=== PATIENT | female | born 1995 | race Caucasian/White ===

== ENCOUNTER 2016-09-15 10:11 | Emergency (ER) | payer OTHER ==
[~2016-09-15] VITALS: Ht 160 cm; Wt 63.5 kg
[~2016-09-15 10:11] MED LIST: BUPROPION HCL75 MG PO; BUTALB-CAFF-AC1 EACH PO; CIPROFLOXACIN500 MG PO; CYCLOBENZAPRINE10 MG PO; MECLIZINE HCL25 MG PO; NORCO 5-325 TA1 EACH PO; PREDNISONE20 MG PO; RECLIPSEN1 EACH PO; TERCONAZOLE20 GM VAGINAL; VENTOLIN HFA18 GM INH; ZOFRAN ODT8 MG PO
--- OUTSIDE RECORDS SUMMARY | 2016-09-15 11:12 | XMS ---
Demographics + + + | Address | [address] | | | [place] [address] | + + + | Preferred Language | Unknown | + + + | Marital Status | Unknown | + + + | Uatsdin Affiliation | Unknown | + + + | Race | Unknown | + + + | Ethnic Group | Unknown | + + + Author + + + | Author | [facility] | + + + | Organization | [facility] | + + + | Address | [address] | | | [place] [address] | + + + | Phone | | + + + Care Team Providers + + + + | Care Furnace Loader Name | Role | Phone | + + + + Unavailable | Unavailable | + + + + PROBLEMS + + + + + + + + | Type | Condition | ICD9-CM | VPQ17-IA | Onset | Condition | SNOMED | | | | Code | Code | Dates | Status | Code | + + + + + + + + | Problem | Dysthymia | F34.1 | | | Active | 26164988 | + + + + + + + + | Problem | Family | | Z83.3 | | Active | 725168620 | | | history of | | | | | | | | diabetes | | | | | | | | mellitus | | | | | | + + + + + + + + | Problem | Fatigue | | R53.83 | | Active | 44344323 | + + + + + + + + | Problem | Right foot | | S99.921A | | Active | | | | injury | | | | | | + + + + + + + + | Assessment | Right foot | | S99.921A | 18 Apr, | Active | | | | injury | | | 2017 | | | + + + + + + + + | Problem | Unable to | R26.89 | | | Active | 63938603 | | | bear | | | | | | | | weight | | | | | | + + + + + + + + | Problem | Vaginal | | N89.8 | | Active | 028102876 | | | discharge | | | | | | + + + + + + + + | Problem | History of | Z86.2 | | | Active | 710451466 | | | anemia | | | | | | + + + + + + + + | Problem | Low | E87.6 | | | Active | 08772463 | | | potassium | | | | | | | | syndrome | | | | | | + + + + + + + + | Problem | Acute | | N30.01 | | Active | 45300289 | | | cystitis | | | | | | | | with | | | | | | | | hematuria | | | | | | + + + + + + + + | Problem | On | V25.49 | | | Active | 793188783 | | | Depo-Prove | | | | | | | | ra for | | | | | | | | contracept | | | | | | | | ion | | | | | | + + + + + + + + | Problem | Blurry | 368.8 | | | Active | 82293968 | | | vision, | | | | | | | | bilateral | | | | | | + + + + + + + + | Problem | Asthma | 493.90 | | | Active | 411078280 | + + + + + + + + | Problem | Drug | 995.20 | | | Active | 27791617 | | | reaction | | | | | | + + + + + + + + | Problem | Migraine | 346.90 | | | Active | 75848925 | + + + + + + + + | Problem | Depression | | F32.9 | | Active | 136685664 | + + + + + + + + | Problem | Menorrhagi | 626.2 | | | Active | 663930267 | | | a | | | | | | + + + + + + + + | Problem | Acute | | J01.11 | | Active | 52325515 | | | recurrent | | | | | | | | frontal | | | | | | | | sinusitis | | | | | | + + + + + + + + | Problem | Blood | 289.9 | | | Active | 24791885 | | | dyscrasia | | | | | | + + + + + + + + | Problem | BOM | H66.93 | | | Active | 09661070 | | | (bilateral | | | | | | | | otitis | | | | | | | | media) | | | | | | + + + + + + + + ALLERGIES + + + + +--------+ | Substance | Reaction | Event Type | Date | Status | + + + + +--------+ | Latex | irritation | Drug Allergy | Jun, | Active | + + + + +--------+ | Depo Provera IM | visual | Drug Allergy | Jun, | Active | | | changes/blurry | | | | | | vision | | | | + + + + +--------+ SOCIAL HISTORY No smoking Hx information available PLAN OF CARE VITAL SIGNS + + + + | Height | 63.5 in | 2016-06-20 | + + + + | Weight | 162.0 lbs | 2016-06-20 | + + + + | BMI | 28.24 kg/m2 | 2016-06-20 | + + + + | Temperature | 98.3 degrees Fahrenheit | 2016-06-20 | + + + + | Heart Rate | 95 /min | 2016-06-20 | + + + + | Blood pressure systolic | 117 mm Hg | 2016-06-20 | + + + + | Blood pressure diastolic | 59 mm Hg | 2016-06-20 | + + + + MEDICATIONS + + + + + + + +--------+ | Medicati | Instruct | Dosage | Frequenc | Start | End Date | Duration | Status | | on | ions | | y | Date | | | | + + + + + + + +--------+ | EpiPen | Injectio | | | | | | Active | | 0.3 | n prn | | | | | | | | MG/0.3ML | allergie | | | | | | | | | s | | | | | | | + + + + + + + +--------+ | Wellbutr | Orally | 1 tablet | 12h | 14 Feb, | | 30 days | Active | | in SR | Twice a | | | 2016 | | | | | 150 MG | day | | | | | | | + + + + + + + +--------+ | Albutero | Inhalati | 2 puffs | 4h | 13 Dec, | | 30 days | Active | | l | on every | as | | 2013 | | | | | Sulfate | 4 hrs | needed | | | | | | | HFA 108 | | | | | | | | | (90 | | | | | | | | | Base) | | | | | | | | | MCG/ACT | | | | | | | | + + + + + + + +--------+ | Toradol | orally | as | | 18 Jun, | Jun, | 5 day(s) | Active | | 10 mg | tid prn | directed | | 2016 | 2016 | | | + + + + + + + +--------+ RESULTS No Results PROCEDURES + + + + + | Procedure | Date Ordered | Related Diagnosis | Body Site | + + + + + | INJ KETOROLAC | June 20, 2016 | | | | TROMETHAMINE 15 MG | | | | + + + + + | INJECTION | June 20, 2016 | | | | INTRAMUSCULAR OR | | | | | SUBCUTANEOUS | | | | + + + + + | Est Level III | June 20, 2016 | | | | Intermediate | | | | + + + + + IMMUNIZATIONS + + + + + | Vaccine | Route | Administration Date | Status | + + + + + | Ketorolac 30mg | IM Intramuscular | June 20, 2016 | Administered | + + + + +"
--- OUTSIDE RECORDS SUMMARY | 2016-09-15 11:12 | XMS ---
Demographics + + + | Address | [address] | | | [place] [address] | + + + | Preferred Language | Unknown | + + + | Marital Status | Unknown | + + + | Sabianism Affiliation | Unknown | + + + | Race | Unknown | + + + | Ethnic Group | Unknown | + + + Author + + + | Author | [facility] | + + + | Organization | [facility] | + + + | Address | [address] | | | [place] [address] | + + + | Phone | | + + + Care Team Providers + + + + | Care Audience Development Manager Name | Role | Phone | + + + + Unavailable | Unavailable | + + + + PROBLEMS +---------+ + + +--------+ + + | Type | Condition | ICD9-CM | QVD02-PC | Onset | Condition | SNOMED | | | | Code | Code | Dates | Status | Code | +---------+ + + +--------+ + + | Problem | Family | | Z83.3 | | Active | 792011099 | | | history of | | | | | | | | diabetes | | | | | | | | mellitus | | | | | | +---------+ + + +--------+ + + | Problem | Vaginal | | N89.8 | | Active | 514598583 | | | discharge | | | | | | +---------+ + + +--------+ + + | Problem | History of | Z86.2 | | | Active | 928287348 | | | anemia | | | | | | +---------+ + + +--------+ + + | Problem | Encounter | Z32.02 | | | Active | 861543958 | | | for | | | | | | | | | | | | | | | | test with | | | | | | | | result | | | | | | | | negative | | | | | | +---------+ + + +--------+ + + | Problem | Drug | 995.20 | | | Active | 38295831 | | | reaction | | | | | | +---------+ + + +--------+ + + | Problem | UTI | | N39.0 | | Active | 93780432 | | | (urinary | | | | | | | | tract | | | | | | | | infection) | | | | | | +---------+ + + +--------+ + + | Problem | Asthma | 493.90 | | | Active | 194592132 | +---------+ + + +--------+ + + | Problem | Low | E87.6 | | | Active | 20019681 | | | potassium | | | | | | | | syndrome | | | | | | +---------+ + + +--------+ + + | Problem | Acute | | N30.01 | | Active | 13258770 | | | cystitis | | | | | | | | with | | | | | | | | hematuria | | | | | | +---------+ + + +--------+ + + | Problem | Right foot | | S99.921A | | Active | | | | injury | | | | | | +---------+ + + +--------+ + + | Problem | Unable to | R26.89 | | | Active | 55050759 | | | bear | | | | | | | | weight | | | | | | +---------+ + + +--------+ + + | Problem | Menorrhagi | 626.2 | | | Active | 974295231 | | | a | | | | | | +---------+ + + +--------+ + + | Problem | Blood | 289.9 | | | Active | 20010605 | | | dyscrasia | | | | | | +---------+ + + +--------+ + + | Problem | On | V25.49 | | | Active | 978070344 | | | Depo-Prove | | | | | | | | ra for | | | | | | | | contracept | | | | | | | | ion | | | | | | +---------+ + + +--------+ + + | Problem | Blurry | 368.8 | | | Active | 58023413 | | | vision, | | | | | | | | bilateral | | | | | | +---------+ + + +--------+ + + | Problem | Acute | | J01.11 | | Active | 85893563 | | | recurrent | | | | | | | | frontal | | | | | | | | sinusitis | | | | | | +---------+ + + +--------+ + + | Problem | BOM | H66.93 | | | Active | 89259396 | | | (bilateral | | | | | | | | otitis | | | | | | | | media) | | | | | | +---------+ + + +--------+ + + | Problem | Migraine | 346.90 | | | Active | 08830374 | +---------+ + + +--------+ + + | Problem | Dysthymia | F34.1 | | | Active | 03933350 | +---------+ + + +--------+ + + | Problem | Depression | | F32.9 | | Active | 255241669 | +---------+ + + +--------+ + + | Problem | Fatigue | | R53.83 | | Active | 81554242 | +---------+ + + +--------+ + + ALLERGIES Unknown Allergies SOCIAL HISTORY No smoking Hx information available PLAN OF CARE VITAL SIGNS MEDICATIONS Unknown Medications RESULTS No Results PROCEDURES No Known procedures IMMUNIZATIONS No Known Immunizations"
--- OUTSIDE RECORDS SUMMARY | 2016-09-15 11:12 | XMS ---
Demographics + + + | Address | [address] | | | [place] [address] | + + + | Preferred Language | Unknown | + + + | Marital Status | Unknown | + + + | Christianity Affiliation | Unknown | + + + | Race | Unknown | + + + | Ethnic Group | Unknown | + + + Author + + + | Author | [facility] | + + + | Organization | [facility] | + + + | Address | [address] | | | [place] [address] | + + + | Phone | | + + + Care Team Providers + + + + | Care Retail Experience Specialist Name | Role | Phone | + + + + Unavailable | Unavailable | + + + + PROBLEMS + + + + + + + + | Type | Condition | ICD9-CM | DKV13-DK | Onset | Condition | SNOMED | | | | Code | Code | Dates | Status | Code | + + + + + + + + | Problem | Family | | Z83.3 | | Active | 920266690 | | | history of | | | | | | | | diabetes | | | | | | | | mellitus | | | | | | + + + + + + + + | Problem | Vaginal | | N89.8 | | Active | 381771725 | | | discharge | | | | | | + + + + + + + + | Problem | History of | Z86.2 | | | Active | 782333236 | | | anemia | | | | | | + + + + + + + + | Problem | Encounter | Z32.02 | | | Active | 274770814 | | | for | | | | | | | | | | | | | | | | test with | | | | | | | | result | | | | | | | | negative | | | | | | + + + + + + + + | Problem | Drug | 995.20 | | | Active | 82228489 | | | reaction | | | | | | + + + + + + + + | Problem | UTI | | N39.0 | | Active | 91886084 | | | (urinary | | | | | | | | tract | | | | | | | | infection) | | | | | | + + + + + + + + | Problem | Asthma | 493.90 | | | Active | 552187605 | + + + + + + + + | Assessment | UTI | | N39.0 | 02 July, | Active | 11015115 | | | (urinary | | | 2017 | | | | | tract | | | | | | | | infection) | | | | | | + + + + + + + + | Problem | Low | E87.6 | | | Active | 74132824 | | | potassium | | | | | | | | syndrome | | | | | | + + + + + + + + | Problem | Acute | | N30.01 | | Active | 50938217 | | | cystitis | | | [...] | R26.89 | | | Active | 41504833 | | | bear | | | | | | | | weight | | | | | | + + + + + + + + | Problem | Menorrhagi | 626.2 | | | Active | 518631938 | | | a | | | | | | + + + + + + + + | Problem | Blood | 289.9 | | | Active | 98372206 | | | dyscrasia | | | | | | + + + + + + + + | Problem | On | V25.49 | | | Active | 880324151 | | | Depo-Prove | | | | | | | | ra for | | | | | | | | contracept | | | | | | | | ion | | | | | | + + + + + + + + | Problem | Blurry | 368.8 | | | Active | 81087859 | | | vision, | | | | | | | | bilateral | | | | | | + + + + + + + + | Problem | Acute | | J01.11 | | Active | 21124947 | | | recurrent | | | | | | | | frontal | | | | | | | | sinusitis | | | | | | + + + + + + + + | Problem | BOM | H66.93 | | | Active | 95256548 | | | (bilateral | | | | | | | | otitis | | | | | | | | media) | | | | | | + + + + + + + + | Problem | Migraine | 346.90 | | | Active | 46216127 | + + + + + + + + | Problem | Dysthymia | F34.1 | | | Active | 27251998 | + + + + + + + + | Problem | Depression | | F32.9 | | Active | 451212905 | + + + + + + + + | Problem | Fatigue | | R53.83 | | Active | 64480684 | + + + + + + + + ALLERGIES + + + + +--------+ | Substance | Reaction | Event Type | Date | Status | + + + + +--------+ | Latex | irritation | Drug Allergy | July, | Active | + + + + +--------+ | Depo Provera IM | visual | Drug Allergy | July, | Active | | | changes/blurry | | | | | | vision | | | | + + + + +--------+ SOCIAL HISTORY No smoking Hx information available PLAN OF CARE VITAL SIGNS + + + + | Height | 63.5 in | 2016-07-04 | + + + + | Weight | 156.4 lbs | 2016-07-04 | + + + + | BMI | 27.27 kg/m2 | 2016-07-04 | + + + + | Temperature | 98.3 degrees Fahrenheit | 2016-07-04 | + + + + | Heart Rate | 98 /min | 2016-07-04 | + + + + | Blood pressure systolic | 123 mm Hg | 2016-07-04 | + + + + | Blood pressure diastolic | 73 mm Hg | 2016-07-04 | + + + + MEDICATIONS + [...] | 2 puffs | 4h | 13 Oct, | | 30 days | Active | [...] + + + + + +--------+ | Macrobid | Orally | 1 | 12h | 04 July, | 7 July, | 5 day(s) | Active | | 100 mg | every 12 | capsule | | 2016 | 2016 | | | | | hrs | with | | | | | | | | | food | | | | | | + [...] SR | Twice a | | | 2017 | | | | | 150 MG | day | | | | | | | + + + + + + + +--------+ RESULTS + +--------+------+ + | Name | Result | Date | Reference Range | + +--------+------+ + | Urinalysis, Dip | | | | | (IH) | | | | + +--------+------+ + | Specific [place] | 1.025 | | | + +--------+------+ + | pH | 5 | | | + +--------+------+ + | Leukocytes | 500 | | | + +--------+------+ + | Nitrite, Urine | neg | | | + +--------+------+ + | Protein | 30 | | | + +--------+------+ + | Glucose | norm | | | + +--------+------+ + | Ketones | neg | | | + +--------+------+ + | Urobilingen, | norm | | | | Semi-Qn | | | | + +--------+------+ + | Bilirubin | neg | | | + +--------+------+ + | Blood Hemoglobin | 250 | | | | (BLD) | | | | + +--------+------+ + | Urinalysis, HCG | | | | | (IH) | | | | + +--------+------+ + PROCEDURES + + + + + | Procedure | Date Ordered | Related Diagnosis | Body Site | + + + + + | LAB URINALYSIS (DIP | July 04, 2016 | | | | STICK ONLY | | | | + + + + + | Est Level III | July 04, 2016 | | | | Intermediate | | | | + + + + + IMMUNIZATIONS No Known Immunizations"
[2016-09-15] MEDS ORDERED: CIPRO500 MG PO (11:38)
== END 2016-09-15 11:56 | disposition home or self-care (01) ==
LOC: ED 10:11
DX: N39.0 Urinary tract infection, site not specified (principal); J45.909 Unspecified asthma, uncomplicated; Z91.040 Latex allergy status; Z91.011 Allergy to milk products; Z91.018 Allergy to other foods
CPT/HCPCS: 80048; 81001; 84703; 85025; 96361; 96374; 96375; 99283; J1885; J2405; J7030

== ENCOUNTER 2016-10-12 03:14 | Emergency (ER) | payer OTHER ==
[~2016-10-12] VITALS: Ht 160 cm; Wt 77.1 kg
[~2016-10-12 03:14] MED LIST changes: +CIPRO500 MG PO
--- OUTSIDE RECORDS SUMMARY | 2016-10-12 03:54 | XMS ---
Demographics + + + | Address | [address] | | | [place] [address] | + + + | Preferred Language | Unknown | + + + | Marital Status | Unknown | + + + | Sikh Affiliation | Unknown | + + + | Race | Unknown | + + + | Ethnic Group | Unknown | + + + Author + + + | Author | [facility] | + + + | Organization | [facility] | + + + | Address | [address] | | | [place] [address] | + + + | Phone | | + + + Care Team Providers + + + + | Care Windows Phone Developer Name | Role | Phone | + + + + Unavailable | Unavailable | + + + + PROBLEMS +---------+ + + +--------+ + + | Type | Condition | ICD9-CM | TXZ37-IL | Onset | Condition | SNOMED | | | | Code | Code | Dates | Status | Code | +---------+ + + +--------+ + + | Problem | Family | | Z83.3 | | Active | 068538932 | | | history of | | | | | | | | diabetes | | | | | | | | mellitus | | | | | | +---------+ + + +--------+ + + | Problem | Vaginal | | N89.8 | | Active | 626921102 | | | discharge | | | | | | +---------+ + + +--------+ + + | Problem | History of | Z86.2 | | | Active | 901114349 | | | anemia | | | | | | +---------+ + + +--------+ + + | Problem | Encounter | Z32.02 | | | Active | 977462464 | | | for | | | | | | | | | | | | | | | | test with | | | | | | | | result | | | | | | | | negative | | | | | | +---------+ + + +--------+ + + | Problem | Drug | 995.20 | | | Active | 70671438 | | | reaction | | | | | | +---------+ + + +--------+ + + | Problem | UTI | | N39.0 | | Active | 59010494 | | | (urinary | | | | | | | | tract | | | | | | | | infection) | | | | | | +---------+ + + +--------+ + + | Problem | Asthma | 493.90 | | | Active | 060587378 | +---------+ + + +--------+ + + | Problem | Low | E87.6 | | | Active | 39874778 | | | potassium | | | | | | | | syndrome | | | | | | +---------+ + + +--------+ + + | Problem | Acute | | N30.01 | | Active | 58827153 | | | cystitis | | | [...] | R26.89 | | | Active | 85537645 | | | bear | | | | | | | | weight | | | | | | +---------+ + + +--------+ + + | Problem | Menorrhagi | 626.2 | | | Active | 757313303 | | | a | | | | | | +---------+ + + +--------+ + + | Problem | Blood | 289.9 | | | Active | 90112533 | | | dyscrasia | | | | | | +---------+ + + +--------+ + + | Problem | On | V25.49 | | | Active | 258576146 | | | Depo-Prove | | | | | | | | ra for | | | | | | | | contracept | | | | | | | | ion | | | | | | +---------+ + + +--------+ + + | Problem | Blurry | 368.8 | | | Active | 41828722 | | | vision, | | | | | | | | bilateral | | | | | | +---------+ + + +--------+ + + | Problem | Acute | | J01.11 | | Active | 18755733 | | | recurrent | | | | | | | | frontal | | | | | | | | sinusitis | | | | | | +---------+ + + +--------+ + + | Problem | BOM | H66.93 | | | Active | 87104206 | | | (bilateral | | | | | | | | otitis | | | | | | | | media) | | | | | | +---------+ + + +--------+ + + | Problem | Migraine | 346.90 | | | Active | 05796634 | +---------+ + + +--------+ + + | Problem | Dysthymia | F34.1 | | | Active | 20779879 | +---------+ + + +--------+ + + | Problem | Depression | | F32.9 | | Active | 644922696 | +---------+ + + +--------+ + + | Problem | Fatigue | | R53.83 | | Active | 12421238 | +---------+ + + +--------+ + + ALLERGIES + + + + +--------+ | Substance | Reaction | Event Type | Date | Status | + + + + +--------+ | Latex | irritation | Drug Allergy | Sep, | Active | + + + + +--------+ | Depo Provera IM | visual | Drug Allergy | Sep, | Active | | | changes/blurry | | | | | | vision | | | | + + + + +--------+ SOCIAL HISTORY No smoking Hx information available PLAN OF CARE + +---------+ | Activity | Details | + +---------+ +---+ | | +---+ + + + | Follow Up | as scheduled with PCP Reason:null | + + + | Pending Test | Urine Culture, Routine | + + + VITAL SIGNS + + + + | Height | 63.5 in | 2016-09-09 | + + + + | Weight | 165.2 lbs | 2016-09-09 | + + + + | BMI | 28.80 kg/m2 | 2016-09-09 | + + + + | Temperature | 99.1 degrees Fahrenheit | 2016-09-09 | + + + + | Heart Rate | 88 /min | 2016-09-09 | + + + + | Blood pressure systolic | 106 mm Hg | 2016-09-09 | + + + + | Blood pressure diastolic | 75 mm Hg | 2016-09-09 | + + + + MEDICATIONS + [...] Orally | 1 tablet | 12h | Apr, | | 30 days | Active | | in SR | Twice a | | | 2016 | | | | | 150 MG | day | | | | | | | + + + + + + + +--------+ | Bactrim | Orally | 1 tablet | 12h | Sep, | 11 Sep, | 3 days | Active | | DS | bid | | | 2016 | 2016 | | | | 800-160 | | | | | | | | | MG | | | | | | | | + + + + + + + +--------+ | BuPROPio | Orally | 1 tablet | 24h | | | | Active | | n HCl ER | Once a | in the | | | | | | | (XL) | day | morning | | | | | | | 150 MG | | | | | | | [...] | | + +--------+------+ + | Specific [place] | 1.020 | | | + +--------+------+ + | pH | 5 | | | + +--------+------+ + | Leukocytes | 500 | | | + +--------+------+ + | Nitrite, Urine | neg | | | + +--------+------+ + | Protein | 100 | | | + +--------+------+ + | Glucose | norm | | | + +--------+------+ + | Ketones | 15 | | | + +--------+------+ + | Urobilingen, | 1 | | | | Semi-Qn | | | | + +--------+------+ + | Bilirubin | 1 | | | + +--------+------+ + | [...] + + | LAB URINALYSIS (DIP | September 09, 2016 | | | | STICK ONLY | | | | + + + + + | FC [id number] URINE | September 09, 2016 | | | | TEST | | | | + + + + + | Est Level III | September 09, 2016 | | | | Intermediate | | | | + + + + + IMMUNIZATIONS No Known Immunizations"
== END 2016-10-12 07:15 | disposition home or self-care (01) ==
LOC: ED 03:14
DX: O26.891 Other specified pregnancy related conditions, first trimester (principal); R10.2 Pelvic and perineal pain; O99.511 Diseases of the respiratory system complicating pregnancy, first trimester; J45.909 Unspecified asthma, uncomplicated; O99.331 Smoking (tobacco) complicating pregnancy, first trimester; F17.200 Nicotine dependence, unspecified, uncomplicated; Z87.442 Personal history of urinary calculi; Z91.040 Latex allergy status; Z91.018 Allergy to other foods; Z88.8 Allergy status to other drugs, medicaments and biological substances; Z79.899 Other long term (current) drug therapy; Z3A.01 Less than 8 weeks gestation of pregnancy
CPT/HCPCS: 76801; 76817; 81001; 84702; 85025; 99284

== ENCOUNTER 2016-12-11 21:23 | Emergency (ER) | payer OTHER ==
[~2016-12-11] VITALS: Ht 160 cm; Wt 77.1 kg
== END 2016-12-11 23:49 | disposition home or self-care (01) ==
LOC: ED 21:23
DX: O9A.212 Injury, poisoning and certain other consequences of external causes complicating pregnancy, second trimester (principal); S39.91XA Unspecified injury of abdomen, initial encounter; O99.512 Diseases of the respiratory system complicating pregnancy, second trimester; J45.909 Unspecified asthma, uncomplicated; Z87.442 Personal history of urinary calculi; Z3A.16 16 weeks gestation of pregnancy; Z88.8 Allergy status to other drugs, medicaments and biological substances; Z91.040 Latex allergy status; Z91.018 Allergy to other foods; Z79.899 Other long term (current) drug therapy
CPT/HCPCS: 76815; 81001; 99284

== ENCOUNTER 2017-01-27 16:26 | Emergency (ER) | payer OTHER ==
[~2017-01-27] VITALS: Ht 160 cm; Wt 77.1 kg
[2017-01-27] MEDS ORDERED: DIPHENHYDRAMINE25 MG PO (19:56)
[2017-01-27] MEDS ORDERED: PROCHLORPERAZIN10 MG PO (19:56)
[2017-01-27] MEDS ORDERED: CEPHALEXIN500 MG PO (19:56)
== END 2017-01-27 20:14 | disposition home or self-care (01) ==
LOC: ED 16:26
DX: O9A.212 Injury, poisoning and certain other consequences of external causes complicating pregnancy, second trimester (principal); O23.42 Unspecified infection of urinary tract in pregnancy, second trimester; O99.89 Other specified diseases and conditions complicating pregnancy, childbirth and the puerperium; R11.0 Nausea; Z87.442 Personal history of urinary calculi; Z91.011 Allergy to milk products; Z91.040 Latex allergy status; Z91.048 Other nonmedicinal substance allergy status; Z79.899 Other long term (current) drug therapy; W10.9XXA Fall (on) (from) unspecified stairs and steps, initial encounter
CPT/HCPCS: 80053; 81001; 85025; 87088; 96361; 96374; 96375; 99284; J0780; J1200; J7030

== ENCOUNTER 2017-04-09 22:48 | Emergency (ER) | payer OTHER ==
[~2017-04-09] VITALS: Ht 160 cm; Wt 77.1 kg
[~2017-04-09 22:48] MED LIST changes: +CEPHALEXIN500 MG PO; +DIPHENHYDRAMINE25 MG PO; +PROCHLORPERAZIN10 MG PO
[2017-04-09] MEDS ORDERED: ONE A DAY PREN1 EACH PO (23:06)
[2017-04-12] MEDS ORDERED: TYLENOL325 MG PO (20:54)
[2017-04-12] MEDS ORDERED: EPIN0.3P IM (20:55)
== END 2017-04-10 01:40 | disposition home or self-care (01) ==
LOC: ED 22:48
DX: O99.513 Diseases of the respiratory system complicating pregnancy, third trimester (principal); J98.8 Other specified respiratory disorders; B97.89 Other viral agents as the cause of diseases classified elsewhere; Z91.040 Latex allergy status; Z91.011 Allergy to milk products; Z91.018 Allergy to other foods; Z88.8 Allergy status to other drugs, medicaments and biological substances; Z79.899 Other long term (current) drug therapy
CPT/HCPCS: 59025; 80053; 81001; 85025; 87502; 96360; 99283; J7030

== ENCOUNTER 2017-05-31 00:01 | Inpatient (IN) | payer OTHER ==
[~2017-05-31] VITALS: Ht 162.6 cm; Wt 92.0 kg
[~2017-05-31 00:01] MED LIST changes: +EPIN0.3P IM; +ONE A DAY PREN1 EACH PO; +TYLENOL325 MG PO
--- NOTE | 2017-06-01 11:35 | PR ---
[facility] [address] [facility] [place], [place] [address] Signed Progress Notes IP Datetime Report Generated by CPN: 06/01/2017 11:35 PROGRESS NOTES: [id number] Impression: Normal progression of labor Procedures: Artificial ROM Plan: Continue present management; Anticipate Vaginal Delivery VITAL SIGNS: [id number] Vital Signs: Reviewed; Within Normal Limits EXAM: [id number] Dilatation: 2.5 Effacement: 80 Station: -2 Uterine Contractions: every 2-3 minutes MEMBRANES: [id number] Membrane Status: Ruptured Amniotic Fluid Color: Clear ROM Note: AROM wtihout difficulty Comments: Doing well with contractions, no plan for Epidural at this time. Fetus A: [id number] FHR Baseline: 130 Variability: Moderate 6-25bpm Accelerations: 15X15 Presentation: Vertex Fetus B: [id number] Signing Physician: Bertrand Humphreys MD Copies: ~ *Electronically Signed* 06/01/17 1135 BERTRAND HUMPHREYS MD PATIENT NAME: JOB PATEL PROGRESS NOTE DATE OF : 95 PHYSICIAN: BERTRAND HUMPHREYS MD RPT #: [id number] REPORT IS CONFIDENTIAL AND NOT TO BE RELEASED WITHOUT AUTHORIZATION
--- NOTE | 2017-06-04 10:35 | PR ---
[facility] [address] [facility] [place], [place] [address] Signed PP Progress Notes Datetime Report Generated by CPN: 06/04/2017 10:35 SUBJECTIVE: [id number] Pain: Within normal limits Pain Comments: still pain in perineum, but nto increasing Nausea/Vomiting: Denies Nausea/Vomiting Comments: last evening Vital Signs: [id number] Vital Signs: Reviewed Notable Details: PP Hgb/Hct = 8.2/24.9 EXAM: [id number] Abdomen/Uterus: Normal Lochia: Normal Extremities: Normal Exam Comments: Skin pale. No vaginal bleeding at this timne IMPRESSION/PLAN/PROCEDURES: [id number] Impression: Normal progression Other Impression: PP Hemorrhage and Syncopal episode yesterday Plan: Continue present management Other Plans: Continue IV fluids Procedures: None Progress Notes: Doing well, feeling better, ready to go home. Signing Physician: Bertrand Humphreys MD Copies: ~ *Electronically Signed* 06/04/17 1035 BERTRAND HUMPHREYS MD PATIENT NAME: JOB PATEL PROGRESS NOTE DATE OF : 95 PHYSICIAN: BERTRAND HUMPHREYS MD RPT #: [id number] REPORT IS CONFIDENTIAL AND NOT TO BE RELEASED WITHOUT AUTHORIZATION
== END 2017-06-04 11:48 | disposition home or self-care (01) | DRG 774 ==
LOC: FBC 00:01
PROVIDERS: ADMIT General Practice
PROC: 10E0XZZ Delivery of Products of Conception, External Approach (ICD-10-PCS; principal; 2017-06-01)
PROC: 0W8NXZZ Division of Female Perineum, External Approach (ICD-10-PCS; principal; 2017-06-01)
PROC: 10907ZC Drainage of Amniotic Fluid, Therapeutic from Products of Conception, Via Natural or Artificial Opening (ICD-10-PCS; principal; 2017-06-01)
PROC: 3E033VJ Introduction of Other Hormone into Peripheral Vein, Percutaneous Approach (ICD-10-PCS; principal; 2017-06-01)
PROC: 0DQP0ZZ Repair Rectum, Open Approach (ICD-10-PCS; principal; 2017-06-01)
PROC: 3E0P7VZ Introduction of Hormone into Female Reproductive, Via Natural or Artificial Opening (ICD-10-PCS; principal; 2017-06-01)
PROC: 00HU33Z Insertion of Infusion Device into Spinal Canal, Percutaneous Approach (ICD-10-PCS; 2017-06-01)
PROC: 3E0R3BZ Introduction of Anesthetic Agent into Spinal Canal, Percutaneous Approach (ICD-10-PCS; 2017-06-01)
DX: O48.0 Post-term pregnancy (principal); O72.0 Third-stage hemorrhage; O70.3 Fourth degree perineal laceration during delivery; Z37.0 Single live birth; O69.81X0 Labor and delivery complicated by cord around neck, without compression, not applicable or unspecified; Z3A.40 40 weeks gestation of pregnancy
CPT/HCPCS: 01960; 36415; 36430; 80048; 82803; 85025; 85027; 86850; 86900; 86901; 86920; J2550; J2590; J3010; J7120; P9016

== ENCOUNTER 2018-07-15 02:19 | Emergency (ER) | payer OTHER ==
[~2018-07-15] VITALS: Ht 162.6 cm; Wt 79.4 kg
--- OUTSIDE RECORDS SUMMARY | 2018-07-15 02:22 | XMS ---
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 E.Jayden VISIT COUNT (12 MO.) 1 [facility] TOTAL 1 NOTE: Visits indicate total known visits. ED/UCC VISIT TRACKING (12 MO.) 07/15/2018 02:20 [facility] [place] TYPE: Emergency COMPLAINT: - VAGINAL BLEEDING-14WEEKS INPATIENT VISIT TRACKING (12 MO.) No inpatient visits to display in this time frame [email or web address]
[2018-07-15] MEDS ORDERED: PHENERGAN12.5 MG PO (02:32)
== END 2018-07-15 03:20 | disposition home or self-care (01) ==
LOC: ED 02:19
DX: O20.9 Hemorrhage in early pregnancy, unspecified (principal); Z3A.10 10 weeks gestation of pregnancy; J45.909 Unspecified asthma, uncomplicated; Z87.442 Personal history of urinary calculi; Z88.8 Allergy status to other drugs, medicaments and biological substances; Z91.040 Latex allergy status; Z91.018 Allergy to other foods; Z79.899 Other long term (current) drug therapy
CPT/HCPCS: 80048; 81001; 84702; 85025; 86900; 86901; 99284

== ENCOUNTER 2018-08-15 18:19 | Emergency (ER) | payer OTHER ==
[~2018-08-15] VITALS: Ht 162.6 cm; Wt 79.4 kg
[~2018-08-15 18:19] MED LIST changes: +PHENERGAN12.5 MG PO
--- OUTSIDE RECORDS SUMMARY | 2018-08-15 18:22 | XMS ---
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 E.Jayden VISIT COUNT (12 MO.) 2 [facility] TOTAL 2 NOTE: Visits indicate total known visits. 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
--- NOTE | 2018-08-15 19:24 | EKG ---
[facility] [address] [facility] [place], [place] [address] Signed Normal sinus rhythm Normal ECG No previous ECGs available Confirmed by ATILIO SOTOMAYOR MD ([id number]) on 08/15/2018 7:24:05 PM Electronically Signed By: ATILIO SOTOMAYOR MD 08/15/18 1924 PATIENT NAME: JOB PATEL Electrocardiogram DATE OF : [birth year] PHYSICIAN: ATILIO SOTOMAYOR MD REPORT #: [id number] REPORT IS CONFIDENTIAL AND NOT TO BE RELEASED WITHOUT AUTHORIZATION
== END 2018-08-15 20:35 | disposition home or self-care (01) ==
LOC: ED 18:19
DX: O99.89 Other specified diseases and conditions complicating pregnancy, childbirth and the puerperium (principal); R55 Syncope and collapse; Z3A.18 18 weeks gestation of pregnancy; Z87.442 Personal history of urinary calculi; Z91.040 Latex allergy status; Z91.018 Allergy to other foods; Z88.8 Allergy status to other drugs, medicaments and biological substances
CPT/HCPCS: 80053; 81001; 83735; 84484; 85025; 93005; 93010; 96360; 99284-25; J7030

== ENCOUNTER 2019-01-08 05:49 | Inpatient (IN) | payer OTHER ==
[~2019-01-08] VITALS: Ht 162.6 cm; Wt 93.0 kg
--- NOTE | 2019-01-08 09:28 | PR ---
[facility] [address] [place], [place] [address] Signed Progress Notes IP Datetime Report Generated by CPN: 01/08/2019 09:28 PROGRESS NOTES: [id number] Impression: Normal progression of labor; Reassuring heart rate Procedures: Artificial ROM Plan: Continue present management Informed Consent Obtain: Vaginal Delivery Other Informed Consents: AROM VITAL SIGNS: [id number] Vital Signs: Reviewed; Within Normal Limits EXAM: [id number] Dilatation: 3.0 Effacement: 80 Station: -3 Uterine Contractions: rare MEMBRANES: [id number] ROM Note: After informed consent and verbal consent given, vertex evaluated and noted to be well applied to cervix. Bulging membranes noted, and easily ruptured for moderate amount clear fluid. Mother and baby recovering well. Comments: Pt seen and examined. Comfortable w/ epidural. Reviewed AROM in detail and AROM performed easily as above. Reviewed anticipated course of labor and indications for augementation w/ pitocin if needed. All questions answered. Fetus A: [id number] FHR Baseline: 125 Variability: Moderate 6-25bpm Accelerations: 15X15 Decelerations: None FHR Category: Category I Presentation: Vertex Comments on Fetus A: No evidence of metabolic acidosis Fetus B: [id number] Signing Physician: Leonard Dawn DO Copies: ~ *Electronically Signed* 01/08/19 0928 LEONARD DAWN DO PATIENT NAME: JOB PATEL PROGRESS NOTE DATE OF : [birth year] PHYSICIAN: LEONARD DAWN DO RPT #: [id number] REPORT IS CONFIDENTIAL AND NOT TO BE RELEASED WITHOUT AUTHORIZATION
--- NOTE | 2019-01-08 12:05 | PR ---
[facility] [address] [place], [place] [address] Signed Progress Notes IP Datetime Report Generated by CPN: 01/08/2019 12:05 PROGRESS NOTES: [id number] Impression: Normal progression of labor; Reassuring heart rate Procedures: Artificial ROM Plan: Continue present management Informed Consent Obtain: Vaginal Delivery Other Informed Consents: AROM VITAL SIGNS: [id number] Vital Signs: Reviewed EXAM: [id number] Dilatation: 4.0 Effacement: 85 Station: -2 Uterine Contractions: q 4 minutes MEMBRANES: [id number] ROM Note: After informed consent and verbal consent given, vertex evaluated and noted to be well applied to cervix. Bulging membranes noted, and easily ruptured for moderate amount clear fluid. Mother and baby recovering well. Comments: Pt doing well. CTXs becoming more uncomfortable and requesting rebolus by anesthesia. Ctxs seem to be becoming more regular and cervical change noted. Continue expectant management. Fetus A: [id number] FHR Baseline: 125 Variability: Moderate 6-25bpm Accelerations: 15X15 Decelerations: None FHR Category: Category I Presentation: Vertex Comments on Fetus A: No evidence of metabolic acidosis Fetus B: [id number] Signing Physician: Leonard Dawn DO Copies: ~ *Electronically Signed* 01/08/19 7997 LEONARD DAWN DO PATIENT NAME: JOB PATEL PROGRESS NOTE DATE OF : [birth year] PHYSICIAN: LEONARD DAWN DO RPT #: [id number] REPORT IS CONFIDENTIAL AND NOT TO BE RELEASED WITHOUT AUTHORIZATION
--- NOTE | 2019-01-08 17:30 | PR ---
[facility] [address] [facility] [place], [place] [address] Signed PP Progress Notes Datetime Report Generated by CPN: 01/08/2019 17:30 SUBJECTIVE: [id number] Pain: Within normal limits Nausea/Vomiting: Denies Flatus: No Vital Signs: [id number] Vital Signs: Reviewed; Within Normal Limits EXAM: [id number] Cardiovascular: Normal Respiratory: Normal Abdomen/Uterus: Normal Lochia: Normal Vulva/Perineum: Normal Breasts: Not Done CVA Tenderness: Not Done Extremities: Normal Exam Comments: Fundus firm U=0 Scant bleeding w/ uterine massage. TXA infusing IMPRESSION/PLAN/PROCEDURES: [id number] Impression: Normal progression Progress Notes: Pt doing well and bleeding has significantly improved. Fundus remains firm. TXA 1g IV ordered and infusing. PT doing well. No lightheadeness/dizziness. Tachycardia in 110's. Signing Physician: Leonard Dawn DO Copies: ~ *Electronically Signed* 01/08/19 4950 LEONARD DAWN DO PATIENT NAME: JOB PATEL PROGRESS NOTE DATE OF : [birth year] PHYSICIAN: LEONARD DAWN DO RPT #: [id number] REPORT IS CONFIDENTIAL AND NOT TO BE RELEASED WITHOUT AUTHORIZATION
--- NOTE | 2019-01-09 08:18 | PR ---
[facility] [address] [facility] [place] [address] Signed PP Progress Notes Datetime Report Generated by CPN: 01/09/2019 08:18 SUBJECTIVE: [id number] Pain: Within normal limits Nausea/Vomiting: Denies Flatus: Yes Bowel Movement: No Vital Signs: [id number] Vital Signs: Reviewed; Within Normal Limits EXAM: [id number] Cardiovascular: Normal Respiratory: Normal Abdomen/Uterus: Normal Lochia: Normal Vulva/Perineum: Not Done Breasts: Not Done CVA Tenderness: Normal Extremities: Normal Exam Comments: Fundus firm U-2 nontender IMPRESSION/PLAN/PROCEDURES: [id number] Impression: Normal progression Plan: Continue present management Progress Notes: Pt doing well and bleeding has significantly improved. Fundus remains firm. TXA 1g IV ordered and infusing. Pt doing well. No lightheadeness/dizziness. Tachycardia in 110's. Will continue to monitor bleeding, urine output, and vitals closely. Discussed if significant bleeding, would likely proceed to exam under anesthesia, D_C, and possible Bakri Signing Physician: Leonard Dawn DO Copies: ~ *Electronically Signed* 01/09/19817 LEONARD DAWN DO PATIENT NAME: JOB PATEL PROGRESS NOTE DATE OF : 95 PHYSICIAN: LEONARD DAWN DO RPT #: [id number] REPORT IS CONFIDENTIAL AND NOT TO BE RELEASED WITHOUT AUTHORIZATION
--- NOTE | 2019-01-10 09:54 | PR ---
[facility] [address] [facility] [place], [place] [address] Signed PP Progress Notes Datetime Report Generated by CPN: 01/10/2019 09:54 SUBJECTIVE: [id number] Pain: Within normal limits Nausea/Vomiting: Denies Flatus: Yes Bowel Movement: No Vital Signs: [id number] Vital Signs: Reviewed; Within Normal Limits EXAM: [id number] Cardiovascular: Normal Respiratory: Normal Abdomen/Uterus: Normal Lochia: Normal Vulva/Perineum: Not Done Breasts: Not Done CVA Tenderness: Normal Extremities: Normal Incision: Not Applicable Progress: Normal Exam Comments: Fundus firm U-2 nontender IMPRESSION/PLAN/PROCEDURES: [id number] Impression: Normal progression Plan: Discharge Progress Notes: Pt seen and examined. Doing well. Ambulating, voiding, and tolerating full diet. Pain and lochia minimal. well. No other concerns. No lightheadedness dizziness. Desires d/c home. Hgb 9.1 Signing Physician: Leonard Dawn DO Copies: ~ *Electronically Signed* 01/10/19 0954 LEONARD DAWN DO PATIENT NAME: JOB PATEL PROGRESS NOTE DATE OF : [birth year] PHYSICIAN: LEONARD DAWN DO RPT #: [id number] REPORT IS CONFIDENTIAL AND NOT TO BE RELEASED WITHOUT AUTHORIZATION
== END 2019-01-10 13:45 | disposition home or self-care (01) | DRG 807 ==
LOC: FBC 05:49
PROVIDERS: ADMIT Obstetrics & Gynecology
PROC: 10E0XZZ Delivery of Products of Conception, External Approach (ICD-10-PCS; principal; 2019-01-08)
PROC: 10D17Z9 Manual Extraction of Products of Conception, Retained, Via Natural or Artificial Opening (ICD-10-PCS; 2019-01-08)
PROC: 0UQMXZZ Repair Vulva, External Approach (ICD-10-PCS; 2019-01-08)
PROC: 10907ZC Drainage of Amniotic Fluid, Therapeutic from Products of Conception, Via Natural or Artificial Opening (ICD-10-PCS; 2019-01-08)
PROC: 00HU33Z Insertion of Infusion Device into Spinal Canal, Percutaneous Approach (ICD-10-PCS; 2019-01-08)
PROC: 3E0R3BZ Introduction of Anesthetic Agent into Spinal Canal, Percutaneous Approach (ICD-10-PCS; 2019-01-08)
DX: O71.82 Other specified trauma to perineum and vulva (principal); Z37.0 Single live birth; Z3A.39 39 weeks gestation of pregnancy; O73.1 Retained portions of placenta and membranes, without hemorrhage; O99.344 Other mental disorders complicating childbirth; F32.9 Major depressive disorder, single episode, unspecified; O99.52 Diseases of the respiratory system complicating childbirth; J45.909 Unspecified asthma, uncomplicated; Z79.899 Other long term (current) drug therapy; Z87.891 Personal history of nicotine dependence
CPT/HCPCS: 36415; 85027; A9270; J2405; J2590; J2795

== ENCOUNTER 2021-07-01 09:34 | Inpatient (IN) | payer OTHER ==
[~2021-07-01] VITALS: Ht 162.6 cm; Wt 74.8 kg
--- OUTSIDE RECORDS SUMMARY | 2021-07-01 09:36 | XMS ---
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 [facility] has no Care Guidelines for this patient. Care History Medical/Surgical 08/16/2018 [facility] - PATIENT HAS AN OBGYN- [facility]- NEXT APT 09/10/18. E.DAsif V[facility] (12 MO.) [facility] NOTE: Visits indicate total known visits. ED/C VISIT TRACKING (12 MO.) [facility] 09[facility] [place] [facility] COMPLAINT: - VOMITING, ABD PAIN INPATIENT VISIT TRACKING (12 MO.) No inpatient visits to display in this time frame [email or web address]
--- NOTE | 2021-07-01 15:00 | NUR ---
REPORT RECEIVED FROM TRAY DELIVERY AIDE AND PT ARRIVED VIA STRETCHER. SHE C/O NAUSEA UPON ARRIVAL AND ADMIN ZOFRAN. SHE DENIES PAIN. FAMILY AT BEDSIDE. IVF ADMIN. IV WNL. IV ABX INFUSING. DISCUSSED SAFETY, MEDS AND POC. LEFT RESTING WITH CALL LIGHT IN REACH.
--- NOTE | 2021-07-01 16:00 | NUR ---
PT. C/O NAUSEA AND VOMITED 200ML GREEN/CLEAR EMESIS. ADMIN. PHENERGAN. ASSESSMENT COMPLETED. PT. DENIES FURTHER NEEDS.
[2021-07-01] MEDS ORDERED: FLOVENT HFA10.6 GM INH (17:19)
--- NOTE | 2021-07-01 17:19 | NUR ---
MED REC COMPLETE
--- NOTE | 2021-07-01 17:25 | NUR ---
NOTIFIED THAT PT. UNABLE TO TOLERATE NG TUBE. HE IS AWARE AND STATES ORDER CAN BE DC'D
--- NOTE | 2021-07-01 18:39 | NUR ---
ROUNDING ON PT. SHE IS RESTING WITH EYES CLOSED WITH AT BEDSIDE. BREATHING IS EVEN AND UNLABORED.
--- NOTE | 2021-07-01 19:00 | NUR ---
SHIFT REPORT RECEIVED FROM DAYSHIFT RN ANDRIY AT BEDSIDE. pt RESTING QUIETLY IN BED WITH EYES CLOSED, ON RA. RR EVEN AND UNLABORED, NO DISTRESS NOTED. IV FLUIDS INFUSING DIRECTED, CALL LIGHT INREACH.
--- NOTE | 2021-07-01 22:00 | NUR ---
IN TO GET VITALS, TEMP IS ELEVATED, RN NOW IN RM, PT ASSISTED UP TO THE TOILET TO ATEMPT A VOID, RN REMAINS IN RM TO FINISH CARES, PT IS NPO STATUS
--- NOTE | 2021-07-01 22:12 | NUR ---
ASSESSMENT COMPLETE, NEW BAG IV FLUIDS HUNG AND INFUSING DIRECTED. IV SITE WNL, BRISK BLOOD RETURN NOTED. ELEVATED TEMP ALSO NOTED, BUT WITHIN PARAMETERS. pt DEMONSTRATED USE OF IS AND pt HAD ROOM TEMP LOWERED AND EXCESS BLANKETS REMOVED. COOL RAG IN REACH. NO FURTHER NEEDS, CALL LIGHT IN REACH.
--- NOTE | 2021-07-01 22:51 | NUR ---
IN PUMP WAS BEEPING, IT IS NOW INFUSING FINE. PT DENIES NEEDS, CALL LIGHT IS CLOSE.
--- NOTE | 2021-07-01 23:45 | NUR ---
pt RESTING IN BED WITH EYES CLOSED. ON RA, RR EVEN AND UNLABORED. NO DISTRESS NOTED. REMAINS IN ROOM. CALL LIGHT IN REACH.
--- NOTE | 2021-07-02 02:04 | NUR ---
DISCUSSED MOST RECENT VS WITH NURSE MIDWIFE, TEMP ELEVATED BUT WITHIN PARAMETERS. pt DECLINED NEED FOR TYLENOL FOR COMFORT. REPORTS TOLERABLE 4-5/10 PAIN, DENEIS NAUSEA. pt HAS BEEN DEMONSTRATING USE OF IS AND IS ENCOURAGED TO TAKE DEEP BREATHS. SBP IN 90'S, pt IS ASYMPTOMATIC AND CURRENTLY RESTING IN BED. DENIES DIZZINESS OR LIGHTHEADEDNESS. WILL CONITNUE TO MONITOR.
--- NOTE | 2021-07-02 04:50 | NUR ---
IN TO GET VITALS, PT UP TO VOID, BACK TO BED SDCS IN PLACE, NPO STATUS
--- NOTE | 2021-07-02 04:51 | NUR ---
CALL LIGHT ANSWERED, IV PUMP ALARMING. ISSUE RESOLVED, NEW BAG IV FLUIDS INFUSING DIRECTED. IV SITE WNL. VSS AND I&O'S COMPLETE. pt DENEIS NEED FOR PAIN AND/OR NAUSEA MEDICATION. CALL LIGHT IN REACH, WILFREDO IN ROOM. SCD'S IN PLACE.
--- NOTE | 2021-07-02 05:40 | NUR ---
IN ROOM TO ADMINISTER ZOFRAN FOR NAUSEA IV SLOWPUSH. PT DENIES FURTHER NEEDS, CALL LIGHT IS CLOSE.
--- NOTE | 2021-07-02 08:05 | CONS ---
[facility] [address] [place], [place] [address] Signed DATE OF CONSULTATION: 07/01/2021 CHIEF COMPLAINT: Right lower quadrant abdominal pain. HISTORY OF PRESENT ILLNESS: Carlos is a 25-year-old female, who has had some trouble with right-sided abdominal pain after she eats. She woke up this morning with right lower quadrant abdominal pain with vomiting. Her mom brought her to the emergency room for evaluation. Her white blood cell count was elevated, but the liver function tests were fine. She did receive an ultrasound of the right upper quadrant, it was unremarkable. She therefore had a CT scan of the abdomen and pelvis performed. She has thickening to the ileum contributing to partial small-bowel obstruction. The ER physician has tried to give her an NG tube three times and she vomited up all three times. Her mom is at the bedside. I have been asked to see her as a general surgeon on-call. They tell me there is no family history of Crohn disease or ulcerative colitis. The mom is adopted, is not very familiar at all with her family. PAST MEDICAL HISTORY: Asthma, migraines, and kidney stones. PAST SURGICAL HISTORY: IUD, wisdom teeth extraction, and episiotomy. SOCIAL HISTORY: She does not smoke or drink. She does have a little marijuana once in a while. 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 She has had two children born vaginally. She is not . Her mom, Sneha is adopted, at . They prefer the [facility]. FAMILY HISTORY: None. REVIEW OF SYSTEMS: No family history of Crohn's or ulcerative colitis. ALLERGIES: Lactose, Depo-Provera, latex, and tomatoes. MEDICATIONS: Albuterol p.r.n. PHYSICAL EXAMINATION: Electronically Signed By: WILFREDO KNOX MD 07/02/21 0805 PATIENT NAME: CARLOS PATEL CONSULTATION DATE OF : [birth year] REPORT #: [id number] PHYSICIAN: WILFREDO KNOX MD PCP: EDUARDO TODD PA-C REPORT IS CONFIDENTIAL AND NOT TO BE RELEASED WITHOUT AUTHORIZATION [facility] [address] [place], [place] [address] Signed VITAL SIGNS: Her blood pressure is 101/69, heart rate is 60, respiratory rate 14, temperature is 98.4. She is 99% on room air. She is 5 feet 4 inches and 74 kg. GENERAL: Carlos is a 25-year-old female, who is alert, awake, and interactive, but is a little sick from vomiting. Her mom is at the bedside. LUNGS: Clear to auscultation bilaterally. HEART: Regular rate and rhythm, without murmurs. ABDOMEN: Soft and flat. She is tender on the right side of her abdomen, particularly in the right mid and right lower quadrant. LABORATORY DATA: Her white blood count 15.4, hemoglobin 14, neutrophils 93. BUN 13, creatinine 0.79. COVID is negative. Her urine specific gravity is up at 1.030 with ketones. Liver function tests are negative. Albumin is 4.2 and lipase 113. Beta-hCG is negative. RADIOGRAPHIC STUDIES: Ultrasound of right upper quadrant is unremarkable. The CT scan of the abdomen and pelvis shows the terminal ileitis with small bowel obstruction. ASSESSMENT AND PLAN: Carlos is a 25-year-old female, who presents with terminal ileitis and small bowel obstruction, possibly viral ileitis, but it may very well be Crohn disease. Given the fact it actually seems to have gone on for several months. At this point, she has been vomiting and is dehydrated. She has not tolerated the NG tube whatsoever. We are going to go ahead and admit her and give her some IV fluids and start some antibiotics. Repeat the labs in the morning. Currently, she would not be able to tolerate the bowel prep. In the end, if this does not resolve, she may need a segmental small-bowel resection for definitive treatment and diagnosis. I have explained this to Carlos and her mom, they have expressed understanding and agreed to above plan. Wilfredo Knox MD ALB/MODL /[id number] cc: MD Jim Garcia PA Electronically Signed By: WILFREDO KNOX MD 07/02/21 0805 PATIENT NAME: CARLOS PATEL CONSULTATION DATE OF : [birth year] REPORT #: [id number] PHYSICIAN: WILFREDO KNOX MD PCP: EDUARDO TODD PA-C REPORT IS CONFIDENTIAL AND NOT TO BE RELEASED WITHOUT AUTHORIZATION [address] [address] Signed Patient Chart Copies: WILFREDO KNOX MD, RANDALL PA ~ Electronically Signed By: WILFREDO KNOX MD 07/02/21 0805 PATIENT NAME: CARLOS PATEL CONSULTATION DATE OF : [birth year] REPORT #: [id number] PHYSICIAN: WILFREDO KNOX MD PCP: EDUARDO TODD PA-C REPORT IS CONFIDENTIAL AND NOT TO BE RELEASED WITHOUT AUTHORIZATION
--- NOTE | 2021-07-02 08:06 | NUR ---
RESTING, EYES CLOSED, NO DISTRESS, FAMILY IN ROOM
--- NOTE | 2021-07-02 08:39 | NUR ---
PT AWAKES EASILY, UP TO BR, VOIDED AND HAD LIQUID BM WITH SOME SMALL FORMED STOOL, SENT TO LAB. PT ON ROOM AIR, COOP WITH ASSESSMENT. CLEAR LUNGS, REG RR. NO RESP DISTRESS. SCDS ON. NO C/O ABD PAIN. IVF INFUSING. NO EMESIS
--- NOTE | 2021-07-02 09:20 | NUR ---
Rounded on patient, IV ABX infusing, pt ambulates to BR to void SBA. States no nausea/pain at this time.
--- NOTE | 2021-07-02 10:43 | NUR ---
IV phenergan administered on pump for nausea, pt advanced to clear liquids, ice chips and jello provided.
--- NOTE | 2021-07-02 11:40 | NUR ---
pt up to BR, voided, back to bed, no further c/o n/v, IVV abx infusing
--- NOTE | 2021-07-02 14:00 | NUR ---
ASSUMED CARE OF PT., REPORT FROM JAYCOB PENA. RESTING IN BED, MOTHER AT BEDSIDE. DENIES NAUSEA AT THIS TIME. IVF PATENT TO PUMP, UP TO BR WITH IV POLE INDEPENDENTLY. ACTIVE BS RIGHT LOWER AND AND UPPER BUT HYPOACTIVE LEFT UPPER AND LOWER. IS TAKING IN SMALL AMOUNTS OF CL, TOLERATING WELL.
--- NOTE | 2021-07-02 17:20 | NUR ---
VS SHOW PULSE OF 57, HER PULSE HAD TRENDED FROM 60-80S, RADIAL PULSE, APICAL PULSE TAKEN AND LOW 49-54 AND ALSO PER PULSE OX, STATES SHE IS NOT DIZZY WHEN GETTING UP, DENIES DISCOMFORT WITH THIS. B/P 122/60, TCT TO REPORT TO DR. KNOX, ACKNOWLEDGED AND WILL CONTINUE TO MONITOR, NO ORDERS OR CHANGES.
--- NOTE | 2021-07-02 19:20 | NUR ---
SHIFT REPORT RECEIVED FROM DAYSHIFT JEAN BRAXTON AT BEDSIDE. pt AWAKE AND RESTING IN BED, RECENTLY MEDICATED WITH PRN PAIN MEDICATION. pt CURRENTLY RATES AT 7/10. IV FLUIDS INFUSING-RATE DECREASED POTASSIUM RIDER IS ALSO INFUSING. IV SITE WNL. NO NEEDS OR CONCERNS AT THIS TIME. CALL LIGHT IN REACH.
--- NOTE | 2021-07-02 20:31 | NUR ---
CALL LIGHT ANSWERED, IV ALARMING. ISSUE RESOLVED. VSS AND I&O'S COMPLETE. pt UP SBA TO VOID AND BACK TO BED, LITTEL UNSTEADY, GIVEN PAIN MEDICATION AT SHIFT CHANGE, WHEN ASKED TO RATE PAIN ON SCALE, pt STATES, "SLEEPY" AND SMILES. pt RELAXED AND CURRENTLY RESTING IN BED, DENIES NAUSEA. SCD'S ON AND CALL LIGHT IN REACH. IV SITE WNL, BRISK BLOOD RETURN NOTED. FAMILY IN ROOM. NO FURTHER NEEDS. pt REPORTS ABD TENDERNESS MORE SO IN RIGHT QUADRANTS.
--- NOTE | 2021-07-02 21:25 | NUR ---
POTASSIUM TJ GRANT, PER POLICY ORDER FOR LAB POTASSIUM PLACED. AKASH FROM LAB AWARE AND TO COME DRAW LAB.
--- NOTE | 2021-07-02 22:15 | NUR ---
PRN NAUSEA MEDICATION GIVEN, SEE EMAR. VERIFIFED MED AND DOSE WITH SECOND RN ADDIE. IV SITE WNL BOTH PRIOR AND POST MED ADMINISTRATION, MED GIVEN PER POLICY. pt UP TO VOID AND BACK TO BED. CALL LIGHT IN REACH.
--- NOTE | 2021-07-02 23:27 | NUR ---
PRN PAIN MEDICATION GIVEN FOR 7/10 PAIN. pt REPORTS NAUSEA RESOLVED. ICE PACK IN REACH ALONG WITH OTHER BELONGINGS. REMAINS IN ROOM. pt AND BOTH EDUCATED ON EFFECTS OF BOTH PHENERGAN AND DILAUDID. BOTH VERBALIZED UNDERSTANDING. CALL LIGHT IN REACH.
--- NOTE | 2021-07-03 00:05 | NUR ---
ROUNDED ON pt, pt REPORTS IMPROVED PAIN, NOW RATES 4/10. SPO2 97% ON RA, DENIES NEEDS OR CONCERNS. CALL LIGHT IN REACH.
--- NOTE | 2021-07-03 00:35 | NUR ---
ROUNDED ON pt, pt RESTING IN BED WITH EYES CLOSED AND RR EVEN AND UNLABORED. ON RA, NO DISTRESS NOTED. WHILE ROUNDING, pt AWOKE BUT DENEIS NEEDS OR CONCERNS. CALL LIGHT IN REACH. ALSO REMAINS IN ROOM.
--- NOTE | 2021-07-03 00:54 | NUR ---
PATIENT RESTING WITH NO SIGNS OF DISTRESS.
--- NOTE | 2021-07-03 03:05 | NUR ---
ASSESSMENT COMPLETE, NO ACUTE CHANGES. pt AWOKE TO VOICE, RR EVEN AND UNLABORED. REPORTS PAIN TOLERABLE 4/10. DENIES NEED FOR PAIN AND NAUSEA MEDICATION. NEW BAG IV FLUIDS INFUSING DIRECTED, IV SITE WNL. NO FURTHER NEEDS, CALL LIGHT IN REACH. SCD'S ON AND IN ROOM.
--- NOTE | 2021-07-03 04:58 | NUR ---
pt RESTING IN BED, EYES CLOSED. RR EVEN AND UNLABORED. NO DISTRESS NOTED. CALL LIGHT IN REACH. IN ROOM.
--- NOTE | 2021-07-03 06:45 | NUR ---
IN TO GET VITALS, PT TALKITVE THIS MORNING AND LAUGHES WITH THIS ZYGLO TECHNICIAN AFTER C/O NAUSA/PAIN, SBA TO THE TOILET WITH IV POLE, ICE CHIPS PROVIDED, RN IN TO CHECK ON PT, NO FURTHER NEEDS AT THIS TIME
--- NOTE | 2021-07-03 07:04 | NUR ---
pt REPORTS 7.5/10 PAIN, PRN PAIN MEDICATION GIVEN. MED AND DOSE VERIFIED WITH SECOND RN DAGO. pT REPORTS FEELING INCREASED ABD DISTENTION. ABD DOES APPEAR MORE DISTENDED COMPARED TO PREVIOUS SHIFT, pt REPORTS PASSING GAS DURING THE NIGHT. WILL MONITOR. CALL LIGHT IN REACH.
--- NOTE | 2021-07-03 07:26 | NUR ---
REASSED pt PAIN, pt AWAKE AND PLAYING ON PHONE AND WATCHING TV IN BED, pt REPORTS PAIN IMPROVED AND IS "WAITING LIKE 5-10 MINUTES TO SEE IF IT KICKS IN MORE". DENIES FURTEHR NEEDS, RR EVEN AND UNLABORED. WILL MONITOR. CALL LIGHT IN REACH.
--- NOTE | 2021-07-03 07:45 | NUR ---
CAROLINA. REPORT FROM NIGHT RN, PT. AWAKE AND LYING IN BED, S/O AT BEDSIDE, C/O SOME LINGERING ABDOMINAL PAIN AFTER PRN MED, PLAN TO GIVE SECOND DOSE, ASSUMED ALL CARE OF PT.
--- NOTE | 2021-07-03 08:16 | NUR ---
PT. C/O INCREASED ABDOMINAL PAIN/NAUSEA/BLOATING THE LAST 12 HOURS WITH PRN MED USAGE. 2 LOOSE, OILY, YELLOW BM 07/02, FLATUS THIS AM, TOLERATING SMALL AMOUNT OF ICE CHIPS BUT NOT WANTING TO TAKE CL THIS AM. SHE HAD CL FOR THE FIRST TIME YESTERDAY AND FEELS THIS MAY HAVE NOT BEEN TOLERATED. BOWEL SOUNDS ACTIVE ALL 4 QUADRANTS, RECOMMENDED TO WALK A LITTLE TODAY TO SEE HOW THAT CHANLLENGES HER BODY SYSTEM. SHE AMBULATES TO THE BR INDEPENDENTLY BUT NOT WALKING OUT OF THE ROOM.
--- NOTE | 2021-07-03 09:14 | NUR ---
Call light answered, IV pump alarming, resolved. Pt ambulates to to void. She states no needs at this time, reports taking very little clear liquids- ice chips and small sips of water d/t nausea and pain throughout night. Denies PRN meds now.
--- NOTE | 2021-07-03 11:20 | NUR ---
RESTING IN BED, PAIN IN GOOD CONTROL WITH PRN DILAUDID 1 MG IV, ZOFRAN BEING GIVEN PRN FOR NAUSEA. FAMILY AT BEDSIDE. PT. IS UP INDEPENDENTLY TO BR QS URINE OUTPUT, BM'S YESTERDAY. BS ACTIVE ALL QUADS THIS MORNING, VITALS STABLE FOR HER, ORTHOSTATICS NEGATIVE.
--- NOTE | 2021-07-03 17:00 | NUR ---
SUMMARY NOTE: AMBULATED IN THE ROOM TODAY, DID NOT WANT TO WALK OUT IN THE HALLS TODAY SECONDARY TO ABDOMEN DISCOMFORT, PAIN MANAGED WELL WITH PRN DILAUDID 1 MG IV AND ZOFRAN IV FOR NAUSEA. ONLY TOOK IN ABOUT A TEASPOON OF CL TODAY, SHE DID NOT WANT TO CHALLENGE HER BELLY TODAY. ALL VSS, ORTHOSTATICS NEGATIVE, B/P PULSE SOFT, LABS REVIEWED, ROUNDED AND SOLUMEDROL ADDED IV. ACTIVE BS ALL QUADS, SOME FLATUS, VISITS WITH FAMILY TODAY.
--- NOTE | 2021-07-03 19:25 | NUR ---
SHIFT REPORT RECEIVED FROM DAYSHIFT RN IRAIS AT BEDSIDE. pt AWAKE AND RESTING IN BED, UPSET AND CRYING NOTED. FAMILY IN ROOM AND REPORTS pt UPSET REGARDING VISITOR POLICY, FAMILY AND pt BOTH UPDATED ON NEWEST VERSION OF POLICY AND THAT 2 VISITORS ARE ALLOWED AND CAN BE ROTATED. THERAPEUTIC COMMUNICATION ALSO PROVIDED. IV SITE WNL, IV FLUIDS AND POTASSIUM RIDER BOTH INFUSING- WILL MONITOR. NO ADDITIONAL NEEDS OR CONCERNS VERBALIZED, BOARD UPDATED.
--- NOTE | 2021-07-03 19:56 | NUR ---
REASSESSED pt, pt AWAKE AND SKYPING WITH FAMILY/FRIEND VIA PHONE. 2 VISITORS ALSO ARE IN ROOM WITH pt. NO FURTHER NEEDS, CALL LIGHT IN REACH.
--- NOTE | 2021-07-03 20:51 | NUR ---
PATIENT ASKED MED FOR NAUSEA. PRIMARY RN CHEYENNE NOTIFIED.
--- NOTE | 2021-07-03 21:15 | NUR ---
IN ROOM pt REPORTS HAVING NAUSEA, WHEN IN ROOM pt ALSO REPORTS 20G IV TO RIGHT AC HURTS. SITE ASSESSED, SCANT BLOOD RETURN NOTED. DOCK OPERATIONS SUPERVISOR LADONNA IN ROOM TO ALSO ASSESS, WHEN FLUSHED AGAIN, pt GRIMACES AND REPORTS THAT SHE FEELS "KNOTS ABOVE THE IV". NO KNOTS OR HARDNESS NOTED. IV SITE DC'S CATHETER TIP INTACT.
--- NOTE | 2021-07-03 21:47 | NUR ---
NEW IV, 22G TO LEFT AC PLACED BY THIS RN ON FIRST ATTEMPT. BRISK BLOOD RETURN NOTED, pt TOLERATED POORLY AND YELLED OUT. pt VERY ANXIOUS OF NEEDLES PER pt AND AT BEDSIDE. IV SITE WNL AND FLUSHES EASILY, BRISK BLOOD RETURN REMAINS NOTED. PRN PHENERGAN GIVEN, pt REPORTS PAIN D/T LOCATION OF CATHETER HUB AND pt IS UNABLE TO BEND ARM, DENIES PAIN WHEN FLUSHED WITH SALINE AND DENIES PAIN ABOVE INFUSION SITE. RN REMAINS IN ROOM WITH pt AND PRN NASUEA MED GIVEN, SEE EMAR. PRN PHENERGAN GIVEN PER POLICY AND GIVEN OVER 12 MINUTES WITH NS INFUSING CONCURRENTLY. HOUSE FLOAT RN TO ATTEMPT NEW IV ONCE AVAILABLE pt REPORTS INABILITY TO BEND ARM AND IS ANXIOUS REGARDING PLACEMENT OF NEW IV STATING, "I JUST WANT TO GET BETTER, I'M TIRED OF BEING HERE". WITH pt AND PROVIDING REASSURANCE.
--- NOTE | 2021-07-03 22:20 | NUR ---
HOUSE AREN MILLAN IN ROOM TO ATTEMPT NEW IV PER pt REQUEST AND COLLECT POTASSIUM LAB. PER POLICY POTASSIUM DRAW COLLECTED AND SENT TO LAB. IV FLUIDS RESUMED VIA NEW IV SITE IN RIGHT WRIST. BRISK BLOOD RETURN NOTED. pt UP TO VOID, NO FURTHER NEEDS. CALL LIGHT IN REACH.
--- NOTE | 2021-07-03 22:45 | NUR ---
this rn documented in the vascular access section as removing right ac iv, however removed the left AC iv tip intact that was freshly placed by other RN due to patient reporting it to be uncomfortable.
--- NOTE | 2021-07-03 22:53 | NUR ---
PRN PAIN MEDICATION GIVEN FOR 8/0 PAIN, IV SITE WNL. RT PREMA IN ROOM TO GIVE PRN BREATHING TREATMENT. CALL LIGHT IN REACH.
--- NOTE | 2021-07-03 23:53 | NUR ---
ROUNDED AGAIN ON pt, pt AWAKE AND RESTING IN BED. DENIES NEEDS OR CONCERNS, REPORTS PAIN IMPROVED. CALL LIGHT IN REACH AND WILFREDO IN ROOM.
--- NOTE | 2021-07-04 | NUR ---
IV FLUIDS TITRATED BACK TO ORDERED RATE OF 100MLS/HR, K-RIDER COMPLETE.
--- NOTE | 2021-07-04 02:45 | NUR ---
pt RESTING IN BED WITH EYES CLOSED, RR EVEN AND UNLABORED. NO DISTRESS NOTED, AWOKE BRIEFLY THEN RETURNED TO SLEEP. IV SITE WNL, FLUIDS INFUSING DIRECTED. CALL LIGHT IN REACH.
--- NOTE | 2021-07-04 04:20 | NUR ---
ROUNDED ON pt, pt RESTING QUIETLY IN BED. AWOKE WITH ASSESSMENT BRIEFLY THEN RETURNED TO SLEEP. BOWEL TONES ACTIVE, NO INCREASE IN ABD DISTENTION NOTED. IV SITE WNL, FLUIDS INFUSING DIRECTED. CALL LIGHT IN REACH.
--- NOTE | 2021-07-04 06:32 | NUR ---
VSS AND I&O'S COMPLETE. PRN PAIN AND NAUSEA MEDICATION GIVEN, SEE EMAR. IV SITE WNL, BLOOD RETURN NOTED. NO FURTHER NEEDS, CALL LIGHT IN REACH.
--- NOTE | 2021-07-04 07:15 | NUR ---
Report recieved from Carla PENA. Pt awake and alert. Pt states no pain or nausea at this time. IV WNL. no needs at this time. call light in reach, will continue plan of care.
--- NOTE | 2021-07-04 08:21 | NUR ---
This RN supervising SN Galileo Wood with all patient interactions, medication administration
--- NOTE | 2021-07-04 08:28 | NUR ---
In pt room to administer scheduled medications. pt a+O pt states 4/10 pain. HRR, LSC, Active Bowel tones. abdomen soft and tender. pt ambulates IND to bathroom. Pt provided clear liquids. no futher needs at this time. call light in reach.
--- NOTE | 2021-07-04 09:56 | NUR ---
PATIENT IN BED RESTING AT THIS TIME. VISITOR IN ROOM. VITALS AND I&O'S CHARTED. PATIENT REQUESTING PAIN MEDS, RN NOTIFIED. CALL LIGHT IN REACH. NO FURTHER NEEDS AT THIS TIME.
--- NOTE | 2021-07-04 10:01 | NUR ---
Pt states that she recently found that her maternal family has a history of Crohns and she would like it noted in the chart.
--- NOTE | 2021-07-04 10:06 | NUR ---
Pt requests PRN pain medication, PRN dilaudid administered. She reports mild nausea but denies need for PRN at this time. IVF infusing WNL. Pt A+O, calm, resting in bed. No further needs, her call light in reach.
--- NOTE | 2021-07-04 10:30 | NUR ---
I was able to meet with Carlos today and discuss her care while here in the hospital. Carlos shares that her care has been "pretty good" She also shares that it is very hard to be here in the hospital as she has 2 small children and want to be home with her children. She stated that "Alicia, the night nurse was very helpful" when she had her 'meltdown' last night. She feels that the staff members are doing a good job controlling her pain, and are timely when answering her call light. She also verbalized that the staff members have been explaining her medications to her. She denies further questions or concerns at this time.
--- NOTE | 2021-07-04 12:34 | NUR ---
Rounded on pt, resting in bed. family at beside. call light in reach, no futher needs identified at this time.
--- NOTE | 2021-07-04 13:55 | NUR ---
In pt room to administer PRN dilaudid, pt states 7/10 pain. pt interacting with family and staff. pt tolerating minimal clear liquids. extensive education and counciling reagarding, medications, diet, and self care. no further needs at this time. call light in reach. will continue plan of care.
--- NOTE | 2021-07-04 14:11 | NUR ---
PATIENT IN BED, VISITORS IN ROOM. VITALS AND I&O'S CHARTED. CALL LIGHT IN REACH. NO FURTHER NEEDS AT THIS TIME.
--- NOTE | 2021-07-04 14:14 | NUR ---
PT ALERT, ORIENTED AND HAS FAMILY IN RM. EVERYONE ON PHONE WHEN I ENTERED, PT PUT HER'S DOWN AND BEGAN TO SHARE SHE IS FEELING BETTER. SEEMS SOMEWHAT MORE AT EASE WITH DIAGNOSIS OF CHRONS. WORKING TO KEEP CLEAR LIQUIDS DOWN. HAD GOOD VISIT, GAVE ENCOURAGEMENT AND BLESSING. LEFT G.POST AND WILL FOLLOW
--- NOTE | 2021-07-04 15:43 | NUR ---
Rounded on pt, resting in bed. family in room, no needs identified at this time. will continue plan of care.
--- NOTE | 2021-07-04 18:06 | NUR ---
In pt room to round on pt. Pt request PRN dilaudid and Promethazine, states 7/10 pain. pt conversational with nurses, family, and person on phone. breathing equal and unlabored, no other needs at this time. call light in reach, will continue plan of care.
--- NOTE | 2021-07-04 18:46 | NUR ---
PATIENT SITTING UP IN BED, VISITORS IN ROOM. VITALS AND I&O'S CHARTED. CALL LIGHT IN REACH. NO FURTHER NEEDS AT THIS TIME.
--- NOTE | 2021-07-04 19:20 | NUR ---
REPORT RECEIVED FROM DAY SHIFT RN. PT LYING IN BED ALERT AND ORIENTED. DAY SHIFT NURSE PROVIDING PAIN MEDICATION. NO FURTHER NEEDS AT THIS TIME. CALL LIGHT IN REACH.
--- NOTE | 2021-07-04 21:40 | NUR ---
EVENING ASSESSMENT COMPLETE. PT REPORTS ABD PAIN TOLERABLE AT 3/10. DENIES NAUSEA AT THIS TIME. REPORTS INCREASE NAUSEA AFTER EATING/DRINKING. CLEAR LIQUIDS AT BEDSIDE. BOWEL TONES ACTIVE. ABD SOFT. IVF INFUSING WNL. PT USING IS. PT ENCOURAGED TO AMB, REFUSED SHE IS "TOO DIZZY" AND "JUST NEEDS TO SLEEP." EDUCATION PROVIDED. PT AGREED TO TRY LATER. SCD'S PLACED. S/O IN ROOM. NO FURTHER NEEDS AT THIS TIME. CALL LIGHT IN REACH.
--- NOTE | 2021-07-05 00:25 | NUR ---
PT RESTING IN BED WITH EYES CLOSED. RESPIRATIONS EVEN. CALL LIGHT IN REACH.
--- NOTE | 2021-07-05 03:11 | NUR ---
ROUNDING ON PT. PT AWAKENS WHEN DOOR OPENS. REPORTS ABD PAIN 7/10 AND NAUSEA. PRN FOR PAIN AND N/V ADMIN PER EMAR. SBA TO BR TO VOID 200 ML YELLOW URINE. BACK TO BED, SHOSHANA WELL. ASSESSMENT COMPLETE. WARM COMPRESS PROVIDED FOR ABD. PT DENIES FURTHER NEEDS. CALL LIGHT IN REACH.
--- NOTE | 2021-07-05 04:26 | NUR ---
IV PUMP ALARMING. NEW BAG IVF INFUSING WNL. PT REPORTS PAIN AND NAUSEA IMPROVED AFTER PRN ADMIN. DENIES NEEDS. CALL LIGHT IN REACH.
--- NOTE | 2021-07-05 06:49 | NUR ---
VS AND I&O COMPLETE. PT REPORTS RIGHT SIDE INTERTERMITTENT "STABBING" ABD PAIN 09/11. PRN FOR PAIN ADMIN PER EMAR. PT REPORTS NAUSEA TOLERABLE. PT REPORTS FLATUS. PT CONTINUES SIPPING ON CLEAR LIQUID ENSURE. FRESH ICE CHIPS PROVIDED. NO FURTHER NEEDS.
--- NOTE | 2021-07-05 07:30 | NUR ---
Report recieved from Julia PENA. pt resting in bed, family in room. pt A + O, call light in reach, no needs identified at this time.
--- NOTE | 2021-07-05 08:15 | NUR ---
In pt room to administer PRN zofran, pt crying and states "feeling so sick". Scheduled meds given assessment complete. Pt state resolved nausea, after medication administration. Pt conversational with staff and family. Pt agreeable with plan of care. call light in reach.
--- NOTE | 2021-07-05 09:28 | NUR ---
PATIENT AMBULATED 1 1/2 LAPS IN [facility]. PATIENT NOW BACK TO BED, VISITOR IN ROOM. PATIENT NOW REQUESTING PAIN MEDS, RN NOTIFIED. CALL LIGHT IN REACH. NO FURTHER NEEDS AT THIS TIME.
--- NOTE | 2021-07-05 09:35 | NUR ---
Pt medicated with 0.8mg of dilaudid for pain. Pt ambulated in hallway 1.5 laps and had small BM. She begins to try full liquid diet.
--- NOTE | 2021-07-05 11:00 | NUR ---
Rounded on pt, resting in bed, family in room. no needs identified at this time .
--- NOTE | 2021-07-05 11:15 | NUR ---
Spoke with Carlos. She states she will return home. She does not have a pcp as she has moved. Dr. Sommer also stopped by my office this am and requested I send her chart to Gastro at [facility] in [place]. I called and spoke with their office and faxed her chart and a referral. Pt states she has a new diagnosis of Crohns. She would like to speak geothermal operations manager as she has been reading about Crohns. I asked her RN to enter order for geothermal operations manager. I will call [facility] for a pcp as pt has been seen at their walk in clinic multiple times. Will follow up with this pt tomorrow.
--- NOTE | 2021-07-05 12:30 | NUR ---
Rounded on pt., family in room helping with lunch. no needs at this time. call light in reach.
--- NOTE | 2021-07-05 14:32 | NUR ---
In room, assessment complete. pt resting in bed, using phone. pt states no pain at this time. HRR, LSC on room air. Bowel tones active, tolerating diet, mutiple small BMs. CMS intact, skin warm. No further needs, call light in reach. Will continue POC.
--- NOTE | 2021-07-05 16:48 | NUR ---
Pt ambulating in hallway with S.O. She is A+O, on room air, ambulating well, conversational with nurses. She requests PRN phenergan d/t ongoing nausea.
--- NOTE | 2021-07-05 17:09 | NUR ---
Pt medicated with 0.5 mg of dilaudid, and 12.5 mg phenergan for 5/10 abd pain after walking in hallway. IV dressing changed as becoming loose- site intact and infusing WNL. Dinner of full liquids delivered. Pt significant other in room, attentive to patient. Pt talkative with staff. Destiny PENA with CM in room and assists patient with followup appointments.
--- NOTE | 2021-07-05 19:41 | NUR ---
REPORT RECEIVED FROM DAY SHIFT RN. PT LYING IN BED ALERT AND ORIENTED. IVF INFUSING WNL. DENIES NEEDS AT THIS TIME. WHITE BOARD UPDATED. CALL LIGHT IN REACH.
--- NOTE | 2021-07-05 22:30 | NUR ---
PT RESTING WITH EYES CLOSED UPON ENTERING ROOM. AWAKENED FOR ASSESSMENT. PT REPORTS ABD PAIN 7/10 AND NAUSEA. PRN FOR PAIN AND N/V ADMIN PER EMAR. PT UP TO BR TO VOID WITH MINIMAL ASSIST. GAIT STEADY. BACK TO BED. VS AND I&O COMPLETE. ABD SOFT AND MILDLY DISTENDED. BOWEL TONES ACTIVE. PT REPORTS FLATUS. SCD'S IN PLACE. FRESH ICE WATER PROVIDED. IVF INFUSING WNL. PT DENIES QUESTIONS OR CONCERNS. CALL LIGHT IN REACH.
--- NOTE | 2021-07-06 00:30 | NUR ---
PT RESTING IN BED WITH EYES CLOSED. RESPIRATIONS EVEN. S/O ON COUCH RESTING. CALL LIGHT IN REACH.
--- NOTE | 2021-07-06 03:28 | NUR ---
PT RESTING IN BED WITH EYES CLOSED. RESPIRATIONS EVEN. CALL LIGHT IN REACH.
--- NOTE | 2021-07-06 04:49 | NUR ---
PT AWAKE IN BED. REPORTS ABD PAIN 7/10 AND NAUSEA. PRN FOR PAIN AND NAUSEA ADMIN PER EMAR. NEW BAG IVF INFUSING WNL. PT REPORTS FLATUS. BOWEL TONES ACTIVE. ABD SOFT. FRESH ICE WATER AND WARM COMPRESS PROVIDED. SCD'S IN PLACE. NO FURTHER NEEDS. CALL LIGHT IN REACH. FAMILY REMAINS IN ROOM.
--- NOTE | 2021-07-06 06:30 | NUR ---
PT RESTING IN BED WITH EYES CLOSED. RESPIRATIONS EVEN. CALL LIGHT IN REACH.
--- NOTE | 2021-07-06 08:15 | NUR ---
REPORT RECEIVED FROM NIGHT RN AND PT CARE RESUMED. PT. IS ALERT AND ORIENTED. SHE C/O MILD PAIN IN RIGHT ABDOMEN. BOWEL TONES RARE THROUGHOUT. PT REPORTS PASSING GAS AND HAVING A BM OVERNIGHT. SKIN INTACT. IV WNL AND FLUSHES. PT. LEFT RESTING WITH AT BEDSIDE.
--- NOTE | 2021-07-06 10:15 | NUR ---
PT. C/O ABDOMINAL PAIN AFTER WALKIING AND NAUSEA. ADMIN ZOFRAN AND DILAUDID. PT. BROUGHT HEAT PACK. LEFT RESTING WITH CALL LIGHT IN REACH.
--- NOTE | 2021-07-06 10:22 | NUR ---
PATIENT WITH A NEW DX OF CHRON'S DISEASE. PATIENT IN BED WATCHING TV. HER IS IN THE ROOM. HE SAID HIS MOM WAS DX'D WITH CROHN'S BUT THEN 20 YEARS LATER FOUND OUT IT WAS H. PYLORI. OVER TIME SHE FIGURED OUT WHAT FOODS BOTHERED HER. PATIENT STATES SHE IS BASICALLY LACTOSE INTOLERANT AND HAS BEEN FOR A LONG TIME. SHE DRINKS REGULAR MILK AND CAN TOLERATE SOME YOGURTS, CANNOT TOLERATE YORUBA YOGURT, CAN TOLERATE SMALL AMOUNTS OF CERTAIN CHEESES. SHE WOULD LIKE ALMOND MILK WHILE HERE. SHE CANNOT TOLERATE POTATOES OF ANY KIND EITHER AND HAS AN ALLERGY TO TOMATOES. ALL OF THESE ARE NOTED IN THE KITCHEN. PROVIDED PATIENT A HANDOUT ON NUTRITION THERAPY FOR IRRITIABLE BOWEL DISEASE WHICH INCLUDES CHRON'S. EXPLAINED TO KEEP HER DIET LOW IN FIBER UNTIL SHE IS FEELING BETTER. THEN SHE CAN ADD 1 NEW FOOD IN EVERY FEW DAYS TO SEE IF SHE CAN TOLERATE IT. SHE MENTIONED KEEPING A FOOD/SYMPTOM JOURNAL TO IDENTITY PROBLEM FOODS AND I SAID THAT IS A GREAT IDEA. LIST OF FOODS RECOMMENDED WHILE HAVING SYMPTOMS PROVIDED. I REMINDED HER TO CONSUME PROTEIN THROUGHOUT THE DAY TO MEET HER PROTEIN NEEDS. SHE APPRECIATED MY TIME. SHE UNDERSTANDS THAT SHE WILL NEED TO BE PATIENT WITH FIGURING OUT WHAT FOODS WORK FOR HER AND WHAT FOODS DON'T. SHE MAY TOLERATE SMALL AMOUNTS OF CERTAIN THINGS LIKE CAULIFLOWER OR BROCCOLI INSTEAD OF A LARGE AMOUNT WHEN SHE IS FEELING BETTER. SHE HAS GOOD UNDERSTANDING. MY NAME AND OFFICE # PROVIDED IN CASE FURTHER QUESTIONS ARISE.
--- NOTE | 2021-07-06 10:43 | NUR ---
Spoke with Carlos, she is walking in the rodrigez with her boyfriend. States she is very tender, but it feels good to get out of the room.
--- NOTE | 2021-07-06 13:11 | NUR ---
PT. IS RESTING WITH EYES CLOSED. SHE DENIES PAIN AND REPORTS NAUSEA IS IMPROVED. LEFT RESTING WITH AT BEDSIDE.
--- NOTE | 2021-07-06 14:10 | NUR ---
PT ASLEEP, DID NOT DISTUTB. WILL CHECK BACK
--- NOTE | 2021-07-06 17:39 | NUR ---
PT. C/O ABDOMNINAL PAIN AND NAUSEA WHILE EATING APPLE SAUCE. ADMIN. CAROL ANN AND RACHEL. PT. BROUGHT CLEAR ENSURE PER REQUEST. LEFT RESTING WITH CALL LIGHT IN REACH.
--- NOTE | 2021-07-06 19:25 | NUR ---
RECEIVED REPORT TEMPERARILY ANIMAL SITTER WHILE PRIMARY RN IS ON HER WAY.
--- NOTE | 2021-07-06 20:43 | NUR ---
IN ROOM TO CHECK ON PT, SHE REPORTS PAIN AT 4/10 AFTER TAKING THE NORCO. SHE STATES PAIN IS TOLERABLE AT THIS TIME. SHE WAS ABLE TO EAT ABOUT 20% OF HER DINNER. IV IS INFUSING FINE, PT REPORTS ABD TENDERNESS. SHE DENIES N/T, SOB. PT STATES SHE HAS A LITTE NAUSEA BUT THE ZOFRAN HELPED. PT STATES SHE MIGHT WANT TO SHOWER TONIGHT. TOLD HER TO CALL WHEN SHE IS READY. PT DENIES FURTHER NEEDS. CALL LIGHT IS CLOSE.
--- NOTE | 2021-07-06 21:10 | NUR ---
REPORT GIVEN TO ADDIE Berry RN.
--- NOTE | 2021-07-06 21:20 | NUR ---
IN TO GET VITALS, I&Os DONE, WARM PACK PROVIDED, PT C/O SOME ANXITIY AFTER HAVING A PAIN MEDICATION EARLIER, RN INFORMED, NO FURTHER NEEDS AT THIS MOJGAN
--- NOTE | 2021-07-06 22:40 | NUR ---
IV PHENERGAN INFUSING CONCURRENTLY WITH IVF. INSTRUCTED PT TO USE CALL LIGHT IF SHE FELT BURNING. STAYED IN ROOM FOR 6 MINUTES AFTER INFUSION STARTED. PT DENIES ANY ISSUES I WAS LEAVING.
--- NOTE | 2021-07-06 22:55 | NUR ---
IV PUMP ALARMING. THIS RN IN ROOM TO ASSESS. LINE B COMPLETE, pt REPORTS RECENTLY GETTING PRN PHENERGAN. pt APPEARS ANXIOUS AND FOUND RESTING IN BED, pt REPORTS PAIN/NUMBNESS AT IV SITE, STATING, "I CAN'T FEEL AROUND HERE", pt POINTING TO ABOVE IV INSERTION SITE. NO REDDNESS NOTED, LINE A IV FLUIDS STOPPED IMMEDIATELY AND PRIMARY RN ADDIE FOUND IN HALLWAY AND NOW IN ROOM TO FURTHER ASSESS SITE.
--- NOTE | 2021-07-06 23:48 | NUR ---
PT STATES RFA FEELS "NUMB" SPOT ABOVE IV SITE. WARM PACK WAS APPLIED FOR APPROX 20 MIN. PT STATES NO REAL CHANGE. PT STATES SHE WILL NOT ALLOW FOR ANOTHER IV TO BE STARTED DECREASED RATE TO TKO AND MONITORED. PT STILL FEELS THAT THERE IS SOME NUMBESS TO A SPOT OF HER ARM AVOVE IV SITE. DOES NOT WANT TO TAKE PO PAIN MED TONIGHT SHE FEELS IT MAKES HER RESTLESS AND SHE STATES SHE HAS BEEN TRYING TO SLEEP SINCE THIS AFTERNOON. IV DILAUDID GIVEN WITHOUT AN ISSUE. PT DENIES ANY NEEDS.
--- NOTE | 2021-07-07 00:31 | NUR ---
SLIGHT SWELLING NOTED TO RFA. IVF STOPPED. CHARGE AWARE AND CALL PCC WHO STATES SHE WILL TRY TO COME START IV.
--- NOTE | 2021-07-07 01:00 | NUR ---
IN TO START NEW IV AT REQUEST OF MANAGEMENT SERVICES TECHNICIAN. PT AWAKE IN BED WITH BOYFRIEND IN ROOM. 20# STARTED IN LEFT HAND ATTEMPT X1. PT THEN BEGINS TALKING ABOUT THE IV SITE THAT SHE HAD ON THE RIGHT WRIST THAT WAS DC'D BY PRIMARY RN. SHE REPORTS FEELING BURNING WITH ADMINISTRATION OF IV PHENERGAN. AREA AROUND IV SITE IS NOTICEABLY SWOLLEN APPROX TENNIS BALL SIZED AREA AND SKIN AROUND THIS AREA IS PALE. PT STATES THAT THIS ENTIRE AREA IS NUMB. ARM ELEVATED UP ON PILLOWS AND HEAT PACK APPLIED, WILL MONITOR CLOSELY.
--- NOTE | 2021-07-07 02:05 | NUR ---
8MG IV ZOFRAN GIVEN, PT REPORTS FEELING NO RELIEF FROM PHENERGAN GIVEN EARLIER.
--- NOTE | 2021-07-07 02:15 | NUR ---
TOOK OVER CARE OF PT AT THIS TIME.
--- NOTE | 2021-07-07 02:52 | NUR ---
IN ROOM TO CHECK ON PT, SHE IS AWAKE IN BED WITH SIG OTHER IN THE ROOM. PT'S RFA HAS SOME SWELLING IT IS SLIGHTLY PINK AND ELEVATED ON A PILLOW. SHE HAS AN ICEPACK IN PLACE THAT [facility] AFTER SHE STARTED A NEW IV. THE NEW IV FLUSHED FINE. ADMINISTERED IV DILUADID 1MG DILUTED SLOWPUSH. PT EXPLAINED THE ALL THE INCIDENTS SHE HAS HAD IN THE LAST WEEK SINCE SHE BECAME ILL. BT ARE ACTIVE PT IS PASSING GAS. SHE IS VOIDING URINE FINE. IV IS INFUSING FINE. ICE PROVIDED AND PT DENIES FURTHER NEEDS. CALL LIGHT IS CLOSE.
--- NOTE | 2021-07-07 03:50 | NUR ---
PT CALLED STATING HER PAIN DECREASED SOME BUT IS STILL 6/10. ADMINISTERED THE REST OF THE PRN DILUADID 0.5 MG IV DILUTED. ADVISED PT THAT SHE CAN HAVE THE 1.5MG DOSE IN 2 HOURS. PT CANNOT TOLERATE THE PO NORCO AND IS ONLY USING THE DILUADID TO HOLD HER OVER NIGHT UNTIL WE CAN ASK ABOUT CHANGING HER PO PAIN MEDS. PT HAS WARM BACK TO R FOREARM AND IT IS ELEVATED ON PILLOW. NO REDNESS NOTED AND SWELLING IS DECREASING.
--- NOTE | 2021-07-07 05:40 | NUR ---
PT IS RESTING WITH EYES CLOSED, RR IS EVEN AND UNLABORED. CALL LIGHT IS CLOSE AND IV IS INFUSING FINE.
--- NOTE | 2021-07-07 06:17 | NUR ---
IN ROOM TO ADMINISTER IV DILAUDID 1.5MG DILUTED SLOW PUSH FOR 8. SHE ASK FOR PHENERGAN FOR NAUSEA, ADVISED PT IT IS NOT SAFE TO PUT THROUGH HAND IV. PT STATES UNDERSTANDING AND WILL WAIT FOR ZOFRAN. PT DENIES FURTHER NEEDS, CALL LIGHT IS CLOSE.
--- NOTE | 2021-07-07 08:28 | NUR ---
PT RESTING QUIETLY IN BED, AWAKENS EASILY. STATES RESTING COMFORTABLE, DENIES NEEDS AT THIS TIME. CALL LIGHT WITHIN REACH.
--- NOTE | 2021-07-07 10:36 | NUR ---
PT CALLED C/O NAUSEA AND VOMITTING. ALL MEDICATIONS FOR NAUSEA ORAL, SUGGESTED AND PROVIDED EDUCATION ON ODT ZOFRAN, PT INITALLY REFUSED. PT REQUESTING IV NAUSEA MEDICATIONS. MESSAGE LEFT FOR DR KNOX TO INFORM OF NAUSEA/VOMITTING, INCREASED PAIN. AFTER EDUCATING ABOUT ODT ZOFRAN X3 PT OPEN TO ATTEMPTING ODT ZOFRAN. ODT ZOFRAN GIVEN.
--- NOTE | 2021-07-07 11:52 | NUR ---
PT STATES NAUSEA HAS IMPROVED, NO LONGER VOMITTING, C/O ABD PAIN / THAT HAD INCREASED FROM VOMITTING. SPOKE WITH DR KNOX REGARDING PAIN AND NAUSEA, CONTINUE CURRENT COURSE OF MEDICATIONS. OFFERED TYLENOL OR IBU TO PT, PT REFUSES AT THIS TIME. PT STATES SHE WILL REST, SHOWER AND RECONSIDER LATER. DENIES FURTHER NEEDS AT THIS TIME. CALL LIGHT WITHIN REACH.
--- NOTE | 2021-07-07 14:15 | NUR ---
In to speak with pt. Mother in room. Pt crying and mother very upset. Mother threatening to take pt out and take her to [facility]. Pt crying and stating her iv infiltrated last night and she is upset. She filed a complaint and was told by the nurse the complaint was given to the Dr. She is now upset as medications have been changed from IV to oral and she wants her IV meds. She was not consulted by the Dr. and feels he is getting back at her for making a complaint. Boyfriend arrives making statements he will get a documentation consultant and dianna. I attempted to explain to pt, all patients have to transition from IV meds to oral pain meds. This is part of thee process. Mom then begins to tell boyfriend I am here to discharge the pt. I let them know Maurisio not discharging them, I am just here to check in to see how things are going. Mother cont. to say this and I then asked her to stop putting words in my mouth. Mom then saying they will take Carlos to [place]. I let her know this is their legal right and we can get them an against medical advice form. I again told the mother, I check in with Carlos daily, Maurisio just trying to find out what her needs are and how we can help. Rn arrives and states she has spoken with Dr. Sommer and he is reordering her IV pain meds. and a CT for the am. Rn arrives and states she has spoken
--- NOTE | 2021-07-07 14:30 | NUR ---
IN ROOM TO [facility] ON PT, PT C/O 9/10 PAIN AND NAUSEA. OFFERED ULTRAM FOR PAIN, PT DOES NOT WANT TO TAKE ORAL PAIN MEDICATION WITH FEAR IT WILL CAUSE WORSENING N/V. PT VERY UPSET, STATES SHE WAS UNAWARE OF MEDICATION ROUTE CHANGES FROM IV TO ORAL EXCEPT PAIN MEDICATIONS. STATES ORAL NAUSEA MEDICATION "DOES NOT HELP" PT ALSO THOUGHTS OF LEAVING AMA TO SEEK HELP ELSEWHERE. CLAIMS HE IS THINKING OF "CALLING A LOAN PROCESSOR" PT ALSO STATES SHE IS UPSET SHE HAS NOT HAD FURTHER IMAGING. REQUESTS THIS RN CALLS DR KNOX. DR KNOX INFORMED OF PT C/O PAIN AND NAUSEA, FEAR OF TAKING ORAL MEDICATIONS, AND STATEMENTS REGARDING LEAVING AMA. TELEPHONE ORDERS FOR CT OF ABD/PELVIS FOR 07/08/21 AND IV PAIN AND NAUSEA MEDICATIONS, ORDERS READ BACK AND CONFIRMED.
--- NOTE | 2021-07-07 16:20 | NUR ---
REASSESSMENT PAIN, PT RATES 6/10 AND STATES SHE IS MORE RELAXED AND ATTEMPTING TO RELAX. PT APPEARS COMFORTABLE LAYING IN BED. DENIES FURTHER NEEDS AT THIS TIME. CALL LIGHT WITHIN REACH.
--- NOTE | 2021-07-07 19:10 | NUR ---
SHIFT REPORT RECEIVED FROM DAYSHIFT RN CAROL AND ANDRIY. pt AWAKE AND IN GOOD SPIRITS, WILFREDO IN ROOM EATING PIZZA. pt SMILING AND DENIES NEEDS OR CONCERNS, EXCITED TO SHOW STAFF SHE ATE 100% OF HER APPLESAUCE. CALL LIGHT IN REACH.
--- NOTE | 2021-07-07 20:21 | NUR ---
PT IS AMBULATING IN THE DYE AT THIS TIME WITH SIG. OTHER. SHE DENIES NEEDS. SHE STATES SHE IS DOING BETTER.
--- NOTE | 2021-07-07 20:30 | NUR ---
in to get vitals, pt provided with snack, no further needs at this time
--- NOTE | 2021-07-07 21:05 | NUR ---
assessment complete, no scheduled meds at this time. pt recently medicated by zinc furnace chargeryennifer franklin for reported 5/10 pain, see emar. iv site wnl, fluids infusing as directed. pt awake and resting in bed, jana in room-both in good spirits. pt currently denies nausea, reports abd pain is more so in right lower quadrant. no distress noted. scattered brusies noted from previous iv starts, skin overall intact. fresh water and soft snacks at bedside, discussed poc with pt and pt and both agree. pt left to rest, will call internal corrosion specialist when/if pain or nausea medication is required. will continue to monitor. call light in reach.
--- NOTE | 2021-07-07 21:05 | NUR ---
IN ROOM TO ADMINISTER PAIN MEDS FOR 5/10 PAIN. TALKED WITH PT ABOUT OPTIONS FOR PAIN MEDICATIONS TONIGHT AND THE NEED TO START PO PAIN MEDS. PT STATES SHE HAD NAUSEA EARLIER TODAY AFTER TAKING PO MEDS. PT AGREEABLE TO TAKING IV DILUADID NOW AND AFTER NEXT DOSE OF NAUSEA MEDS TRYING PO PAIN CONTROL AGAIN. WARM PACK PROVIDED AND PT DENIES FURTHER NEEDS. PRIMARY RN CHEYENNE IS NOW IN THE ROOM WITH PT.
--- NOTE | 2021-07-07 22:30 | NUR ---
pt resting queitly in bed wiht eyes closed, on ra. rr even and unlabored. no distress noted. call light in reach.
--- NOTE | 2021-07-08 | NUR ---
call light answered, PT requesting something for pain and nausea, prn zofran unabailable per emar, discussed options with pt, pt very agreeable and wishes to have po phenergan and iv pain medication for reported 6/10 pain, see emar. iv site wnl, blood return noted. no additional needs, snacks remains at bedside. call light in reach.
--- NOTE | 2021-07-08 00:55 | NUR ---
DISCUSSED WITH NÉSTOR FROM IMAGING, PER NÉSTOR pt TO BE NPO FOR ORDERED CT IN AM. pt MADE NPO AT THIS TIME.
--- NOTE | 2021-07-08 01:10 | NUR ---
ROUNDED ON pt, pt NPO AND EDUCATED ON REASINING BEHIND DIET CHANGE, pt VERBALIZED UNDERSTANDING. IV SITE WNL, FLUIDS INFUSING DIRECTED. NO NEEDS OR CONCERNS VERBALIZED. CALL LIGHT IN REACH.
--- NOTE | 2021-07-08 03:22 | NUR ---
in room to round on pt, pt resting in bed with eyes closed. pt on ra, rr even and unlabored. no outward s/sx of pain, nausea, or distress noted. will continue to monitor. sig other jana remains in room, call light in reach. iv site wnl, fluids infusing as directed.
--- NOTE | 2021-07-08 05:09 | NUR ---
pt RESTING IN BED, ON RA. RR EVEN AND UNLABORED. NO FACIAL GRIMACING OR S/SX OF PAIN OR NAUSEA NOTED. CALL LIGHT IN REACH.
--- NOTE | 2021-07-08 06:14 | NUR ---
VSS AND I&O'S COMPLETE. DR KNOX IN ROOM AND UPDATED ON pt DURING THE NIGHT. UPDATED pt ON POC FOR UPCOMING SHIFT. ASSESSMENT COMPLETE, NO ACUTE CHANGES. pt REPORTED FEELING COMFORTABLE WHEN ASKED, NO REPORT OF PAIN OR NAUSEA AT THIS TIME NOR DID pt ASK FOR PAIN/NAUSEA MEDICATION. CALL LIGHT IN REACH, IV SITE INFUSING WNL DIRECTED.
--- NOTE | 2021-07-08 06:57 | NUR ---
SPOKE TO OSMIN FROM IMAGING. PER OSMIN, pt TO GET FIRST DOSE OF ORAL CONTRAST (ORDER ALREADY IN PLACE) THEN WAIT AN HOUR AND RECEIVE SECOND DOSE THEN WAIT ANOTHER HOUR BEFORE CT SCAN.
--- NOTE | 2021-07-08 08:02 | NUR ---
PT C/O 08/12 ABD PAIN. IN TO GIVE GASTROGAFIN FOR CT SCAN. PT CONCERNED ABOUT TOLERATING CONTRAST, ZOFRAN ADMINISTERED. UP TO RESTROOM. PT STATES SHE SLEPT WELL THROUGH THE NIGHT. DENIES FURTHER NEEDS AT THIS TIME. CALL LIGTH WITHIN REACH.
--- NOTE | 2021-07-08 10:03 | NUR ---
PT UNABLE TO COMPLETE SECOND BOTTLE OF GASTROGRAFIN D/T NAUSEA. PER CT, STOP DRINKING, WILL STILL DO IMAGING. PO PHENEGRAN GIVEN FOR NAUSEA. SIHLO FURTHER NEEDS AT THIS TIME. CALL LIGHT WITHIN REACH.
--- NOTE | 2021-07-08 11:08 | NUR ---
PT BACK FROM CT, C/O 08/12, PAIN MEDS GIVEN. DENIES FURTHER NEEDS. CALL LIGHT WITHIN REACH.
--- NOTE | 2021-07-08 11:45 | NUR ---
PT HEADED TO IMAGING, WILL FOLLOW
--- NOTE | 2021-07-08 13:03 | NUR ---
DR KNOX IN ROOM TO UPDATE PT AND FAMILY. PT RESTING QUIETLY IN BED, STATES SHE WAS NOT ABLE TO EAT CHICKEN NOODLE SOUP, FEELING NAUSEOUS YET IT IS TOLERABLE. DENIES FURTHER NEEDS AT THIS TIME. CALL LIGHT WITHIN REACH.
--- NOTE | 2021-07-08 13:39 | NUR ---
PT. CALLS APPROPRIATELY FOR IV BEEPING. FLUIDS CHANGED. PT. ABLE TO STATE POC AND QUESTIONS ANSWERED. LEFT RESTING WITH CALL LIGHT IN REACH.
--- NOTE | 2021-07-08 13:53 | NUR ---
PT IS SITTING UP IN BED WATCHING TV, IN ROOM. I&O AND VS CHARTED CALL LIGHT WITHIN REACH NO FURTHER TASKS AT THIS TIME
--- NOTE | 2021-07-08 16:02 | NUR ---
PT REQUESTING NAUSEA MEDICATION, GIVEN ZOFRAN. STATES PAIN IS 2/10. DENIES FURTHER NEEDS AT THIS TIME.
--- NOTE | 2021-07-08 19:15 | NUR ---
HANDOFF REPORT RECEIVED FROM DAY SHIFT RN.
--- NOTE | 2021-07-08 21:15 | NUR ---
PT STATES SHE WAS UNAWARE THAT SOLUMEDROL DOSE WAS GOING TO BE GIVEN Q6, SHE THOUGHT THE DOSE WAS JUST INCREASING TO 60MG ONCE PER DAY. CALL PLACED TO DR. KNOX TO CLARIFY ORDER, ORDER TO GIVE 60MG Q6 CURRENTLY ORDERED.
--- NOTE | 2021-07-08 21:26 | NUR ---
PT RESTING IN BED, JUST COMPLETED WALKING IN DYE FOR 3 LAPS. PT REQUESTED PAIN MEDICATION FOR 7/10 ABDOMINAL PAIN, GIVEN 1MG IV DILAUDID. PT ALSO REQUESTING PO PHENERGAN FOR NAUSEA, GIVEN. PT ON ROOM AIR, LUNG SOUNDS CLEAR, DENIES SOB. PT WITHOUT EMEISS, ATE SMALL AMOUNT OF APPLE SAUCE AND TOLERATING LIQUIDS WELL. BOWEL TONES ACTIVE RLQ TENDER TO PALPATE. CMS INTACT, WITHOUT EDEMA. DISCUSSED PLAN OF CARE FOR THE EVENING. PT DENIES OTHER NEEDS AT THIS TIME.
--- NOTE | 2021-07-08 23:36 | NUR ---
PT REQUESTING PAIN MEDICATION, RATING PAIN 7/10 TO ABD. GIVEN 1 MG IV DILAUDID. PT DENIES OTHER NEEDS AT THIS TIME.
--- NOTE | 2021-07-09 02:15 | NUR ---
PT CALLED TO REQUEST PAIN MEDICATION AND ANTINAUSEA MEDICATION, GIVEN 1 MG IV DDILAUDID, 8MG IV ZOFRAN, 60MG SOLUMEDROL. PT RPOVIDED WITH FRESH HEAT PACK FOR ABD. PT DENIES OTHER NEEDS AT THIS TIME.
--- NOTE | 2021-07-09 05:42 | NUR ---
CALL LIGHT ON pt REPORTED PAIN 7/10, PRN GIVEN (SEE MAR). pt REPORTED EATING AN APPLE SAUCE, PROVIDED MORE APPLE SAUCE AND ICE CHIPS. VITALS AND I&Os RECORDED. NO FURTHER REQUESTS CALL LIGHT WITHIN REACH.
--- NOTE | 2021-07-09 07:30 | NUR ---
SHIFT REPORT RECEIVED FROM MARKUS PENA. PT RESTING IN BED, EYES CLOSED. RR EVEN, UNLABORED. S.O. IN ROOM. CALL LIGHT IN REACH.
--- NOTE | 2021-07-09 09:00 | NUR ---
ASSESSMENT COMPLETED. SCHEDULED MEDS PROVIDED. PT REPORTS 7/10 ABD PAIN AND NAUSEA, PRN PAIN AND NAUSEA MED PROVIDED. GCS 15, A&O X4. LUNGS CLEAR, HEART TONES REGULAR. ABD SLIGHTLY FIRM, TENDER IN RLQ, PT REPORTS FLATUS, BOWEL TONES ACTIVE. CMS INTACT. IV WNL, CDI, FLUSHED WELL. IV FLUIDS INFUSING PER ORDER. NO OTHER NEEDS AT THIS TIME. CALL LIGHT IN REACH.
--- NOTE | 2021-07-09 11:30 | NUR ---
PT REQUESTS TO SPEAK WITH THIS RN. PT STATES SHE WOULD LIKE TO HAVE THE SURGERY TOMORROW DISCUSSED WITH DR KNOX THIS MORNING. MD AND HOUSE SUPERVISER NOTIFIED.
--- NOTE | 2021-07-09 12:10 | NUR ---
PT REPORTS 7/10 ABD PAIN, PRN PAIN MED PROVIDED. HEAT PACK PROVIDED. NO OTHER NEEDS. CALL LIGHT IN REACH.
--- NOTE | 2021-07-09 13:50 | NUR ---
PT RESTING IN BED. FAMILY IN ROOM. NO NEEDS AT THIS TIME. CALL LIGHT IN REACH.
--- NOTE | 2021-07-09 14:10 | NUR ---
PT REPORTS 7/10 ABD PAIN AND NAUSEA. PRN PAIN MED AND NAUSEA MED PROVIDED. NO OTHER NEEDS. CALL LIGHT IN REACH.
--- NOTE | 2021-07-09 15:30 | NUR ---
PT RESTING IN BED, EYES CLOSED. RR EVEN, UNLABORED. CALL LIGHT IN REACH.
--- NOTE | 2021-07-09 17:08 | NUR ---
PT REPORTS 7/10 ABD PAIN AND NAUSEA, PRN PAIN AND NAUSEA MEDS PROVIDED. ASSESSMENT COMPLETED. ABD FIRM, MILDLY DISTENDED, BOWEL TONES ACTIVE. IV WNL. HEAT PACK PROVIDED. NO OTHER NEEDS. CALL LIGHT IN REACH.
--- NOTE | 2021-07-09 21:00 | NUR ---
t c/o 09/11 RLQ abdominal pain- prn pain medication administered as ordered; see emar. Pt's remains at bedside. Assessment completed. Verbalizes needs appropriately. Call light at hand. Pt w/ concern about "leaking iv" this RN assessed iv site- no signs of infiltration noted. IV site without redness, warmth or edema- pt denies pain/discomfort while iv is being flushed. Dressing changed and ivf infusing per order without noted adverse reaction. Will cont to monitor.
--- NOTE | 2021-07-09 23:57 | NUR ---
Pt resting in bed, watching tv w/ her spouse at her bedside. PRN medication administered for pain and nausea per orders- see emar. Pleasant mood. Verbalizes needs appropriately. IV patent w/ ivf infusing. VSS. Call light within reach. Will cont to monitor.
--- NOTE | 2021-07-10 02:00 | NUR ---
Pt resting in bed with call light at hand. Verbalizes needs appropriately. IVF infusing w/o noted difficulty. VSS. Will cont to monitor.
--- NOTE | 2021-07-10 05:24 | NUR ---
Pt with request for Dilaudid this AM- administered as ordered for 09/11 RLQ pain. Pt's remains at bedside. Pt verbalizes needs appropriately. Call light within reach. Will cont to monior.
--- NOTE | 2021-07-10 07:05 | NUR ---
HANDOFF REPORT RECEIVED FROM STRETCHER DRIER OPERATOR RN.
--- NOTE | 2021-07-10 08:45 | NUR ---
PT RESTING IN BED. PT ON ROOM AIR, LUNG SOUNDS CLEAR. PT RATING PAIN 6/10 AT THIS TIME, DENIES NEED FOR PAIN MEDICATION, PROVIDED WITH WARM PACK. PT NPO FOR SURGERY, BOWEL TONES ACTIVE. CMS INTACT WITHOUT EDEMA, SCDS TO BLE. DR. KNOX TO BEDSIDE, DISCUSSED PLAN FOR SURGERY, CENTRAL LINE AND TPN, CONSENT SIGNED AND WITNESSED.
--- NOTE | 2021-07-10 08:54 | NUR ---
IVF RESUMED AFTER SURGICAL WIPEDOWN.
--- NOTE | 2021-07-10 10:10 | NUR ---
PT TO OR WITH OR NURSE, HANDOFF REPORT GIVEN. LR ON STRIAGHT TUBING WITH FLAGYL AND ANCEF.
--- NOTE | 2021-07-10 13:25 | NUR ---
07/10/21 1325 Rubi Norris 1320-PATIENT ARRIVED TO PACU ON 6L MASK NONAROUSABLE ORAL AIRWAY IN PLACE. RR EVEN. IVF INFUSING. MIDLINE INCISION CDI. IV TYLENOL FINISHED INFUSING. WILL ORDER CHEST XRAY FOR CENTRAL LINE PLACEMENT VERIFICATION. SR.
--- NOTE | 2021-07-10 16:20 | NUR ---
REPORT RECEIVED FROM FRANCISCO PENA. PT RESTINGIN BED. PT COMPLAINT OF NAUSEA, EMESIS, AND PAIN. GIVEN 0.625MG INAPSIN AND 1MG IV DILAUDID PER ORDER. TPN STARTED TO RIGHT IJ. SWELLING NOTED TO IJ INSERTION SITE, VERIFIED WITH MANAGER DISH THAT SWELLING WAS PRESENT IN PACU BUT IS NOW SLIGHTLY MORE, DR. KNOX NOTIFIED, ORDER TO PLACE ICE PACK TO SITE AND CONTINUE TO MONITOR. PT DENIES DIFFICULTY BREATHING. DRESSING TO ABD, CDI.
--- NOTE | 2021-07-10 17:41 | NUR ---
PT HAS CONTINUED TO HAVE NAUSEA AND EMESIS, ABOUT 150ML OF BILE SINCE 1600. CALL PLACED TO DR. KNOX, ORDER TO START COMPAZINE 5-10MG AND TO CHECK WITH PHARMACY ON FREQUENCY AND CONTRAINDITCATIONS. CALL PLACED TO TELEPHARMACY, ONLY PRECAUTION IS FOR QTC PROLONGATION BUT HE IS NOT CONCERNED DUE TO PT AGE AND HEALTH HISTORY, USUAL FREQUENCY OF Q4PRN. ORDER ENTERED.
--- NOTE | 2021-07-10 18:43 | NUR ---
PT GIVEN COMPAZINE PER ORDER. REPOSITIONED IN BED. DRESSING TO ABD, CDI. PT DENIES OTHER NEEDS AT THIS TIME. FAMILY AT BEDSIDE.
--- NOTE | 2021-07-10 19:25 | NUR ---
PATIENT DID HER OWN SURGICAL WIPE DOWN THIS MORNING. NEW GOWN. AFTER SHE WENT TO SURGURY I CHANGE HER BED LINENS.
--- NOTE | 2021-07-10 20:00 | NUR ---
Pt is resting in bed and appears comfortable. Family at bedside. Call light within reach. Report received from day shift RN.
--- NOTE | 2021-07-10 20:05 | NUR ---
CALL LIGHT ANSWERED. PATIENT'S STATED SHE IS STILL VOMITTING AND IN PAIN. PRIMARY RN LISSETH NOTIFIED.
--- NOTE | 2021-07-10 20:37 | NUR ---
RECEIVED A CALL FROM DR KNOX. IF NAUSEA IS NOT CONTROLLED WITH CURRENT MEDICATIONS THEN GIVE A ONE TIME DOSE OF SOLU-MEDROL. ORDERS ENTERED. PRIMARY RN UPDATED.
--- NOTE | 2021-07-10 23:00 | NUR ---
Pt is resting in bed with her at bedside. Call light within reach. Appears comfortable without N/V following PRN medication administration. VSS. Compliant with assessment and medication administration. Abd dressing CDI. Inman catheter in place, draining clear, yellow urine. Rt triple lumen IJ patent. Will cont to monitor.
--- NOTE | 2021-07-11 00:46 | NUR ---
Pt is resting in bed with her eyes closed- at bedside. Pt appears comfortable at this time without noted emesis. Call light within reach. VSS. CL patent. Inman catheter in place. Will cont to monitor.
--- NOTE | 2021-07-11 01:33 | NUR ---
Pt with c/o nausea and pain- prn zofran and dilaudid administered as ordered- see emar for administration information. Call light within reach. Pt's remains at bedside. IV fluids and medication infusing without noted difficulty. Will continue to monitor.
--- NOTE | 2021-07-11 06:15 | OR ---
[facility] [address] [place], [place] [address] Signed DATE OF OPERATION: SURGEON: Wilfredo Knox MD PREOPERATIVE DIAGNOSES: 1. Crohn disease of terminal ileum resulting in high-grade partial small bowel obstruction. 2. Acute malnutrition. POSTOPERATIVE DIAGNOSES: 1. Crohn disease of terminal ileum resulting in high-grade partial small bowel obstruction. 2. Acute malnutrition. PROCEDURES: 1. Ileocecectomy with end-to-end ileocolonic anastomosis hand-sewn in two layers. 2. Placement of right IJ triple lumen catheter. 3. Physician directed ultrasound. ESTIMATED BLOOD LOSS: None. FINDINGS: She clearly had transmural thickening of the terminal ileum along with fat wrapping resulting in a high-grade partial small bowel obstruction. We did run the small bowel all the way from the ileocecal valve back to the ligament of Treitz. We did not find any other areas of concern either visibly or palpably. Therefore, we proceeded with a standard ileocecectomy. INDICATIONS: Carlos is a 25-year-old young lady, who over the last seven months has been having trouble with right lower quadrant abdominal pain. It generally comes about 45 minutes or so after she eats. She cut back from solid food to liquid foods. It was getting progressively worse. Finally, her family brought her to the emergency room for evaluation about 10 days ago. Her white count was elevated and there was right-sided abdominal pain. The ER physician ordered an ultrasound of the liver and gallbladder, which was unremarkable. Therefore, CT scan was ordered and sure enough she had a thickening to the last 5-8 cm of her terminal ileum. There was question whether or not she had an area up in the jejunum as well. We had admitted her, hydrated her and within 2-3 days she was feeling better. She was able to get liquid through this narrow stricture. She was trying to take diet, and again was having recurrent symptoms. We Electronically Signed By: WILFREDO KNOX MD 07/11/21 0615 PATIENT NAME: CARLOS PATEL OPERATIVE REPORT DATE OF : [birth year] REPORT #: [id number] PHYSICIAN: WILFREDO KNOX MD PCP: LITTLE MORENO PA-C REPORT IS CONFIDENTIAL AND NOT TO BE RELEASED WITHOUT AUTHORIZATION [facility] [address] [place], [place] [address] Signed added IV Solu-Medrol for seven full days and it made no difference. I had brought the literature on inflammatory bowel disease as well as the concept of a right colectomy for her Crohn disease. We did talk about possible endoscopy that she is never going to tolerate the bowel prep. In addition, it would simply provide a biopsy without definitive treatment. She had actually declined colonoscopy. I had met with Carlos and her boyfriend each and every day, with her mom several times and her father today. We reviewed all this in great detail. She has tried several times now to advance her diet with the same results with crampy abdominal pain, followed by nausea and vomiting. She finally decided she wanted to proceed with her ileocecectomy. We reviewed that surgery in great detail. She understands there is risk including, but not limited to bleeding, infection, scarring, change in contour of the skin, damage to bowel, anastomotic leak, incisional hernias and other unforeseen comorbidities. We also discussed the need for a triple lumen catheter placement as she has been about 10 days now without any significant nutritional support other than IV fluids. We reviewed placement of the IV generally in the right internal jugular vein. She understands there is risk including, but not limited to bleeding, infection, scarring, change in contour of the skin as well as pneumothorax requiring chest tube placement. Carlos, her boyfriend, and her dad have all expressed understanding and wished to proceed. DESCRIPTION OF PROCEDURE: Carlos was brought down to the operating room and placed in the supine position under general endotracheal tube anesthesia. She was given preoperative antibiotics. She was already on subcutaneous Lovenox. SCDs were utilized. She was prepped and draped in the usual sterile fashion. The abdomen are re-examined without any palpable masses. She was then prepped and draped in usual sterile fashion. A standard periumbilical midline incision was made, carried in the abdomen without difficulty. We could immediately see that overall the cecum was actually quite nice, but the terminal ileum was very thickened, indurated, fibrotic with fat wrapping. We could see just proximal at the bowel still a little bit dilated, but it quickly transition into normal thickness and no fat wrapping. As expected, the mesentery to that short segment was also thickened as well was quite supple. Again, we ran the entire small bowel from the ileocecal valve back to the ligament of Treitz. We did not find any other areas either visibly or palpably that would suggest Crohn's that needed to be resected. We had freed up the cecum along the white line of Toldt about fci up the right abdominal wall in order to elevate the cecum up into the operative field along with the appendix. We divided the cecum with our linear stapler just distal to the ileocecal valve. We divided the small bowel just proximal to the area of Crohn's that we could see and palpate, where we felt it was a normal bowel and uninvolved. We scored the mesentery on either side and then used Pean clamps and 0-Vicryl ties to secure the mesentery. After this, the specimen was passed off the field. We brought the terminal ileum up to the proximal right colon in an end-to-end fashion. A two-layered anastomosis was performed with Vicryl suture for both layers. One could easily palpate the opening with index Electronically Signed By: WILFREDO KNOX MD 07/11/21 0615 PATIENT NAME: CARLOS PATEL OPERATIVE REPORT DATE OF : [birth year] REPORT #: [id number] PHYSICIAN: WILFREDO KNOX MD PCP: LITTLE MORENO PA-C REPORT IS CONFIDENTIAL AND NOT TO BE RELEASED WITHOUT AUTHORIZATION [facility] [address] [place] [id number] Signed finger and the thumb. The mesentery was then closed with a running 3-0 Vicryl suture as well. The area was then irrigated and suctioned out until completely clear. The bowel was then returned to the abdomen in its normal anatomic position. The omentum was then brought back down over the small bowel. We then closed the midline fascia with interrupted #1 [id number] PDS sutures. Local anesthetic was injected in the abdominal wall. The wound was irrigated and suctioned out until clear. We brought the dermis back together with interrupted 3-0 subcuticular Monocryl sutures. The skin edges were reapproximated with isauro. Dry gauze and tape were then applied. Her Inman catheter was left in place and she was left intubated on the ventilator. The entire field was taken down and her right neck and chest were prepped and draped in the usual sterile fashion. We used the ultrasound to find the right internal jugular vein and carotid artery. Local anesthetic was injected underneath the skin. The needle was visualized passing down into the internal jugular vein and we were able to draw a dark non venous pulse without blood. The wire was able to feed without any resistance whatsoever. We dilated the tract and again the dilator traveled and curved in the appropriate direction. We then passed the triple-lumen catheter up to 14 cm and secured it in place at the level of the neck with silk suture. All three ports were able to draw and flush quite readily. Additional interrupted silk sutures were used to hold the hub on the side of the neck as well. Dry plastic occlusive dressing was then applied. After this, Carlos was awakened from anesthesia, extubated in the OR, and taken to the recovery room in stable condition. Wilfredo Knox MD ALB/MODL /[id number] cc: MD Wilfredo An MD Patient Chart Little Moreno PA-C Electronically Signed By: WILFREDO KNOX MD 07/11/21 0615 PATIENT NAME: CARLOS PATEL OPERATIVE REPORT DATE OF : [birth year] REPORT #: [id number] PHYSICIAN: WILFREDO KNOX MD PCP: LITTLE MORENO PA-C REPORT IS CONFIDENTIAL AND NOT TO BE RELEASED WITHOUT AUTHORIZATION [address] [address] Signed Copies: CLAUDIA BLANCO MD, ANDREW L MD NORRIS, CHLOE K PA-C ~ Electronically Signed By: WILFREDO KNOX MD 07/11/2115 PATIENT NAME: CARLOS PATEL OPERATIVE REPORT DATE OF : [birth year] REPORT #: [id number] PHYSICIAN: WILFREDO KNOX MD PCP: LITTLE MORENO PA-C REPORT IS CONFIDENTIAL AND NOT TO BE RELEASED WITHOUT AUTHORIZATION
--- NOTE | 2021-07-11 07:30 | NUR ---
PT UTILIZES CALL LIGHT, REQUESTS PRN FOR PAIN AND NAUSEA. RATES PAIN 4/10 TO ABD AND BACK. PRN ADMINISTERED, SEE EMAR. LAB DRAW OBTAINED FROM CENTRAL LINE PER PROTOCOL. PT TOLERATED WELL. PT'S SIGNIFICANT OTHER RESTING AT BEDSIDE. PT DENIES FURTHER NEEDS. CALL LIGHT IN REACH.
--- NOTE | 2021-07-11 08:19 | NUR ---
MORNING ASSESSMENT DONE. PATIENT IS SLEEPY, SHAKES HEAD NO WHEN ASKED ABOUT PAIN. MINLINE INCISION IS COVERED WITH GUAZE AND TAPE, CDI. TPN, KCL RIDER INFUSING TO RIGHT IJ. SCD'S IN PLACE, GARCIA INTACT WITH CLEAR YELLOW URINE.
--- NOTE | 2021-07-11 10:29 | NUR ---
MORNING MEDICATIONS GIVEN. ENCOURAGED PATIENT TO MOVE ABOUT, POSSIBLY UP TO CHAIR, PATIENT INDICATED THAT SHE WAS TOO NAUSEATED. PLAN TO GIVEN ZOFRAN. PATIENT GIVEN ICE CHIPS, SHE HAS CLEAR LIQUIDS ORDERED.
--- NOTE | 2021-07-11 13:34 | NUR ---
ENCOURAGED PATIENT TO GET UP TO CHAIR, SHE SHOOK HER HEAD NO. FAMILY IN ROOM WITH PATIENT.
--- NOTE | 2021-07-11 14:18 | NUR ---
PER AM MEETING NO PLANS FOR DISCHARGE AT THIS TIME.
--- NOTE | 2021-07-11 15:17 | NUR ---
PATIENT GIVEN 1MG IV DILAUDID FOR 6/10 PAIN.
--- NOTE | 2021-07-11 16:29 | NUR ---
NEW TPN AND TUBING HANGING. LIPIDS INFUSING WELL. PATIENT IS VERY COMFORTABLE AFTER PAIN MEDICATIONS.
--- NOTE | 2021-07-11 18:52 | NUR ---
PATIENT IS SLEEPING WITH REGULAR RESPIRATIONS. FAMILY IN ROOM.
--- NOTE | 2021-07-11 21:58 | NUR ---
Report received from day shift RN. C/O nausea and abdominal pain w/ request for PRNs- see emar for details. Pt compliant with medication administration and assessment. Repositioned in bed and appears comfortable. VSS. IVF infusing via CL w/o noted difficulty. Inman catheter patent w/ clear, yellow urine. SCDs in place. Abdominal dressing C/D/I. Pt's remains at bedside. Pt verbalizes needs appropriately; call light at hand. Will cont to monitor.
--- NOTE | 2021-07-12 00:19 | NUR ---
Pt is resting in bed with her eyes closed at this time and appears comfortable. Tolerating IV fluids and medications. PRNs administered for nausea and pain per pt request- see emar for administration information. Call light within reach. Pt's remains at her bedside. Will cont to monitor.
--- NOTE | 2021-07-12 02:24 | NUR ---
Pt awake in bed and c/o abd pain- pt repositioned and prn pain medication administered per order- see emar for administration information. Call light at hand- pt verbalizes needs appropriately. VSS. Will cont to monitor.
--- NOTE | 2021-07-12 05:17 | NUR ---
Pt compliant with assessment this morning. Pt c/o abdominal pain and nausea- PRNs administered as ordred. Pt repositioned in bed. Tolerating ivf. Inman catheter patent, draining clear, yellow urine. CL and peripheral iv patent. Call light within reach. Will cont to monitor.
--- NOTE | 2021-07-12 09:01 | NUR ---
ASSUMED CARE OF PTAsif FIGUEROA REPORT FROM NIGHT RN, RESTING IN BED, AWAKE, ALERT, C/O NAUSEA, WHICH HAS CONTINUED POST OP, SCHEDULED GASTRIC MEDS AND PRN NAUSEA MEDS GIVEN, TENDER ABDOMEN TO THE TOUCH, SKIN IS VERY SENSITIVE, SHE HAS NOT BEEN UP OOB YET, TPN INFUSING, FAMILY AT BEDSIDE
--- NOTE | 2021-07-12 09:52 | NUR ---
PT IS LAYING IN BED WATCHING TV. MOM AND IN ROOM. CALL LIGHT WITHIN REACH NO FURTHER TASKS AT THIS TIME
--- NOTE | 2021-07-12 10:00 | NUR ---
Update from Dr. Sommer. No plan for dc today.
--- NOTE | 2021-07-12 12:15 | NUR ---
COVID 19 SWAB OBTAINED. PT TOLERATED WELL.
--- NOTE | 2021-07-12 12:21 | NUR ---
FOLLOWED BOYFRIEND INTO RM. PT ALERT, ORIENTED AND LAYING IN BED WITH TISSUE IN R NOSTRIL DUE TO A BLEED. PT PLEASANT, HAD LITTLE SLEEP. C/O NAUSEA AND PAIN. RN IRAIS WILL ATTEND TO THIS NEED. GAVE BLESSING AND ENCOURGEMENT. WILL FOLLOW NEEDED
--- NOTE | 2021-07-12 13:50 | NUR ---
pt is laying in bed in room. i&o and vs charted call light within reach no further tasks at this time
--- NOTE | 2021-07-12 15:00 | NUR ---
AFTER DISCONTINUING THE GARCIA CATHETER, PT. THEN WITH MIN ASSIST, GOT TO THE EOB AND THEN STOOD, AMBULATED TO THE BR WITH HER S/O AND RN NEARBY, NO URINE AT THIS TIME AFTER AN ATTEMPT. SHE THEN AMBULATED IN THE ROOM AND TO THE CHAIR. ABDOMEN PAIN IS CONTINUOUS PER PATIENT, IT IS RATED 5 OR MORE REGARDLESS OF ANY PRN PAIN MEDS GIVEN, REPOSITIONING PT, OFFERING ALTERNATIVE PAIN RELIEF MODES. NAUSEA COMPLAINTS CONSISTENT WELL , DESPITE USE OF PRN PAIN MEDS. ENCOURAGED TO BREATH THROUGH NOSE AND OUT MOUTH TO RELAX WHEN MOVING AND SPLINT HER ABDOMEN WITH A PILLOW. TPN RUNNING CONTINUOUSLY, LIPIDS M-W-F ANTIBIOTICS CONTINUE, LOVENOX SQ, SCD'S AT HS, K+ 3.1 AND REPLACED IV SLOWLY. COVID RPR NEGATIVE. MINIMAL CL INTAKE D/T NAUSEA. STATES SHE WILL ATTEMPT A SHOWER TOMORROW. ABDOMEN LASHAUN INTACT AND SKY. NO REDNESS, DRAINAGE.
--- NOTE | 2021-07-12 16:27 | NUR ---
TPN REPLACED, NEW TUBING IN PLACE WELL. CLEAR TPN PUMP AND REASSESS HER PAIN. PAIN IS AT 4/10 AND IS AT A COMFORTABLE LEVEL FOR HER PER THE PATIENT
--- NOTE | 2021-07-12 19:15 | NUR ---
REPORT RECEIVED FROM RN IRAIS. pt RESTING IN BED AWAKE, TPN INFUSING WNL ORDERED IN IJ. URINE EMPTIED FROM HAT. pt RATES PAIN 5.5/10 IN ABOMDEN. INCISION CDI WITH LASHAUN NO REDNESS OR DRAINAGE NOTED. IN ROOM. NO REQUESTS AT THIS TIME.
--- NOTE | 2021-07-12 21:50 | NUR ---
pt RESTING IN BED AWAKE, BACK FROM RESTROOM AFTER VOID. TPN INFUSING WNL. IJ FLUSHED X 2 PORTS, BRISK BLOOD RETURN. LEFT HAND IV D/C'D WNL PER POLICY, pt REQUEST. ASSESSMENT COMPLETE. BOWEL TONES ACTIVE X 4, ABD SOFT, TENDER RLQ WITH PALPATION. INCISION CDI WITH LASHAUN. FLATUS PRESENT. ICE WATER AND APPLE JUICE PROVIDED. CALL LIGHT IN REACH.
--- NOTE | 2021-07-12 22:31 | NUR ---
CBG 131 AT THIS TIME.
--- NOTE | 2021-07-12 22:35 | NUR ---
BLOOD SUGAR CHECKED DONE AND PRIMARY RN JAROCHO NOTIFIED.
--- NOTE | 2021-07-13 00:45 | NUR ---
CHECKED ON pt. RESTING IN BED. LIGHTS OFF IN ROOM. NO DISTRESS NOTED.
--- NOTE | 2021-07-13 03:05 | NUR ---
CALL LIGHT ANSWERED. pt C/O 09/11 PAIN IN ABDOMEN AFTER AMBULATING TO RESTROOM AND BACK TO BED. URINE EMPTIED, 300 ML YELLOW URINE. ASSESSMENT COMPLETE. BOWEL TONES ACTIVE X 4, ABD SOFT, TENDER WITH PALPATION, pt HAS NO C/O NAUSEA. FLATUS REPORTED. TPN INFUSING CENTRAL LINE WNL. CALL LIGHT IN REACH.
--- NOTE | 2021-07-13 05:49 | NUR ---
GERMAN INSTRUCTOR IN ROOM. pt AWAKE. COMPLAINS OF 6/10 PAIN IN ABDOMEN, SOME NAUSEA. SL ZOFRAN ADMINSITERED AT THIS TIME. PRN PAIN MEDICATION ADMINISTERED. SBA TO RESTROOM FOR VOID. pt BACK IN BED. TPN INFUSING CENTAL LINE ORDERED. CALL LIGHT IN REACH. ICE WATER REFRESHED.
--- NOTE | 2021-07-13 07:55 | NUR ---
REPORT RECIEVED. PT IN BED AWAKE. REPORTS PAIN 06/12. TPN INFUSING AT 83ML/HR. CALL LIGHT IN REACH. DENIES FURTHER NEEDS.
--- NOTE | 2021-07-13 08:53 | NUR ---
ASSESSMENT COMPLETED. PT REPROTING 10 INCISIONAL PAIN. 1MG DILAUDID ADMISNTERED. PT REPORTS SMALL AMOUNT OF NAUSEA AND WOULD LIKE SOMETHING BEFORE EATING BREAKFAST. PO PHENERGAN GIVEN. PT ASSISTED TO BATHROOM BY . LUNGS DIM IN BASES. BOWEL TONES ACTIVE. PT REPORTS PASSING FLATUS. NO BM. HEART SOUNDS REGULAR AND TACHYCARDIC. DENIES FURTHER NEEDS. CALL LIGHT IN REACH.
--- NOTE | 2021-07-13 10:31 | NUR ---
PT AMBULATED 1/2 LAP IN DYE. AFTER RETURNING TO BED PT REPORTS ABDOMINAL INCISION PAIN OF 8/10. 0.5MG IV DILAUDID ADMINSTERED. PT COMFORTABLE IN BED AND DENIES FURTHER NEEDS CALL LIGHT IN REACH.
--- NOTE | 2021-07-13 11:00 | NUR ---
ROUNDED ON PT TO REASSESS PAIN. PT REPORTS 6/10 PAIN AND THAT IT IS MORE TOLERBLE AT THIS TIME.
--- NOTE | 2021-07-13 12:34 | NUR ---
PT REPORTING 6/10 PAIN IN ABDOMEN AND SOME NASUEA. MOTRIN AND ZOFRAN ADMISNTERED.
--- NOTE | 2021-07-13 14:51 | NUR ---
PT OUT AMBULATING DYE.
--- NOTE | 2021-07-13 15:00 | NUR ---
Spoke with Carlos after I spoke with Dr. Vences's office. Per Isa, they have not heard from this pt and are getting ready to close the referal. When I spoke with Carlos, she states she spoke with Oksana from Gastro at Dr. Vences's office. She states since pt has had bowel surgery, they will not be able to see for 6 months. I had a request from Isa in the office to send pts surgery notes. Surgery and progress notes faxed to [facility] department. [phone] fax
--- NOTE | 2021-07-13 16:03 | NUR ---
Called and spoke with Oksana from Gastro office. She states she spoke with the pt when she called in asking to schedule a colonoscopy. She asked the pt why she needed a colonoscopy and pt states she had colon surgery. She states she asked the pt to have the surgeon write and order to ok a colonoscopy. Let Oksana know since I sent the referral pt did have surgery for Ileocecectomy with end to end ileocolonic anastomosis. The referral did not request a colonosocopy. She will review the chart in the am and speak with Dr. Vences to see if he would like this pt to come in for an office visit.
--- NOTE | 2021-07-13 16:35 | NUR ---
TPN STARTED AND VERIFIED BY JOHN PENA.
--- NOTE | 2021-07-13 18:42 | NUR ---
PAIN REPROTED 07/12. PT UP TO BATHROOM BY . PT NOW BACK IN BED.
--- NOTE | 2021-07-13 19:35 | NUR ---
REPORT RECEIVED FROM JEAN OLIVAREZ. pt RESTING IN CHAIR, DROWSY. TALKING ON PHONE WITH CHILDREN. RATES PAIN 5/10 IN ABDOMEN. TPN AND LIPIDS INFUSING CENTRAL LINE WNL. URINE EMPTIED FROM HAT. NO REQUESTS AT THIS TIME.
--- NOTE | 2021-07-13 21:15 | NUR ---
pt RESTING IN CHAIR WITH EYES CLOSED. ALLOWED TO REST AT THIS TIME. NO DISTRESS NOTED.
--- NOTE | 2021-07-13 23:11 | NUR ---
pt SLEEPING IN CHAIR. AWAKENS TO VOICE. VSS. SBA WITH SIGNIFICANT OTHER TO RESTROOM FOR VOID AND BACK TO BED. ASSESSMENT COMPLETE. pt RATES PAIN 6/10, PRN PAIN MEDICATION ADMINISTERED WITH BITES OF APPLESAUCE. ICE WATER REFILLED. IJ FLUSHED WITH SL, LUMENS X 2 HEP LOCKED. CALL LIGHT AND PERSONAL SUPPLIES IN REACH. pt HAS NO C/O NAUSEA.
--- NOTE | 2021-07-14 02:03 | NUR ---
CHECKED ON pt. RESTING IN BED WITH EYES CLOSED. BREATHING UNLABORED. IV PUMP BEEPING LOW BATTERY. PUMPS PLUGGED IN AT THIS TIME.
--- NOTE | 2021-07-14 04:26 | NUR ---
CALL LIGHT ANSWERED. LIPID INFUSION COMPLETE. SBA TO RESTROOM FOR VOID WITH SIGNIFICANT OTHER. pt BACK IN BED, ASSESSMENT COMPLETE. pt RATES PAIN 7/10 "FEELS LIKE THE INCISION IS PULLING WHEN I MOVE, IT MIGHT BE THE LASHAUN". PRN TYLENOL ADMINISTERED. PRN SL ZOFRAN ADMINISTERED FOR NAUSEA. BOWEL TONES HYPOACTIVE. pt PASSING GAS. ICE WATER REFILLED. VSS. TPN INFUSING WNL. NO ADDITIONAL REQUESTS.
--- NOTE | 2021-07-14 06:07 | NUR ---
pt AWAKE WHEN RN ENTERS ROOM. LABS DRAWN FROM CENTRAL LINE PER POLICY. CLAVE CHANGED. ALL LUMENS WITH BRISK BLOOD RETURN, SL. CALL LIGHT IN REACH. TPN INFUSING WNL. CALL LIGHT IN REACH. pt HAS NO REQUESTS AT THIS TIME. MD IN ROOM.
--- NOTE | 2021-07-14 07:10 | NUR ---
FAXED THE REFERRAL TO [facility], WE DID [facility] DIRECTED BY THE REFERRAL SPECIALISTS THAT I TALKED TO YESTERDAY. I INFORMED THE PATIENT THAT HER INFORMATION WAS SENT TO [facility] AND SHE AGREED THATS WHERE SHE WANTED IT SENT.
--- NOTE | 2021-07-14 09:55 | NUR ---
PATIENT STILL WORKING ON BREAKFAST, SPECIFICALLY INDONESIAN TOAST. SHE HAS TAKEN A COUPLE OF BITES AND IS EATING SLOWLY. SHE HAS ALSO TAKEN A COUPLE SIPS OF ALMOND MILK. SHE STATES SHE TAKES NAUSEA MEDICATION 30 MIN PRIOR TO EATING WHICH HELPS. NO VOMITING. SHE DID DRINK AN ENSURE CLEAR LAST NIGHT ALONG WITH A FEW BITES OF PUDDING AND APPLESAUCE. I ENCOURAGED HER TO EAT AT LEAST A FEW MORE BITES EACH DAY. SHE ASKED FOR BLENDED BMET TO COME WITH LUNCH AND DINNER - WILL ALERT THE KITCHEN. TPN CONTINUES PROVIDING AN AVERAGE OF 1,974 CALORIES AND 100 GM PROTEIN PER 24 HRS. SOFT DIET NOW ORDERED. WILL CONTINUE TO MONITOR AND ENCOURAGE PATIENT TO EAT MORE EACH DAY IF SHE CAN.
--- NOTE | 2021-07-14 11:06 | NUR ---
PT AWAKE IN BED WATCHING TV. PT ABLE TO EAT BREAKFAST, STATES PAIN IS IMPROVED AT 3/10. DENIES FURTHER NEEDS AT THIS TIME. CALL LIGTH WITHIN REACH.
--- NOTE | 2021-07-14 11:37 | NUR ---
UNABLE TO FLUSH BROWN, DISTAL LUMEN OF CENTRAL LINE. PROXIMAL LINE RUNNING TPN, MEDIAL LUMEN FLUSHED, GOOD BLOOD RETURN.
--- NOTE | 2021-07-14 13:49 | NUR ---
No change in plan, pt will dc to home on dc with family to assist.
--- NOTE | 2021-07-14 14:16 | NUR ---
JEAN MEDINA REQUESTED I NOT DISTURB PT AT THIS TIME. WILL CHECK BACK
--- NOTE | 2021-07-14 18:11 | NUR ---
PT C/O 09/11 ABD PAIN AND NAUSEA. PAIN AND NAUSEA MEDS GIVEN. WARM BLANKET. DENIES FURTHER NEEDS AT THIS TIME. CALL LIGHT WITHIN REACH.
--- NOTE | 2021-07-14 19:05 | NUR ---
CALLED DR KNOX REGARDING PT TEMP OF 102.1. GIVE TYLENOL. NO BLOOD CULTURES AT THIS TIME.
--- NOTE | 2021-07-14 20:31 | NUR ---
PT INSTRUCTED ON NEW CHANGES, PER NEW ORDERS, COOPERATIVE, AWARE OF NEED TO GET UA. LAB HERE TO DRAW PERIPHERAL CULTURES
--- NOTE | 2021-07-14 21:45 | NUR ---
IN TO GET VITALS, WARM BLANKET FOR HER SHOMACH, NO FURTHER NEEDS AT THIS TIME
--- NOTE | 2021-07-14 23:00 | NUR ---
2150-CHECKED ON PT PRIMARY RN JAYCOB IS IN ANOTHER ROOM AND PT REQUESTED MEDICATION. ENTERED ROOM, SHE EXPLAINED THE PLAN OF HAVING HER CL PULLED TONIGHT AND NEW IV STARTED. PT ANXIOUS ABOUT THIS AND FRUSTRATED THAT SHE DOES NOT GET NOTICE WHEN THINGS CHANGE. LISTENED TO PT AND EXPLAINED THINGS CHANGE QUICKLY AT THE HOSPITAL AND WE WILL DO OUR BEST TO GIVE HER MUCH NOTICE WE CAN. 2229-ADMINISTERED 4MG PO DILAUDID FOR 5/10 ABD PAIN, AND 1MG IV ATIVAN FOR ANXIETY. ALSO ADMINISTERED 8MG SL ZOFRAN FOR NAUSEA. PT REPORTS NOT BEING ABLE TO EAT MUCH TURKEY AT DINNER AND STATES SHE ALWAY IS NAUSEOUS. PT UP TO RESTROOM TO URINATE, SAMPLE COLLECTED FOR LAB. PT DENIES FURTHER NEEDS, CALL LIGHT IS CLOSE AND SIG. OTHER IS IN THE ROOM.
--- NOTE | 2021-07-15 00:41 | NUR ---
PT AWAKE, CALM BUT IRRITABLE MOOD, AWARE OF NPO STATUS, GOT UPSET WHEN I REMOVED UNOPENED APPLESAUCE CONTAINERS FROM SIDE TABLE. REMINDED OF NPO STATUS. TPN STILL INFUSING, WILL DC IJ WHEN COMPLETED AND RESTART PERIPHERAL IV SITE, PT AWARE.
--- NOTE | 2021-07-15 03:00 | NUR ---
PERIPHERAL IV SITE STARTED BY MELISSA PENA. LFA 20G. PROCEDURE EXPLAINED PT WAS COOP. LABS OBTAINED AND SENT TO LAB.
--- NOTE | 2021-07-15 03:02 | NUR ---
IN ROOM TO ADMINISTER ATIVAN 1MG IV DILUTED BEFORE CL IS REMOVED. MELISSA PENA IS IN ROOM TO START AN IV BEFORE CL IS REMOVED.
--- NOTE | 2021-07-15 03:45 | NUR ---
IN ROOM TO ASSIST JAYCOB PENA IN REMOVING R IJ CENTRAL LINE. SHE HAD SOME SUTURES REMOVED, THIS RN FINISHED REMOVING THE SUTURES. PT IN [place] POSITION AND EXHALED WHILE PULLING CL. STERILE PETROLEUM GAUZE APPLIED WITH PRESSURE AND STERILE GAUZE OVER THE TOP. CONTINUED TO HOLD PRESSURE. PT TOLERATED IT WELL AND CATH TIP IS INTACT. OCCLUSIVE TEGADERM APPLIED OVER GAUZE. SIG. OTHER IN THE ROOM NOTIFIED TO LET US KNOW IF THERE IS ANY BLEEDING. PT INSTRUCTED TO LAY FLAT ON HER BACK FOR 30 MINUTES. PT DENIES FURTHER NEEDS. JAYCOB PENA REMAINS IN THE ROOM AT THIS TIME.
--- NOTE | 2021-07-15 04:54 | NUR ---
COMPLETED BED LINEN CHANGED, FLOORS WIPED THEY WERE STICKY. PT COMPLETED HER SHOWER, TOLERATED WELL. BACK TO BED, ON ROOM AIR. CLEAR LUNGS, MIDLINE ABD INCISION WITH LASHAUN, EDGES WELL APPROXIMATED, PINK, DRY. NADEGE, TENDER TO TOUCH. DENIES HAVING BM, IVF STATRTED ONTO PHERIPHERAL SITE LFA. TRIED TO PLACED COBAN OVER IV SITE TO PREVENT FROM GETTING ACCIDENTALLY PULLING IV. PT STARTED C/O THAT IT WAS TOO TIGHT ON HER SKIN EVEN BEFORE THE FIRST ROUND OF COBAN WAS APPLIED. WILL KEEP AN EYE ON SITE. SIGNIFICANT OTHER IN ROOM. ALL PROCEDURES EXPLAINED TO PT, PT CONTINUES TO HAVE NEGATIVE COMMENTS ABOUT CARE/PROCEDURES. C/O FEELING PAINFUL WILL MEDICATED PER COMFORT
--- NOTE | 2021-07-15 05:15 | NUR ---
IN ROOM TO ADMINISTER PO DILAUDID 4MG WITH SIP OF WATER AND 8MG SL ZOFRAN. PROVIDED GREEN ORAL SWABS AND SUCTION KIT'S MOUTH MOISTURIZER PT STATES SHE HAS A VERY DRY MOUTH. WARM BLANKETS PROVIDED AND PT DENIES FURTHER NEEDS AT THIS TIME. CALL LIGHT IS CLOSE.
--- NOTE | 2021-07-15 06:11 | NUR ---
dr freedman in room at this time. Pt had a 102.1 temp earlier on am shift, new orders were obtained for BC, UA sent to lab. TPN was decreaed and dc'd, IJ was removed and tip sent to lab, new peripheral IV site started by SENIOR TREASURY CONSULTANT, Pt took a shower, has been medicated with Pain med per midline abd incision pain, area with isauro in place, emil, passing gas, medicated with zofran per c/o n/v. Medicated with Ativan per anxiety, all effective. Pt continues to have multiple c/o and negative comments about her care, all procedures explained but unable to satisfy. Pt NPO as per md orders, male friend in room. Continue to explain all procedures priorto, give her time to assimilate and answer her questions. praise efforts, pain control, enc ambulation.Bed linen changed prior to showers
--- NOTE | 2021-07-15 08:26 | NUR ---
MORNING ASSESSMENT COMPLETE. PT C/O 08/12 PAIN THOUGH STATES IT IS TOLERABLE AT THIS TIME. REQUESTED APPLESAUCE AND WATER. DENIES FURTHER NEEDS AT THIS TIME. CALL LIGHT WITHIN REACH.
--- NOTE | 2021-07-15 08:27 | NUR ---
PT. BROUGHT ICE WATER AND APPLE SAUCE. SHE IS PLEASANT AND DENIES FURTHER NEEDS. JEAN MEDINA IN THE ROOM.
--- NOTE | 2021-07-15 11:20 | NUR ---
Spoke with pt and boyfriend. Pt denies needs. She has not received a call from Oksana at [facility], updated I had spoken with her and she will speak with Dr. Vences about a plan for pt to establish care.
--- NOTE | 2021-07-15 12:12 | NUR ---
PT IN BED, DEALING WITH NAUSEA. GAVE COMFORT, INFORMED RN CAROL, SHE WILL FOLLOW UP. WILL FOLLOW
--- NOTE | 2021-07-15 12:57 | NUR ---
PT C/O NAUSEA AND 6/10 ABD PAIN. GIVEN ZOFRAN AND TYLENOL. REPORTS PASSING GAS. DENIES FURTHER NEEDS AT THIS TIME. CALL LIGHT WITHIN REACH.
--- NOTE | 2021-07-15 13:34 | PATH ---
[facility] [address], [place] [address] Signed SPECIMEN(S): A TERMINAL ILEUM, CECUM, APPENDIX SPECIMEN SOURCE: A. TERMINAL ILEUM, CECUM, APPENDIX CLINICAL HISTORY: Terminal ileitis, small bowel obstruction, possible viral ileitis, Crohn's disease, ulcerative colitis. FINAL PATHOLOGIC DIAGNOSIS: Terminal ileum, cecum, and appendix, right hemicolectomy: - Ileum with chronic, active ileitis and fibromuscular thickening, see Comment. - Colon with no histopathologic abnormality. - Appendix with fibrous obliteration. - Viable surgical margins. - No evidence of malignancy. COMMENT: A portion of the patient's medical records were reviewed and the history of terminal ileitis with small bowel obstruction is noted. Sections of the terminal ileum demonstrate features of activity (cryptitis, ulceration) and chronicity (architectural distortion, pyloric gland metaplasia, crypt loss). There are transmural lymphoid aggregates and muscularization of the submucosa. Granulomas are not identified. Overall, given the histologic features in the terminal ileum and the normal appearance of the colon, Crohn's disease is favored. However, the differential diagnosis also includes infectious etiologies which must be ruled out. NAL:cml:C2NR MICROSCOPIC EXAMINATION: Histologic sections of all submitted blocks are examined by light microscopy. These findings, together with the gross examination, support the pathologic diagnosis. GROSS DESCRIPTION: The specimen, labeled "AH, terminal ileum, cecum, appendix," is received in formalin and consists of previously opened terminal ileum, cecum and part of the ascending colon with attached fibroadipose tissue. The terminal ileum measures 7.5 cm in length and 2.5 cm in inner PATIENT NAME: JOB PATEL PATHOLOGY DATE OF : [birth year] REPORT #: [id number] PHYSICIAN: BEA HENDRIX PCP: BROOKE TEJEDA PA-C REPORT IS CONFIDENTIAL AND NOT TO BE RELEASED WITHOUT AUTHORIZATION [facility] [address], [place] [address] Signed circumference. The wall of the terminal ileum is indurated and measures 0.6 cm in thickness. The serosal surface is pink-meza, smooth. The mucosa is pink-meza, flat and rough in almost entire length. The mucosa approximately 0.7 cm from resection margin is pink-meza, corrugated. The proximal colon measures 2.5 cm in length and 2.2 cm in diameter. The colon and cecum mucosa are pink-meza and corrugated. The appendix measures 5.5 cm in length and 0.6 cm in diameter. The serosal surface is pink-meza, smooth. Sectioning through the appendix reveals pink-meza mucosa. Cassette Summary: (A1) Proximal resection margin, shave (A2) Distal resection margin, shave (A3-A4) Terminal ileum, automotive leasing sales representative sections (A5) Proximal colon and cecum, automotive leasing sales representative sections (A6) Appendix, automotive leasing sales representative sections. JS (under the direct supervision of a pathologist) Additional sectioned are submitted 07/13/2021 by ENE ([id number]-[id number]) additional sections of terminal ileum The Gross Description was prepared using a voice recognition system. The report was reviewed for accuracy; however, sound-alike word errors, addition and/or deletions may occur. If there is any question about this report, please contact Client Services. PERFORMING LABORATORY: The technical component was performed by [facility], [address] [place] [id number] (CLIA# [id number]). Professional interpretation was performed by [facility], [facility], [address] [address] (CLIA# [id number]). Diagnostician: Pebbles Winston MD Pathologist Electronically Signed 07/15/2021 Copies: ~ PATIENT NAME: JOB PATEL PATHOLOGY DATE OF : [birth year] REPORT #: [id number] PHYSICIAN: BEA PATHOLOGY PCP: BROOKE TEJEDA PA-C REPORT IS CONFIDENTIAL AND NOT TO BE RELEASED WITHOUT AUTHORIZATION
--- NOTE | 2021-07-15 15:56 | NUR ---
PT AMBULATED THE HALLWAY WITH . TOLERATED WELL.
--- NOTE | 2021-07-15 16:59 | NUR ---
PT RESTING IN BED AWAKE AND WATCHING TV. C/O NAUSEA, GIVEN PHENEGRAN. DENIES FURTHER NEEDS AT THIS TIME. CALL LIGHT WITHIN REACH.
--- NOTE | 2021-07-15 19:00 | NUR ---
SHIFT REPORT RECEIVED FROM DAYSHIFT RN ANDRIY AND CAROL AT BEDSIDE. pt AWAKE AND RESTING QUIETLY IN BED, ON RA. RR EVEN AND UNLABORED, CALL LIGHT IN REACH AND IN ROOM. IV SITE WNL, FLUIDS INFUSING DIRECTED. NO NEEDS OR CONCERNS VERBALIZED AT THIS TIME.
--- NOTE | 2021-07-15 22:00 | NUR ---
ASSESSMENT COMPLETE, NO SCHEDULED MEDS. pt REPORTS 8/10 PAIN. PRN PAIN AND NAUSEA MEDICATION BOTH GIVEN AT THIS TIME, SEE EMAR. BOWEL TONES ACTIVE. ABD INCISION WNL, LASHAUN INTACT. SITE WELL APPROXIMATED. SCD'S IN PLACE. IV SITE WNL, FLUSHES EASILY. FLUIDS INFUSING DIRECTED. WILFREDO REMAINS IN ROOM AND ATTENTIVE. FRESH CLEAR ENSURE AND WATER ALSO PROVIDED.
--- NOTE | 2021-07-15 23:56 | NUR ---
CALL LIGHT ANSWERED, pt RECENTLY RETURNED FROM BATHROOM. REPORTS 7/10 PAIN, PRN PAIN AND NAUSEA MEDICATION GIVEN (SEE EMAR). NEW BAG IV FLUIDS HUNG AND INFUSING DIRECTED, IV SITE WNL,
--- NOTE | 2021-07-16 01:20 | NUR ---
ROUNDED ON pt, pt AWAKE AND RESTING IN BED. pt REPORTS PAIN AND NAUSEA BOTH IMPROVED. STATES, "OH SHE'S BEEN LAUGHING OVER THERE LIKE A LITTLE SCHOOL GIRL". NO ADDITIOANL NEEDS, CALL LIGHT AND PERSONAL BELONGINGS IN REACH.
--- NOTE | 2021-07-16 03:46 | NUR ---
ASSESSMENT COMPLETE, pt AWAKE AND RESTING IN BED. ON RA, RR EVEN AND UNLABORED. pt REPORTS TOLERABLE 4/10 PAIN, DESCRIBES IMPROVED AFTER LAST PAIN MEDICATION ADMINISTRATION, DENIES NAUSEA. REFUSES SCD'S AT THIS TIME BECAUSE SHE DOESN'T LIKE THE AVAILABLE SIZE. EDUCATION PROVIDED, pt VERBALIZED UNDERSTANDING. MIDLINE INCISION WELL APPROXIMATED, LASHAUN NOTED AND REMAIN INTACT. CALL LIGHT IN REACH.
--- NOTE | 2021-07-16 05:37 | NUR ---
PRN PAIN MEDICATION GIVEN FOR REPORTED 7/10 PAIN, SEE EMAR. KDS NEED FOR NAUSEA MEDICATION, CALL LIGHT INR EACH.
--- NOTE | 2021-07-16 08:16 | NUR ---
MORNING ASSESSMENT COMPLETED. PT C/O NAUSEA AND ABD PAIN. ZOFRAN AND TYLENOL GIVEN. APPLESAUCE AND WARM BLANKET PROVIDED. DENIES FURTHER NEEDS AT THIS TIME. CALL LIGHT WITHIN REACH.
--- NOTE | 2021-07-16 10:57 | NUR ---
PT AWAKE IN BED, AT BEDSIDE. C/O 08/12 PAIN, DILUADID GIVEN. DENIES FURTHER NEEDS AT THIS TIME. CALL LGITH WITHIN REACH.
--- NOTE | 2021-07-16 11:27 | NUR ---
PT AMBULATED UNIT x2.
--- NOTE | 2021-07-16 12:41 | NUR ---
PT RESTING AWAKE IN BED, LUNCH AT BEDSIDE. C/O NAUSEA, PHENEGRAN GIVEN. DENIES FURTHER NEEDS AT THIS TIME. CALL LIGHT WITHIN REACH.
--- NOTE | 2021-07-16 15:57 | NUR ---
P[T C/O 11/12 SHARP CRAMPING PAIN. GIVEN 4MG DILUADID PREVIOUSLY WITH NO RELIEF, REQUESTED AND GIVEN 2ND 4MG DOSE TO TITRATE TO FULL 8MG DOSE. PT STILL PASSING GAS, +BOWEL TONES, ABDOMEN SOFT, INCISION WELL APRROXIMATED, NO DRAINAGE. PT DENIES FURTHER NEEDS AT THIS TIME. CALL LIGHT WITHIN REACH.
--- NOTE | 2021-07-16 19:00 | NUR ---
SHIFT REPORT RECEIVED FROM DAYSHIFT RN ANDRIY AND CAROL, pt DROWSY BUT RESTING COMFORTABLY IN BED. RR EVEN AND UNLABORED, NO DISTRESS NOTED. pt APPEARS VERY RELAXED, WILFREDO ALSO IN ROOM. CALL LIGHT IN REACH. IV FLUIDS INFUSING.
--- NOTE | 2021-07-16 22:15 | NUR ---
IN TO GET VS, ICE WATER FILLED, ICE CHIPS FILLED
--- NOTE | 2021-07-16 22:28 | NUR ---
ASSESSMENT COMPLETE, PRN PAIN MEDICATION GIVEN FOR 8/10 PAIN, PRN NAUSEA AND PRN ANXIETY MEDICATION ALSO GIVEN, SEE EMAR. IV SITE WNL, FLUSHES EASILY FLUIDS INFUSING DIRECTED. ABD SOFT, MILD-MOD DISTENSION NOTED, ABD TENDERNESS TO RIGHT LOWER QUADRANT. LASHAUN INTACT, SITE WELL APPROXIMATED. pt RECENTLY AMBULATED 5 LAPS IN HALLWAYS, STATES, "I THINK I MIGHT HAVE OVER DONE IT WITH THE WALKING". SCD'S ON AND CALL LIGHT IN REACH.
--- NOTE | 2021-07-16 23:37 | NUR ---
ROUNDED ON pt, pt REPORTS PAIN IMPROVED BUT STILL RATES AT 6/10 FROM 8/10 PREVIOUSLY, ADDITIOANL PAIN MEDICATION GIVNE TO TITRATE TO MAX DOSE. NO FURTHER NEEDS. CALL LIGHT IN REACH.
--- NOTE | 2021-07-17 00:37 | NUR ---
pt RESTING QUIETLY IN BED, EYES OPEN AND ON RA. RR EVEN AND UNLABORED. DENIES NEEDS OR CONCERNS. CALL LIGHT IN REACH.
--- NOTE | 2021-07-17 02:25 | NUR ---
pt AWAKE AND RESTING IN BED, ON RA. NO NEEDS OR CONCERNS VERBALIZED. RR EVEN AND UNLABORED. CALL LIGHT IN REACH AND IN ROOM.
--- NOTE | 2021-07-17 06:07 | NUR ---
ASSESSMENT COMPLETE, NO ACUTE CHANGES. PRN NAUSEA AND PAIN MEDICATION GIVEN. NEW BAG IV FLUIDS HUNG ANF INFUSING DIRECTED. IV SITE WNL. SCD'S IN PLACE AND CALL LIGHT IN REACH. WARM BLANKET AND FRESH WATER AND CLEAR ENSURE PROVIDED.
--- NOTE | 2021-07-17 07:30 | NUR ---
REPORT RECIEVED FROM CHEYENNE PENA. PT RESTING IN BED, FAMILY RESTING ON COUCH. NO NEEDS IDENTIFIED AT THIS TIME. CALL LIGHT IN REACH.
--- NOTE | 2021-07-17 09:08 | NUR ---
IN ROOM TO ADMINISTER SCHEDULED MEDICATIONS, ASSESSMENT COMPLET. A+O, RA, LSC, HRR, PT COMPLAINS OF 5/10 PAIN, TOLERABLE, PRN MOTRIN ADMINISTERD. BOWEL TONES ACTIVE, ABD MILDY DISTENDED AND TENDER IN RLQ. INCISION WELL APROXIMATED, C/D/I, OPEN TO AIR. CMS INTACT, SKIN WARM AND DRY. WILL CONTINUE PLAN OF CARE. CALL LIGHT IN REACH FAMILY IN ROOM.
--- NOTE | 2021-07-17 10:57 | NUR ---
PATIENT IN BED RESTING, VISITOR IN ROOM. VITALS AND I&O'S CHARTED. PATIENT GETTING READY TO AMBULATE IN HALLWAY WITH VISITOR. CALL LIGHT IN REACH. NO FURTHER NEEDS AT THIS TIME.
--- NOTE | 2021-07-17 11:36 | NUR ---
Pt requests PRN pain medication and zofran administered, both PO. Every other staple removed from midline incision, pt tolerates well. IVF infusing WNL. Pt tolerating full liquids well.
--- NOTE | 2021-07-17 13:15 | NUR ---
ROUNDED ON PT. PT RESTING IN BED WITH EYES CLOSED. NO NEEDS AT THIS TIME, CALL LIGHT IN REACH.
--- NOTE | 2021-07-17 15:00 | NUR ---
PATIENT IN BED RESTING WITH EYES CLOSED AND DID NOT WANT TO BE WOKEN UP. CHECKED WITH RN AND RN GAVE THE OKAY TO SKIP THIS SET OF VITALS. CALL LIGHT IN REACH. NO FURTHER NEEDS AT THIS TIME.
--- NOTE | 2021-07-17 15:58 | NUR ---
Call light answered, pt requests PRN pain and nausea medications, 1 tab norco and PO promethazine administered. Pt rates pain 7/10 to incision. Pt resting in bed, watching tv, using phone and coloring. Pt family at bedside, attentive to patient. Made plan for shower/linen change. No further needs
--- NOTE | 2021-07-17 16:30 | NUR ---
PATIENT UP TO SHOWER, IND. SHOWER SUPPLIES PROVIDED. LINENS CHANGED. VISITOR IN ROOM. CALL LIGHT IN REACH. NO FURTHER NEEDS AT THIS TIME.
--- NOTE | 2021-07-17 17:42 | NUR ---
IV reconnected to patient after shower. Pt resting in bed, tolerating soft diet, family in room. Pt states no needs or pain at this time. Incision visualized, slight redness noted around staple insert sites, otherwise grossly intact, warm and dry.
--- NOTE | 2021-07-17 18:42 | NUR ---
PATIENT SITTING UP IN BED WATCHING TV. VISITORS IN ROOM. VITALS AND I&O'S CHARTED. CALL LIGHT IN REACH. NO FURTHER NEEDS AT THIS TIME.
--- NOTE | 2021-07-17 19:15 | NUR ---
SHIFT REPORT RECEIVED FROM DAYSHIFT JEAN CORTÉS/STUDENT JEAN RAY. pt AMBULATING WITH FAMILY IN ROOM. APPEARS IN GOOD SPIRITS, DENIES NEEDS OR CONCERNS AT THIS TIME. WILL MONITOR FOR CHANGES.
--- NOTE | 2021-07-17 20:39 | NUR ---
call light answered, pt requesting pain and nausea medication. both given, see emar. per emar, motrin to be tried first, pt verbalized frustration in this issue, stating, "they said the norco would help better, but it didn't help drop it up to a tolerable level. it dropped it down from an 8 to a 6 for about 2 hours, then it started climbing again". snack provided with evening meds. iv site infiltrated, iv fluids stopped and iv site dc'd, catheter tip intat. site elevated, pt educated on iv infiltration, d5lr was infusing at time of infusion. will monitor. pt declines scd's, call light in [facility]. will monitor. pt currently reports 09/11.
--- NOTE | 2021-07-17 21:46 | NUR ---
pt VERY EMOTIONAL FROM NEW IV, STARTED BY ZEESHAN, FBC RN, 22G TO RIGHT FOREARM. REPORTS 9/10 PAIN, PRN NORJARET GIVENM, SEE EMAR. CALL LIGHT IN REACH. IV FLUIDS RESUMED PER MD ORDERS, IV SITE WNL. WARM COMPRESS TO OLD IV SITE, PER TELEPHARMACY.
--- NOTE | 2021-07-17 23:37 | NUR ---
ROUNDED ON pt, pt DROWSY, BUT AWAKE AND RESTING IN BED. NEW IV SITE REMAINS WNL, FLUIDS INFUSING DIRECTED. pt's ONLY REQUEST WAS HEAT PACK FOR ABD, PROVIDED. NO ADDITIONAL NEEDS, UPON REENTERING ROOM, pt WAS RESTING IN BED WITH EYES CLOSED AND RR EVEN AND UNLABORED. NO DISTRESS NOTED. WILL MONITOR FOR CHANGES.
--- NOTE | 2021-07-18 01:46 | NUR ---
rounded on pt, pt awake and reports 7/10 pain, prn pain and nausea medication both given, see emar. iv sitre wnl, fluids ifnsuing as directed. assessment complete, no acute changes. when asked if prn norco helped, pt states, "very very little. it did help more than the ibuprofen". scd's in place, call light in reach.
--- NOTE | 2021-07-18 03:32 | NUR ---
pt REPORTS PAIN IMPROVED, SNACK PROVIDED. IV SITE WNL, FLUIDS IFNUSING DIRECTED. NO FURTHER NEEDS. CALL LIGHT IN REACH.
--- NOTE | 2021-07-18 05:30 | NUR ---
pt RESTING IN BED, ON RA. RR EVEN AND UNLABORED. NO DISTRESS NOTED. CALL LIGHT IN REACH.
--- NOTE | 2021-07-18 06:50 | NUR ---
ROUNDED ON pt, pt AWAKE AND RESTING IN BED. STAFF IN ROOM COLLECTING VS. IV SITE WNL, FLUIDS INFUSING DIRECTED. CALL LIGHT IN REACH.
--- NOTE | 2021-07-18 07:00 | NUR ---
PER CHART, pt's LAST RECORDED BM WAS 07/05/21. DR KNOX MADE AWARE, NO NEW ORDERS RECEIVED. BOWEL TONES ACTIVE AND pt REPORTS PASSING GAS.
--- NOTE | 2021-07-18 07:53 | NUR ---
Report received. Pt is resting in bed. at the bedside. Pt will be discharging home today. Pain management discussed. Pt requested Dilaudid and Zofran. Administered promptly.
[2021-07-18] MEDS ORDERED: DILAUDID4 MG PO (08:26)
[2021-07-18] MEDS ORDERED: ONDANSETRON HCL4 MG PO (08:27)
[2021-07-18] MEDS ORDERED: PROMETHAZINE HC25 M1 PO (08:28)
--- NOTE | 2021-07-18 10:16 | NUR ---
legal administrative secretary is working on scheduling an appointment with GI in [place]. Pt is resting in bed. Ate half of her breakfast. Pain medication is effective, along with Zofran.
--- NOTE | 2021-07-18 10:58 | NUR ---
PATIENT UP TO BATHROOM AND BACK TO BED, INDEPENDENTLY. VITALS AND I&O'S CHARTED. CALL LIGHT IN REACH. NO FURTHER NEEDS AT THIS TIME.
--- NOTE | 2021-07-18 11:15 | NUR ---
Discharge paperwork explained to Pt and her . Pt has 3 follow-up appointments set up. Pt has paper prescriptions in hand. Remaining isauro removed as per Dr Sommer's order. Pt tolerated fine. Incision is BRIEFCASE SEWER. Pt medicated for pain and nausea.
--- NOTE | 2021-07-18 11:20 | NUR ---
Spoke with pt and boyfriend. She has a follow up appt. with gastro. Denies needs for dc to home.
--- NOTE | 2021-07-18 11:22 | NUR ---
Dr Sommer notified about patient returned labs- culture of central line and CRP.
--- NOTE | 2021-07-19 06:09 | DS ---
[facility] [address], [place] [address] Signed ADMISSION DATE: 07/01/2021 DISCHARGE DATE: 07/18/2021 FINAL DIAGNOSIS: Terminal ileum Crohn disease. PROCEDURES: 1. Resection of the terminal ileum and cecum. 2. CT scan of abdomen and pelvis. HISTORY: Carlos is a 25-year-old female, otherwise quite healthy. She had 6-7 months of increasing right lower quadrant abdominal pain. She got to where she could need solid food. She was down to liquid food. She finally came to the emergency room for evaluation. CT scan of the abdomen and pelvis was performed, it was very concerning for Crohn disease involving the last 5 cm or so over the terminal ileum. I have been asked to admit her as a general surgeon on-call. HOSPITAL COURSE: Carlos was admitted as above and started on IV fluids and hydrated. We gave her daily IV Solu-Medrol. Despite this, she could not resolve the inflammatory changes in fibrosis of her terminal ileum. Consequently, she could not increase her diet. We finally took her to surgery on 07/10/2021 for a standard resection of the terminal ileum and the cecum. We put the bowel back together and hand-sewn in two layers with absorbable suture. Her intra and postop course overall been uncomplicated. She has been very anxious and that has been something that is we have worked with each day. She has been on a soft diet, but obviously is not tolerating some more solid foods. She is doing fine with her more liquid foods. She is passing flatus now for several days. She is yet to have a bowel movement, but again she is not eating much. Her abdominal exam is now markedly improved. She is completely soft flat with only very minimal tenderness in the right lower quadrant as expected after surgery. Her incision is healing well. We are going to remove the rest of her isauro currently. She has done well with Dilaudid both IV and p.o. along with some Phenergan and Zofran. She has used hydrocodone in the past, but prefers the Dilaudid on this occasion. Due to her progress, we are going to be discharging her to home with her boyfriend and her family. DISCHARGE PLANS AND MEDICATIONS: Carlos will be discharged to home with Dilaudid 4 mg tablets. She can take one tablet every 4 hours p.r.n. for severe postoperative pain, we will dispense 30 tablets with no refills. She can use Tylenol p.r.n. toxx-zm-yiixefwy postoperative pain. She can purchase this dviw-[id number]-wexjvir. She has been written for Zofran 4 mg one to two tablets Electronically Signed By: WILFREDO KNOX MD 07/19/21 0609 PATIENT NAME: CARLOS PATEL DISCHARGE SUMMARY DATE OF : [birth year] REPORT #: [id number] PHYSICIAN: WILFREDO KNOX MD PCP: BROOKE TEJEDA PA-C REPORT IS CONFIDENTIAL AND NOT TO BE RELEASED WITHOUT AUTHORIZATION [address] [address] Signed p.o. q.6 hours p.r.n. for nausea and vomiting. We will dispense 10 tablets with two refills. We will give her Phenergan 25 mg one tablet p.o. q.6 hours p.r.n. for nausea and vomiting with dispense #10 tablets with two refills. She does use albuterol at home as needed for asthma, she is welcome to use that. She will continue her soft diet at home and advance that as tolerated. She will leave her incision open to air. She can shower and bathe as usual. If she wants to use a little skin lotion, it is fine. She should not do any heavy pushing, pulling, or lifting over about 20 pounds. She is currently unemployed. She works at our local [employer]. She needs to wait and allow this to heal up for a couple of months before re-applying for work. In the meantime, her information has been sent up to the GI group in [place], [place], apparently they have accepted her and they know she has a new diagnosis of Crohn disease. She needs to see them within a week or two of discharge from the hospital. I have made it very clear to her boyfriend and to herself that medicine is the mainstay of treatment for Crohn disease. Her chance of getting recurrent Crohn's in the ileum is very high if she does not start medication. I will see her back in my office in 7 to 10 days for surgical followup. She has expressed understanding and agrees with the above plan. She will also follow up with her primary care provider in the next 1-3 weeks as well. Wilfredo Knox MD ALB/GRIFFINL /[id number] cc: Mana Cortez Patient Chart MD Alphonso Garcia MD Copies: WILFREDO KNOX MD Electronically Signed By: WILFREDO KNOX MD 07/19/21 0609 PATIENT NAME: CARLOS PATEL DISCHARGE SUMMARY DATE OF : [birth year] REPORT #: [id number] PHYSICIAN: WILFREDO KNOX MD PCP: BROOKE TEJEDA PA-C REPORT IS CONFIDENTIAL AND NOT TO BE RELEASED WITHOUT AUTHORIZATION [facility] [address] [place] [address] Signed ALPHONSO BLANCO MD ~ Electronically Signed By: WILFREDO KNOX MD 07/19/21 0609 PATIENT NAME: CARLOS PATEL DISCHARGE SUMMARY DATE OF : [birth year] REPORT #: [id number] PHYSICIAN: WILFREDO KNOX MD PCP: BROOKE TEJEDA PA-C REPORT IS CONFIDENTIAL AND NOT TO BE RELEASED WITHOUT AUTHORIZATION
== END 2021-07-18 12:30 | disposition home or self-care (01) | DRG 330 ==
LOC: ED 09:34 → MS 09:35
PROVIDERS: ADMIT Colon & Rectal Surgery; ATTEND Colon & Rectal Surgery
PROC: 0DTJ4ZZ Resection of Appendix, Percutaneous Endoscopic Approach (ICD-10-PCS; principal; 2021-07-10 10:18)
PROC: 0DTH4ZZ Resection of Cecum, Percutaneous Endoscopic Approach (ICD-10-PCS; 2021-07-10 10:18)
DX: K50.012 Crohn's disease of small intestine with intestinal obstruction (principal); E46 Unspecified protein-calorie malnutrition; Z20.822 Contact with and (suspected) exposure to COVID-19; J45.909 Unspecified asthma, uncomplicated; Z87.42 Personal history of other diseases of the female genital tract; G43.909 Migraine, unspecified, not intractable, without status migrainosus; Z98.890 Other specified postprocedural states; Z88.8 Allergy status to other drugs, medicaments and biological substances; Z91.040 Latex allergy status; Z91.018 Allergy to other foods; Z79.899 Other long term (current) drug therapy; E87.6 Hypokalemia; K52.9 Noninfective gastroenteritis and colitis, unspecified; F41.9 Anxiety disorder, unspecified; Z68.28 Body mass index [BMI] 28.0-28.9, adult
CPT/HCPCS: 00840; 36415; 64488; 71045; 74177; 76705; 76942; 80048; 80053; 80061; 81001; 83033; 83690; 83735; 84100; 84132; 84134; 84703; 85025; 85610; 85651; 85730; 86140; 86704; 86705; 86706; 87040; 87045; 87070; 87075; 87205; 87340; 87502; 94640; 94760; 96374; 96376; 99285-25; A9270; A9270-GY; C9113; C9803; J0131; J0690; J0696; J0780; J1100; J1170; J1650; J1790; J1885; J2001; J2060; J2250; J2405; J2550; J2704; J2795; J2920; J3430; J3480; J7030; J7060; J7121; Q9967; U0003

== ENCOUNTER 2021-11-24 22:23 | Emergency (ER) | payer OTHER ==
[~2021-11-24] VITALS: Ht 162.6 cm; Wt 77.7 kg
[~2021-11-24 22:23] MED LIST changes: +DILAUDID4 MG PO; +FLOVENT HFA10.6 GM INH; +ONDANSETRON HCL4 MG PO; +PROMETHAZINE HC25 M1 PO
--- OUTSIDE RECORDS SUMMARY | 2021-11-24 22:26 | XMS ---
PreManage Notification: JOB PATEL Security Medical Technologist Microbiology Events No recent Security Events currently on file CRITERIA MET - PDMP - Group Notification CARE PROVIDERS BROOKE TEJEDA Physician Spiritual Minister Current PHONE: [phone] [facility] has no Care Guidelines for this patient. Care History Medical/Surgical 08/16/[address] [facility] - PATIENT HAS AN OBILANAN-DR ALBERTS- NEXT APT 09/10/18. ENate VISIT COUNT (12 MO.) 2 [facility]. TOTAL 2 NOTE: Visits indicate total known visits. ED/UCC VISIT TRACKING (12 MO.) 11/24/2021 22:24 [facility] TYPE: Emergency COMPLAINT: - ABD PAIN, DIARRHEA, VOMITING 07/01/2021 09:34 [facility] TYPE: Emergency COMPLAINT: - VOMITING, ABD PAIN INPATIENT VISIT TRACKING (12 MO.) 07/01/2021 14:42 [facility] TYPE: Medical Surgical COMPLAINT: - ILEITIS, BOWEL OBSTRUCTION DIAGNOSES: - Unspecified protein-calorie malnutrition - Migraine, unspecified, not intractable, without status migrainosus - Other senior care (current) drug therapy - Body mass index [BMI] 28.0-28.9, adult - Other specified postprocedural states - Unspecified asthma, uncomplicated - Latex allergy status - Noninfective gastroenteritis and colitis, unspecified - Crohn's disease of small intestine with intestinal obstruction - Allergy to other foods - Allergy status to other drugs, medicaments and biological substances - Anxiety disorder, unspecified - Anxiety disorder, unspecified - Hypokalemia - Unspecified asthma, uncomplicated - Hypokalemia - Latex allergy status - Allergy to other foods - Personal history of other diseases of the female genital tract - Contact with and (suspected) exposure to COVID-19 - Unspecified protein-calorie malnutrition - Other termite inspector (current) drug therapy - Noninfective gastroenteritis and colitis, unspecified - Contact with and (suspected) exposure to COVID-19 - Personal history of other diseases of the female genital tract - Crohn's disease of small intestine with intestinal obstruction - Allergy status to other drugs, medicaments and biological substances - Crohn's disease of small intestine without complications - Other specified postprocedural states - Migraine, unspecified, not intractable, without status migrainosus [email or web address]
[2021-11-24] MEDS ORDERED: METOCLOPRAMIDE10 MG PO (22:51)
[2021-11-24] MEDS ORDERED: HUMIRA PEN40 MG/0.4 SUB-Q (22:52)
[2021-11-24] MEDS ORDERED: PROZAC40 MG PO (22:53)
[2021-11-25] MEDS ORDERED: PREDNISONE20 MG PO (02:06)
[2021-11-25] MEDS ORDERED: PEPCID20 MG PO (02:06)
== END 2021-11-25 02:24 | disposition home or self-care (01) ==
LOC: ED 22:23
DX: K50.90 Crohn's disease, unspecified, without complications (principal); J45.909 Unspecified asthma, uncomplicated; G43.909 Migraine, unspecified, not intractable, without status migrainosus; Z88.7 Allergy status to serum and vaccine; Z88.8 Allergy status to other drugs, medicaments and biological substances; Z91.041 Radiographic dye allergy status; Z79.899 Other long term (current) drug therapy
CPT/HCPCS: 36415; 74177; 80053; 81001; 83605; 83690; 84703; 85025; 87088; 96375; 99284-25; A9270; J1790; J2405; J2543; J2930; J3010; Q9967

== ENCOUNTER 2024-01-02 07:56 | Day surgery (SDC) | payer OTHER ==
[~2024-01-02] VITALS: Ht 162.6 cm; Wt 73.2 kg
[~2024-01-02 07:56] MED LIST changes: +CELEXA20 MG PO; +HEParin SOD (PORCINE) 5,000 UNIT/0.5 ML SYR SUB-Q SCH; +HUMIRA PEN40 MG/0.4 SUB-Q; +HYDROXYZINE HCL10 MG PO; +IBLOOD GLUCOSE TEST STRIP 1 EA TEST VI PRN; +LACTATED RINGER'S 1,000 ML IV SCH; +LIDOCAINE HCL 1% 5 ML SDV INJ ONE; +METOCLOPRAMIDE10 MG PO; +PEPCID20 MG PO; +PROZAC40 MG PO
[2024-01-02 08:17] VITALS: BP 107/60
[2024-01-02 08:26] LABS: HEMATOCRIT 40.7 % (35.0-50.0); HEMOGLOBIN 13.8 g/dL (12.0-18.0); MCH 29.6 (27-36); MCHC 33.9 g/dl (30-36); MCV 87.3 fl (81-99); RBC 4.66 M/ul (4.3-5.7)
--- NOTE | 2024-01-02 08:33 | NUR ---
WILFREDO AT BS. BLOOD DRAWN FROM IV AND TAKEN TO LAB.
[2024-01-02] MEDS ORDERED: SEVOFLURANE 250 ML BTL INH ONE (09:12)
[2024-01-02] MEDS ORDERED: MIDAZOLAM HCL 2 MG/2 ML VIAL ONE (09:28)
--- NOTE | 2024-01-02 09:34 | NUR ---
HAS BEEN UP TO BR. SCDS ON IV PATENT. MARKET RELATIONSHIP MANAGER IN TO TALK WITH PT AND HAS USED INHALER AT THIS TIME.
[2024-01-02] MEDS ORDERED: DEXAMETHASONE SOD PHOS 4 MG/ML VIAL ONE (09:48)
[2024-01-02] MEDS ORDERED: dexmedeTOMIDine HCl 200 MCG/2 ML VIAL ONE (09:48)
[2024-01-02] MEDS ORDERED: ondansetron HCL 4 MG/2 ML VIAL ONE (09:48)
[2024-01-02] MEDS ORDERED: propofoL 200 MG/20 ML VIAL ONE (09:48)
[2024-01-02] MEDS ORDERED: ROCURONIUM BROMIDE 50 MG/5 ML SYR ONE (09:48)
[2024-01-02] MEDS ORDERED: KETOROLAC TROMETHAMINE 30 MG/ML VIAL ONE (09:48)
[2024-01-02] MEDS ORDERED: fentaNYL citrate 100 MCG/2 ML VIAL ONE (09:49)
[2024-01-02] MEDS ORDERED: ACETAMINOPHEN 1,000 MG/100 ML VIAL ONE (09:49)
[2024-01-02] MEDS ORDERED: LIDOCAINE HCL 2% 5 ML SDV ONE (09:56)
[2024-01-02] MEDS ORDERED: LIDOCAINE HCL 2% 20 MG/ML VIAL INJ ONE (09:57)
[2024-01-02] MEDS ORDERED: SUGAMMADEX SODIUM 200 MG/2 ML ML ONE (10:03)
[2024-01-02] MEDS ORDERED: LACTATED RINGER'S 1,000 ML IV ONE (11:05)
[2024-01-02] MEDS ORDERED: ondansetron HCL 4 MG/2 ML VIAL IV PRN ×2 (11:30→12:15)
[2024-01-02] MEDS ORDERED: droPERidol 5 MG/2 ML VIAL IV PRN (11:30)
[2024-01-02] MEDS ORDERED: fentaNYL citrate 50 MCG/ML SDV IV PRN (11:30)
[2024-01-02] MEDS ORDERED: IBLOOD GLUCOSE TEST STRIP 1 EA TEST VI PRN (11:30)
[2024-01-02] MEDS ORDERED: HYDROmorphone HCL 1 MG/ML SYR IV PRN (11:30)
[2024-01-02] MEDS ORDERED: NALOXONE HCL 0.4 MG SYR IV PRN ×2 (11:30→12:15)
--- NOTE | 2024-01-02 11:43 | NUR ---
01/02/24 [address] [place] PATIENT ARRIVES IN PACU WITH ORAL AIRWAY IN PLACE. SHE IS NOT RESPONSIVE TO MY VOICE ON ARRIVAL. PATIENT OPENS HER EYES AND HAS DIFFICULTY FOLLOWING INSTRUCTIONS TO OPEN HER MOUTH TO ALLOW FOR ORAL AIRWAY REMOVED. AFTER SOME ENCOURAGEMENT, PATIENT OPENS HER MOUTH AND ORAL AIRWAY IS REMOVED. PATIENT IS SHIVERING. SHE CONFIRMS BEING COLD. KAYLI HUGGER ON WARM. PATIENT IS TEARFUL AND ASKS "WHERE'S MY HUBBY?" PATIENT IS ENCOURAGED, BUT IS DIFFICULT TO CONSOLE.
[2024-01-02 12:14] VITALS: BP 104/65
[2024-01-02] MEDS ORDERED: SIMETHICONE 125 MG TABLET CHEWABLE PO PRN (12:15)
[2024-01-02] MEDS ORDERED: MAGNESIUM HYDROXIDE/AL HYDROX 30 ML CUP PO PRN (12:15)
[2024-01-02] MEDS ORDERED: METOCLOPRAMIDE HCL 10 MG/2 ML SDV IV PRN (12:15)
[2024-01-02] MEDS ORDERED: OXYCODONE/APAP 5/325 TAB PO PRN (12:15)
[2024-01-02] MEDS ORDERED: MORPHINE SULFATE 10 MG/ML VIAL IV PRN (12:15)
[2024-01-02] MEDS ORDERED: FAMOTIDINE 20 MG TAB PO PRN (12:15)
--- NOTE | 2024-01-02 12:16 | NUR ---
ARRIVED VERY TEARFUL S O AT BEDSIDE. HAS BEEN EMOTIONAL.
[2024-01-02] MEDS ORDERED: SIMETHICONE 125 MG TABLET CHEWABLE PO SCH (13:00)
--- NOTE | 2024-01-02 13:49 | NUR ---
AMB IN HALLWAY TO BR VOIDS 350 MLS PINKISH YELLOW URINE. TOLERATED WELL. RATES PAIN 3/10 PAIN MEDICINE WORKING. CHANGE BANDAID ABOVE UNBILICUS SATURATED RED DRAINAGE TO A LARGE BANDAID. WANTS TO GO HOME.
[2024-01-02] MEDS ORDERED: IBUPROFEN 800 MG TAB PO SCH (14:00)
--- NOTE | 2024-01-08 16:37 | PATH ---
[facility] [address], [place] [address] Signed SPECIMEN(S): A RT FALLOPIAN TUBE, ECTOPIC SPECIMEN SOURCE: A. RT FALLOPIAN TUBE, ECTOPIC CLINICAL HISTORY: Ectopic . FINAL PATHOLOGIC DIAGNOSIS: Right fallopian tube, ectopic : - Benign fimbriated oviduct containing immature chorionic villi consistent with clinical ectopic . COMMENT: There is no evidence of complete molar . JVR:dks MICROSCOPIC EXAMINATION: Histologic sections of all submitted blocks are examined by light microscopy. These findings, together with the gross examination, support the pathologic diagnosis. A p57 immunostain is performed with appropriate controls on block A2 and is positive within the villous cytotrophoblasts and stromal cells (nuclear), supporting the diagnosis. JVR:dks GROSS DESCRIPTION: The specimen, labeled and designated "Karli Patel, per requisition right fallopian tube with ectopic," is received in formalin and consists of a 5.3 x 1.9 x 1.5 cm fallopian tube with attached fimbriated ends. The serosal surface is meza-pink with a wall defect in the center of the tube measuring approximately 1.5 x 1.5 cm. There are multiple paratubal cysts primarily around the fimbriated averaging 0.4 cm in greatest dimension. The specimen is serially sectioned revealing a dilated lumen with chorionic villi present. Radio Antenna Installer sections are submitted in cassettes A1-A3 with fimbriated ends embedded in cassette A1. AA (under the direct supervision of a pathologist) The Gross Description was prepared using a voice recognition system. The report was reviewed for accuracy; however, sound-alike word errors, addition and/or deletions may occur. If there is any PATIENT NAME: JOB PATEL PATHOLOGY DATE OF : [birth year] REPORT #: [id number] PHYSICIAN: [facility] PATHOLOG[facility] PCP: BROOKE TEJEDA PA-C REPORT IS CONFIDENTIAL AND NOT TO BE RELEASED WITHOUT AUTHORIZATION [facility] [address], [place] [address] Signed question about this report, please contact Client Services. ADDITIONAL NOTES: Immunohistochemical and/or in situ hybridization studies were performed on this case with the appropriate positive controls that react as expected. This test was developed and its performance characteristics determined by [facility]. It has not been cleared or approved by the U.S. Food and Drug Administration. The FDA has determined that such clearance or approval is not necessary. This test is used for clinical purposes. It should not be regarded as investigational or for research. [facility] is certified under the Clinical Laboratory Improvement Amendments of 1988 (CLIA) as qualified to perform high complexity clinical laboratory testing. This assay has not been validated for specimens that have been decalcified. PERFORMING LABORATORY: Technical component was performed by [facility], [address] [place] [id number] (CLIA# [id number]). Professional interpretation was performed by [facility] - [facility], [address] [place] [id number] (CLIA#: [id number]). Diagnostician: Dre Winkler MD Pathologist Electronically Signed 01/08/2024 Copies: ~ PATIENT NAME: JOB PATEL PATHOLOGY DATE OF : 95 REPORT #: [id number] PHYSICIAN: BEA PATHOLOGY PCP: BROOKE TEJEDA PA-C REPORT IS CONFIDENTIAL AND NOT TO BE RELEASED WITHOUT AUTHORIZATION
== END 2024-01-02 13:35 | disposition home or self-care (01) ==
LOC: DS 07:56
PROVIDERS: ATTEND Obstetrics & Gynecology
PROC: 10T28ZZ Resection of Products of Conception, Ectopic, Via Natural or Artificial Opening Endoscopic (ICD-10-PCS; principal; 2024-01-02 10:00)
PROC: 0UT58ZZ Resection of Right Fallopian Tube, Via Natural or Artificial Opening Endoscopic (ICD-10-PCS; 2024-01-02 10:00)
DX: O00.101 Right tubal pregnancy without intrauterine pregnancy (principal); O99.611 Diseases of the digestive system complicating pregnancy, first trimester; K50.90 Crohn's disease, unspecified, without complications; O99.511 Diseases of the respiratory system complicating pregnancy, first trimester; J45.909 Unspecified asthma, uncomplicated; Z3A.01 Less than 8 weeks gestation of pregnancy; Z79.899 Other long term (current) drug therapy; Z91.040 Latex allergy status; Z88.8 Allergy status to other drugs, medicaments and biological substances; Z87.891 Personal history of nicotine dependence
CPT/HCPCS: 00840; 36415; 85027; 88305; 88342; A9270; J0131; J1100; J1644; J1885; J2003; J2250; J2405; J2704; J3010; J3490; J7121

== ENCOUNTER 2024-04-08 11:38 | Emergency (ER) | payer OTHER ==
[~2024-04-08] VITALS: Ht 162.6 cm; Wt 71.7 kg
[~2024-04-08 11:38] MED LIST changes: -HEParin SOD (PORCINE) 5,000 UNIT/0.5 ML SYR SUB-Q SCH; -IBLOOD GLUCOSE TEST STRIP 1 EA TEST VI PRN; -LACTATED RINGER'S 1,000 ML IV SCH; -LIDOCAINE HCL 1% 5 ML SDV INJ ONE
--- OUTSIDE RECORDS SUMMARY | 2024-04-08 11:42 | XMS ---
PreManage Notification: JOB PATEL Security Tire Sorter Events No recent Security Events currently on file CRITERIA MET - Group Notification CARE PROVIDERS -, [facility] Dentist: Cash Manager [facility] PHONE: [phone] -[place]- Dentist: Cash Manager [facility] PHONE: [phone] [facility] has no Care Guidelines for this patient. Care History Medical/Surgical 08/16/2018 [facility] [place] [facility] \R\- PATIENT HAS AN OBILANAN-DR ALBERTS- NEXT APT 09/10/18. E.D. VISIT COUNT (12 MO.) 1 [facility] 1 [facility] TOTAL 2 NOTE: Visits indicate total known visits. ED/UCC VISIT TRACKING (12 MO.) 04/08/2024 11:38 [facility] TYPE: Emergency COMPLAINT: - VOMITING,9WKS 08/03/2023 11:38 [facility] TYPE: Emergency COMPLAINT: - vomiting DIAGNOSES: - Bacterial foodborne intoxication, unspecified INPATIENT VISIT TRACKING (12 MO.) No inpatient visits to display in this time frame [email or web address]
[2024-04-08] MEDS ORDERED: SODIUM CHLORIDE 0.9% 1,000 ML IV ONE (12:00)
[2024-04-08] MEDS ORDERED: PANTOPRAZOLE SODIUM 40 MG/10 ML VIAL IV ONE (12:00)
[2024-04-08 12:02] LABS: BASOPHILS 0.4 % (0-2); EOSINOPHILS 0.3 % (0-6); HEMATOCRIT 42.1 % (35.0-50.0); HEMOGLOBIN 14.5 g/dL (12.0-18.0); LYMPHOCYTES 18.1 % (24-44); MCH 30.1 (27-36); MCHC 34.5 g/dl (30-36); MCV 87.2 fl (81-99); NEUTROPHILS 75.2 % (39-80); PLATELET COUNT 231 K/uL (140-440); RBC 4.83 M/ul (4.3-5.7); RDW 13.6 (10.5-15.0)
[2024-04-08 12:12] LABS: MAGNESIUM 1.8 mg/dL (1.8-2.4)
[2024-04-08 12:32] LABS: LACTIC ACID, BLOOD 1.6 mmol/L (0.4-2.0)
[2024-04-08] MEDS ORDERED: PYRIDOXINE HCL 100 MG/ML VIAL IV ONE (13:30)
[2024-04-08] MEDS ORDERED: METOCLOPRAMIDE HCL 10 MG/2 ML SDV IV ONE (13:30)
[2024-04-08 13:46] LABS: BILIRUBIN, URINE NEGATIVE (negative); BLOOD/HGB, URINE SMALL (Negative); KETONE, URINE SMALL (Negative); LEUK ESTERASE, URINE NEGATIVE (negative); NITRITE, URINE NEGATIVE (negative)
[2024-04-08 13:54] LABS: BACTERIA, URINE 1+ /hpf (negative); CASTS, URINE HYALINE 2+ \\lpf; CRYSTALS, URINE NONE SEEN (0-1+); EPITHELIAL CELLS, URINE SQUAMOUS 3+ /lpf (0-1+); REFLEX CULTURE, URINE No (No); WHITE BLOOD CELLS, URINE 0-1 /HPF (0-5)
[2024-04-08 13:55] LABS: COLLECTION TYPE, URINE CLEAN CATCH
[2024-04-08] MEDS ORDERED: droPERidol 5 MG/2 ML VIAL IV ONE (14:30)
[2024-04-08 15:47] LABS: ALBUMIN 3.9 g/dL (3.4-5.0); ALBUMIN/GLOBULIN RATIO 1.03 (1.1-2.4); ANION GAP 16.6 (7-21); BILIRUBIN, TOTAL 0.4 ng/dL (0.2-1.0); BUN/CREATININE RATIO 8.21 (6.0-28.6); CALCIUM 9.3 mg/dL (8.5-10.1); CREATININE, SERUM 0.73 mg/dL (0.55-1.02); POTASSIUM 3.6 mmol/L (3.5-5.1); PROTEIN, TOTAL 7.7 g/dL (6.4-8.2)
[2024-04-08] MEDS ORDERED: VITAMIN B-625 MG PO (16:32)
[2024-04-08 16:40] VITALS: BP 99/66
== END 2024-04-08 16:42 | disposition home or self-care (01) ==
LOC: ED 11:38
PROVIDERS: Emergency Medicine
DX: O21.9 Vomiting of pregnancy, unspecified (principal); O99.511 Diseases of the respiratory system complicating pregnancy, first trimester; J45.909 Unspecified asthma, uncomplicated; Z3A.09 9 weeks gestation of pregnancy; Z88.7 Allergy status to serum and vaccine; Z91.040 Latex allergy status; Z88.8 Allergy status to other drugs, medicaments and biological substances; Z91.018 Allergy to other foods; Z79.899 Other long term (current) drug therapy
CPT/HCPCS: 36415; 80053; 81001; 83605; 83690; 83735; 85025; 96361; 96374; 96375; 99284-25; J1790; J2470; J2765; J3415; J7030

== ENCOUNTER 2024-11-03 19:20 | Inpatient (IN) | payer OTHER ==
[~2024-11-03 19:20] MED LIST changes: +VITAMIN B-625 MG PO
[2024-11-04] MEDS ORDERED: TERBUTALINE SULFATE 1 MG/ML AMP SUB-Q PRN (06:15)
[2024-11-04] MEDS ORDERED: LIDOCAINE HCL 1% 30 ML SDV INJ PRN (06:15)
[2024-11-04] MEDS ORDERED: MAGNESIUM HYDROXIDE/AL HYDROX 30 ML CUP PO PRN ×2 (06:15→17:45)
[2024-11-04] MEDS ORDERED: LACTATED RINGER'S 1,000 ML IV SCH (06:15)
[2024-11-04] MEDS ORDERED: CALCIUM CARBONATE 500 MG CHEW PO PRN ×2 (06:15→17:45)
[2024-11-04] MEDS ORDERED: LACTATED RINGER'S 1,000 ML IV PRN (06:15)
[2024-11-04] MEDS ORDERED: OXYTOCIN/0.9 % SODIUM CHLORIDE 30 UNITS/500 ML BAG IV SCH (06:15)
[2024-11-04 06:24] VITALS: BP 112/77
[2024-11-04 06:41] LABS: AMPHETAMINES, URINE NEGATIVE (NEGATIVE); BARBITURATES, URINE NEGATIVE (NEGATIVE); BENZODIAZEPINE, URINE NEGATIVE (NEGATIVE); CANNABINOID, URINE POSITIVE (NEGATIVE); COCAINE, URINE NEGATIVE (NEGATIVE); ECSTASY, URINE NEGATIVE (NEGATIVE); FENTANYL, URINE NEGATIVE (NEGATIVE); METHADONE, URINE NEGATIVE (NEGATIVE); OPIATES, URINE NEGATIVE (NEGATIVE); OXYCODONE, URINE NEGATIVE (NEGATIVE); PHENCYCLIDINE, URINE NEGATIVE (NEGATIVE)
[2024-11-04 07:00] LABS: MCH 23.8 PG (25.6-32.2); MCHC 31.3 g/dL (32.2-35.5); MCV 76.0 fL (79.4-94.8); RBC 4.25 M/uL (3.93-5.22)
[2024-11-04 07:28] LABS: ABO A; ANTIBODY SCREEN NEGATIVE; RH POSITIVE
[2024-11-04 07:29] LABS: IS CROSSMATCH COMPATIBLE
[2024-11-04] MEDS ORDERED: ROPIVACAINE 0.2% 200 ML BAG ONE (11:38)
[2024-11-04] MEDS ORDERED: fentaNYL citrate 100 MCG/2 ML VIAL ONE (11:38)
[2024-11-04] MEDS ORDERED: LACTATED RINGER'S 500 ML IV PRN (11:45)
[2024-11-04] MEDS ORDERED: ePHEDrine sulfate 5 MG/ML SYRINGE IV PRN (11:45)
[2024-11-04] MEDS ORDERED: LACTATED RINGER'S 2,000 ML IV ONE (11:45)
[2024-11-04] MEDS ORDERED: ROPIVACAINE 0.2% 200 ML BAG EPIDURAL SCH (11:45)
--- NOTE | 2024-11-04 12:57 | PR ---
[facility] [address], [place] [address] Signed Progress Notes IP Datetime Report Generated by CPLona: 11/04/2024 12:57 PROGRESS NOTES: [id number] Impression: Normal Progression of Labor Procedures: Artificial ROM; Sterile Vag Exam Plan: Continue Present Management; Anticipate Vaginal Delivery Informed Consent Obtain: Vaginal Delivery VITAL SIGNS: [id number] Vital Signs: Reviewed; Within Normal Limits EXAM: [id number] Dilatation: 4.0 Effacement: 70 Effacement: 90 Effacement: 85 Station: -2 Station: -2 Station: -2 Contractions: q 1-3 min MEMBRANES: [id number] Comments: Pt seen and examined. Doing well. Comfortable w/ epidural. Happy with progress of induction. Agrees to AROM. Reviewed , prior delivery hx, EWF, and adequate pelvis. All questions answered. Vertex well applied and AROM easily performed for moderate amount of clear fluid. Pt and baby tolerated well. FETUS A: [id number] FHR Baseline: 125 Variability: Moderate 6-25bpm Accelerations: 15X15 Decelerations: Variable FHR Category: Category II Presentation: Vertex FETUS B: [id number] Signing Physician: Leonard Dawn DO Copies: ~ *Electronically Signed* 11/04/24 LEONARD PHILLIPS (BASILIO) DO PATIENT NAME: JOB PATEL PROGRESS NOTE DATE OF : 95 PHYSICIAN: LEONARD DAWN) DO RPT #: [id number] REPORT IS CONFIDENTIAL AND NOT TO BE RELEASED WITHOUT AUTHORIZATION
[2024-11-04] MEDS ORDERED: LIDOCAINE HCL 2% 5 ML SDV ONE (16:36)
[2024-11-04] MEDS ORDERED: TRANEXAMIC ACID IN NACL,ISO-OS 0 ML IV ONE (16:59)
--- NOTE | 2024-11-04 17:05 | PR ---
[facility] [address] [facility] [place] [address] Signed Progress Notes IP Datetime Report Generated by CPN: 11/04/2024 17:05 Impression: Normal Progression of Labor; Reassuring Heart Rate Procedures: Sterile Vag Exam Plan: Continue Present Management; Anticipate Vaginal Delivery Informed Consent Obtain: Vaginal Delivery Dilatation: 10.0 Effacement: 100 Effacement: 80 Effacement: 75 Station: 1 Station: -2 Station: -2 Contractions: q 2-3 min Comments: Called to pt bedside for evaluation. Now 2. Anticipate soon. All questions answered. Variability: Moderate 6-25bpm Decelerations: Late Signing Physician: Leonard Dawn DO Copies: ~ *Electronically Signed* 11/04/24 6796 LEONARD DAWN) DO PATIENT NAME: JOB PATEL PROGRESS NOTE DATE OF : 95 PHYSICIAN: LEONARD DAWN DO (JD) RPT #: [id number] REPORT IS CONFIDENTIAL AND NOT TO BE RELEASED WITHOUT AUTHORIZATION
[2024-11-04] MEDS ORDERED: BENZOCAINE 60 ML AEROSOL TOP PRN (17:45)
[2024-11-04] MEDS ORDERED: MAGNESIUM HYDROXIDE 30 ML UDC PO PRN (17:45)
[2024-11-04] MEDS ORDERED: OXYTOCIN/0.9 % SODIUM CHLORIDE 500 ML IV SCH (17:45)
[2024-11-04] MEDS ORDERED: HYDROCORTISONE ACETATE 25 MG SUPP PR PRN (17:45)
[2024-11-04] MEDS ORDERED: ACETAMINOPHEN 325 MG TAB PO PRN (17:45)
[2024-11-04] MEDS ORDERED: HYDROCODONE/ACETA 5/325 TAB PO PRN (17:45)
[2024-11-04] MEDS ORDERED: WITCH HAZEL/GLYCERIN 1 EA PAD TOP PRN (17:45)
[2024-11-04] MEDS ORDERED: IBUPROFEN 600 MG TAB PO PRN (17:45)
[2024-11-04] MEDS ORDERED: SENNOSIDES/DOCUSATE 1 EA TAB PO SCH (21:00)
[2024-11-05 06:24] LABS: MCH 23.9 PG (25.6-32.2); MCHC 31.2 g/dL (32.2-35.5); MCV 76.8 fL (79.4-94.8); RBC 3.8 M/uL (3.93-5.22)
--- NOTE | 2024-11-05 08:27 | PR ---
[facility] [address] [facility] [place], [place] [address] Signed PP Progress Notes Datetime Report Generated by CPN: 11/05/2024 08:27 SUBJECTIVE: [id number] Pain: Within Normal Limits Nausea/Vomiting: Denies Flatus: Yes Bowel Movement: No Vital Signs: [id number] Vital Signs: Reviewed; Within Normal Limits Cardiovascular: Normal Respiratory: Normal Abdomen/Uterus: Normal Lochia: Normal Vulva/Perineum: Not Done Breasts: Not Done CVA Tenderness: Normal Extremities: Normal Incision: Not Applicable Progress: Normal Exam Comments: Fundus firm U-2 nontender IMPRESSION/PLAN/PROCEDURES: [id number] Impression: Normal Progression Other Impression: Acute on chronic anemia Progress Notes: Pt seen and examined. Doing well. Ambulating, voiding, and tolerating full diet. Pain and lochia minimal. . No lightheadeness/dizziness. No concerns. Anticipate d/c home tomorrow. Hgb 9.1 (anemia present on admission). Bleeding again has been scant. Signing Physician: Leonard Dawn DO Copies: ~ *Electronically Signed* 11/05/24 0859 LEONARD DAWN (BASILIO) DO PATIENT NAME: JOB PATEL PROGRESS NOTE DATE OF : 95 PHYSICIAN: LEONARD DAWN (JD) DO RPT #: [id number] REPORT IS CONFIDENTIAL AND NOT TO BE RELEASED WITHOUT AUTHORIZATION
[2024-11-05] MEDS ORDERED: LOPERAMIDE HCL 2 MG CAP PO PRN (18:00)
--- NOTE | 2024-11-06 12:42 | PR ---
[facility] [address] [facility] [place], [place] [address] Signed PP Progress Notes Datetime Report Generated by CPN: 11/06/2024 12:42 Pain: Within Normal Limits Flatus: Yes Bowel Movement: No Vital Signs: Reviewed; Within Normal Limits Cardiovascular: Normal Respiratory: Normal Abdomen/Uterus: Normal Lochia: Normal Vulva/Perineum: Not Done Breasts: Not Done CVA Tenderness: Normal Extremities: Normal Incision: Not Applicable Progress: Normal Exam Comments: Fundus firm U-2 nontender Impression: Normal Progression Plan: Discharge Progress Notes: Pt seen and examined. Doing well. Ambulating, voiding, and tolerating full diet. Pain and lochia minimal. . No concerns. Desires d/c home. All questions answered. Discharge meds reviewed. Motrin / ibuprofen. Planning IUD . All questions answered. Signing Physician: Leonard Dawn DO Copies: ~ *Electronically Signed* 11/06/24 1242 LEONARD DAWN (BASILIO) DO PATIENT NAME: JOB PATEL PROGRESS NOTE DATE OF : 95 PHYSICIAN: LEONARD DAWN (BASILIO) DO RPT #: [id number] REPORT IS CONFIDENTIAL AND NOT TO BE RELEASED WITHOUT AUTHORIZATION
== END 2024-11-06 12:54 | disposition home or self-care (01) | DRG 806 ==
LOC: FBCO 19:20 → FBC 11-04 00:32 → FBCO 11-04 22:24 → EDSTATUS 11-04 22:39 → FBC 11-06 12:54
PROVIDERS: Obstetrics & Gynecology; ADMIT Obstetrics & Gynecology; ATTEND Obstetrics & Gynecology
PROC: 10E0XZZ Delivery of Products of Conception, External Approach (ICD-10-PCS; principal; 2024-11-04)
PROC: 10907ZC Drainage of Amniotic Fluid, Therapeutic from Products of Conception, Via Natural or Artificial Opening (ICD-10-PCS; 2024-11-04)
PROC: 3E0P7VZ Introduction of Hormone into Female Reproductive, Via Natural or Artificial Opening (ICD-10-PCS; 2024-11-04)
PROC: 4A1HXCZ Monitoring of Products of Conception, Cardiac Rate, External Approach (ICD-10-PCS; 2024-11-04)
DX: O99.52 Diseases of the respiratory system complicating childbirth (principal); K50.90 Crohn's disease, unspecified, without complications; Z37.0 Single live birth; O99.62 Diseases of the digestive system complicating childbirth; Z3A.39 39 weeks gestation of pregnancy; O99.02 Anemia complicating childbirth; D64.9 Anemia, unspecified; O99.334 Smoking (tobacco) complicating childbirth; F17.290 Nicotine dependence, other tobacco product, uncomplicated; O99.344 Other mental disorders complicating childbirth; F41.9 Anxiety disorder, unspecified; F32.A Depression, unspecified; J45.909 Unspecified asthma, uncomplicated; Z88.7 Allergy status to serum and vaccine; Z91.040 Latex allergy status; Z88.8 Allergy status to other drugs, medicaments and biological substances; O76 Abnormality in fetal heart rate and rhythm complicating labor and delivery
CPT/HCPCS: 01960; 36415; 80307; 85027; 86850; 86900; 86901; 86922; A9270; J2003; J2405; J7121